=== PATIENT | male | born 1980 | race Caucasian/White ===

== ENCOUNTER 2020-08-16 14:19 | Outpatient (REF) | payer BC, MEDICAID, SELFPAY ==
[2020-08-16 14:33] LABS: COVID-19 Test Positive (Negative)
== END 2020-08-16 14:20 | disposition home or self-care (01) ==
LOC: HO.LAB 14:19
PROVIDERS: Visit Provider Internal Medicine
DX: Z20.822 Contact with and (suspected) exposure to COVID-19 (principal)
CPT/HCPCS: 36415; 87635; C9803

== ENCOUNTER 2020-10-28 09:30 | Outpatient (REF) | payer BC, MEDICAID, SELFPAY ==
[2020-10-28 11:27] LABS: MANUAL DIFF FLAG NO
[2020-10-28 11:43] LABS: Basophils Absolute Auto 0.1 X10*3/uL (0.0-0.2); Basophils Percent Auto 0.6 % (0-2); Eosinophils Absolute Auto 0.2 X10*3/uL (0.0-0.4); Eosinophils Percent Auto 2.1 % (0-4); Hematocrit 43.6 % (42-52); Hemoglobin 14.8 g/dl (14.0-18.0); Imm Gran Abs Auto 0.07 X10*3/uL (0.00-0.03); Imm Gran Pct Auto 0.7 % (0.0-0.4); Lymphocytes Absolute Auto 2.4 X10*3/uL (1.2-4.9); Lymphocytes Percent Auto 23.3 % (20-40); Mean Corpuscular HGB Conc 33.9 g/dl (31.0-36.0); Mean Corpuscular Hemoglobin 29.1 pg (27.0-33.0); Mean Corpuscular Volume 85.7 fL (80-98); Mean Platelet Volume 12.2 fL (9.4-12.4); Monocytes Absolute Auto 0.7 X10*3/uL (0.1-1.2); Monocytes Percent Auto 6.8 % (2-11); Neutrophils Absolute Auto 6.8 X10*3/uL (2.0-8.3); Neutrophils Percent Auto 66.5 % (45-73); Platelet Count 178 X10*3/uL (160-400); Red Blood Count 5.09 X10*6/uL (4.60-5.80); Red Cell Distribution Width 13.1 % (11.0-16.0); White Blood Count 10.2 X10*3/uL (4.8-10.8)
[2020-10-28 11:48] LABS: Estimated Average Glucose 260 mg/dL; Hemoglobin A1c % 10.7 %
[2020-10-28 12:02] LABS: Creatinine Urine 114.35 mg/dL; Microalbum/Creatinine Ratio Ur 15.7 ug/mg cr
[2020-10-28 12:15] LABS: Alanine Aminotransferase 32 U/L (0-40); Alkaline Phosphatase 70 U/L (39-117); Anion Gap 14 (12-20); Aspartate Amino Transferase 19 U/L (5-37); Bilirubin Total 0.4 mg/dL (0.0-1.0); Blood Urea Nitrogen 13 mg/dL (9-16); Calcium 9.2 mg/dL (8.4-10.2); Carbon Dioxide 26 mmol/L (22-29); Chloride 100 mmol/L (96-108); Cholesterol 152 mg/dL; Estimated Glomerular Filt Rate > 60; Glucose Fasting 242 mg/dL (60-99); HDL Cholesterol 28 mg/dL; LDL Cholesterol Calculated 93 mg/dl; Potassium 4.4 mmol/L (3.3-5.1); Sodium 136 mmol/L (135-145); Total Protein 6.6 g/dL (6.5-8.0); Triglycerides 159 mg/dL
[2020-10-28 12:18] LABS: Thyroid Stimulating Hormone 0.59 uIU/mL (0.32-4.0)
== END 2020-10-28 09:31 | disposition home or self-care (01) ==
LOC: HO.HMGCLDS 09:30
PROVIDERS: PCP Internal Medicine; Visit Provider Internal Medicine
DX: Z00.00 Encounter for general adult medical examination without abnormal findings (principal); E03.9 Hypothyroidism, unspecified; E11.9 Type 2 diabetes mellitus without complications
CPT/HCPCS: 36415; 80053; 80061; 82043; 83036; 84443; 85025

== ENCOUNTER 2021-01-25 07:51 | Emergency (ER) | payer BC, MEDICAID, SELFPAY ==
--- NOTE | ~2021-01-25 | CT_ITS ---
EXAMINATION: CT ABDOMEN AND PELVIS WITH CONTRAST CLINICAL INFORMATION: Lower abdominal pain. Large nonreducible tender hernia. COMPARISON: None TECHNIQUE: Multidetector volumetric images were obtained from the superior aspect of the liver through the pubic symphysis following administration 100 mL of Omnipaque 350 intravenous contrast. Sagittal and coronal reformatted images were obtained on the technologist's workstation. This CT examination was performed using dose optimization techniques as appropriate, variously including the following: *Automated exposure control *Adjustment of mA and/or kV according to patient size (this includes techniques or standardized protocols for targeted exams where dose is matched to indication/reason for exam; i.e. extremities or head) *Use of iterative reconstruction technique DLP: 1952 mGy-cm FINDINGS: Visualized lung bases are well aerated. The liver is mildly enlarged and demonstrates diffusely decreased attenuation. The gallbladder is normal in appearance. Mild fatty atrophy of the pancreas. The spleen is mildly enlarged measuring 15 cm in maximum dimension. The adrenal glands are unremarkable. Symmetrically enhancing kidneys. No hydronephrosis bilaterally. The stomach is decompressed. Normal caliber loops of small and large bowel. Normal appendix. Large ventral abdominal hernia containing several loops of nonobstructed small bowel. Fascial defect measures approximately 8 x 7 cm in transverse by craniocaudal dimension. A small amount of fluid is also noted dependently within the hernia sac. Normal caliber abdominal aorta. The bladder is normal in appearance. The prostate gland is not enlarged. No inguinal lymphadenopathy. No gross free pelvic fluid. Mild diffuse degenerative changes of the spine. CT/CT abdomen pelvis w con IMPRESSION: 1. Large ventral hernia containing several loops of nonobstructed small bowel. 2. Mild hepatosplenomegaly with diffusely decreased liver attenuation suggesting hepatic steatosis.
[2021-01-25 07:59] VITALS: BP 150/82; PULSE 80; RESP 18; TEMP 36.7; O2SAT 97; BMI 58.3
--- NOTE | 2021-01-25 08:33 | ED.ABDPAIN ---
HPI - Abdominal Pain General Chief Complaint: Abdominal Pain Stated Complaint: abd pain Time Seen by Provider: 01/25/21 08:21 Source: patient Mode of arrival: ambulatory Limitations: no limitations History of Present Illness HPI narrative: 40 y/o male with history of DM2, morbid obesity, HTN, ventral hernia who presents to the ER with 1 day of lower abdominal pain. Patient reports after taking metformin on empty stomach yesterday he started having lower abdominal pain & nausea. He reports the pain is in his lower abdomen and around his hernia and radiates upward. He has not vomited but tried to self induce vomiting yesterday without effect. He has had no fever or chills. He has had normal bowel movements last was right before arrival. He did not take his metformin last night or this morning. He does not have a glucometer and does not know what his sugars have been reading. He has seen a surgeon in the past for his hernia and has been non-reducible for several years. His surgeon initially stated it would be operated on once it was on able to be reduced but since he has not had pain with it decision was made to hold off on surgery. MD elicited complaint: abdominal pain Pertinent past history: other (Abdominal wall hernia) Onset (ago): day(s) (1) Pain Consistency: constant Location: RLQ and LLQ Severity: moderate Pain scale (0-10): 6 Quality: aching Radiation: epigastric Migration to: no migration Exacerbating factors: movement and other (Palpation) Relieving factors: rest Associated symptoms: nausea Related Data Previous Rx's Medication Instructions Recorded enalapril maleate 20 mg tablet 20 mg PO BID #180 tab 03/11/20 metformin 500 mg tablet 1,000 mg PO BID 30 Days #120 tab 11/08/20 clotrimazole-betamethasone 1 1 appl TOPICAL BID 14 Days #45 g 11/18/20 %-0.05 % topical cream fluconazole 100 mg tablet 100 mg PO DAILY #3 tab 11/18/20 (Diflucan) polyethylene glycol 3350 17 17 g PO DAILY #238 g 01/25/21 gram/dose oral powder (Miralax) Allergies Allergy/AdvReac Type Severity Reaction Status Date / Time hepatitis B virus vaccine Allergy Severe RASH Verified 08/16/20 13:56 [Hepatitis B Virus Vaccine] Review of Systems Review of Systems Constitutional: No Fever, No Chills ENT/Mouth: No sore throat, No Rhinorrhea, No Swallowing Difficulty Cardiovascular: No Chest Pain, No SOB, No Orthopnea, No Edema Respiratory: No Cough, No Sputum, No Wheezing, No dyspnea Gastrointestinal: + Nausea, No Vomiting, No Diarrhea, + abdominal Pain, No Hematochezia, No Melena Genitourinary: No Dysuria, No Urinary Frequency, No Hematuria Musculoskeletal: No joint pain, No Myalgias Skin: No Skin Lesions, No rash Neuro: No Weakness, No Numbness, No Dizziness, No Headache, + Fatigue Psych: + Anxiety/Panic, + Depression Heme/Lymph: No Bruising, No Lymphadenopathy Endocrine: No Polyuria, No Polydipsia Physical Exam Vital Signs: Vital Signs: Last Vital Signs Temp 98.1 F 01/25/21 07:59 Pulse 80 01/25/21 07:59 Resp 18 01/25/21 07:59 BP 150/82 H 01/25/21 07:59 Pulse Ox 97 01/25/21 07:59 Body Mass Index 58.3 Appearance: Alert. Oriented X3. No acute distress. Eyes: Pupils equal, round and reactive to light. ENT: Pharynx normal. Neck: Normal inspection. Neck supple. CVS: Normal heart rate and rhythm. Pulses normal. Respiratory: No respiratory distress. Breath sounds normal. Abdomen: Morbidly obese, Soft with large rounded nonreducible hernia, tender with mild erythema on the skin surface. +BS x4 Skin: Skin warm and dry. Normal skin color. Normal skin turgor. No rashes. Extremities: No lower extremity edema. Neuro: Oriented X 3. No motor deficit. No sensory deficit. Course Course Course Narrative: 40 y/o male with history of morbid obesity and longstanding large ventral hernia who presents with lower abdominal pain radiating into his upper abdomen since yesterday. No pain at rest, pain with palpation of the hernia and with movement. Will get basic lab workup and CT scan for further evaluation. It does not appear to an acute surgical issue given its chronicity and lack of pain at rest. Reevaluation(s) Reevaluation #1: Labs are unremarkable. CT scan is showing a large ventral hernia with an 8 cm defect, several loops of non-obstructed bowel within the hernia. Hernia is able to be partially reduced without exquisite pain. He tolerated it well. No signs of strangulation or incarceration. At this time there is no need for acute surgical intervention. Will refer to Bariatric surgery for further evaluation and initiate a bowel regimen. Tylenol and motrin recommended for pain and patient is stable for discharge home with outpatient follow up. MDM - Abdominal Pain Lab Data Result diagrams: 01/25/21 09:27 01/25/21 09:27 Labs: Lab Results 01/25/21 01/25/21 01/25/21 Range/Units 09: 09: 09:27 WBC 11.6 H (4.8-10.8) X10*3/uL RBC 4.84 (4.60-5.80) X10*6/uL Hgb 14.3 (14.0-18.0) g/dl Hct 41.0 L (42-52) % MCV 84.7 (80-98) fL MCH 29.5 (27.0-33.0) pg MCHC 34.9 (31.0-36.0) g/dl RDW 13.2 (11.0-16.0) % Plt Count 158 L (160-400) X10*3/uL MPV 11.4 (9.4-12.4) fL Immature Gran % (Auto) 0.5 H (0.0-0.4) % Neut % (Auto) 67.9 (45-73) % Lymph % (Auto) 21.9 (20-40) % [place] % (Auto) 7.2 (2-11) % Eos % (Auto) 2.2 (0-4) % Baso % (Auto) 0.3 (0-2) % Lymph # (Auto) 2.6 (1.2-4.9) X10*3/uL [place] # (Auto) 0.8 (0.1-1.2) X10*3/uL Eos # (Auto) 0.3 (0.0-0.4) X10*3/uL Baso # (Auto) 0.0 (0.0-0.2) X10*3/uL Abs Immat Gran (auto) 0.06 H (0.00-0.03) X10*3/uL Absolute Neuts (auto) 7.9 (2.0-8.3) X10*3/uL Absolute Nucleated RBC 0.000 (0.0-0.012) X10*3/uL Nucleated RBC % (auto) 0.0 (0.0-0.2) /100WBC Sodium 135 (135-145) mmol/L Potassium 4.4 (3.3-5.1) mmol/L Chloride 99 (96-108) mmol/L Carbon Dioxide 28 (22-29) mmol/L Anion Gap 12 (12-20) BUN 11 (9-16) mg/dL Creatinine 0.75 (0.5-1.4) mg/dL Estim Creat Clear Calc 228.3 Estimated GFR > 60 POC Glucose (60-115) mg/dL Random Glucose 260 H (60-115) mg/dL Estimat Average Glucose 249 mg/dL Hemoglobin A1c % 10.3 % Calcium 8.7 (8.4-10.2) mg/dL Total Bilirubin 0.5 (0.0-1.0) mg/dL AST 14 (5-37) U/L ALT 24 (0-40) U/L Alkaline Phosphatase 59 (39-117) U/L Total Protein 6.3 L (6.5-8.0) g/dL Albumin 3.7 (3.5-5.0) g/dL Lipase 34 (8-78) U/L Urine Color Urine Appearance Urine pH (5.0-8.0) Ur Specific [place] (1.005-1.025) Urine Protein (NEG-TRACE) MG/DL Urine Glucose (UA) (NEG) MG/DL Urine Ketones (NEG) MG/DL Urine Blood (NEG) Urine Nitrite (NEG) Ur Leukocyte Esterase (NEG) 01/25/21 01/25/21 Range/Units 09:33 10:27 WBC (4.8-10.8) X10*3/uL RBC (4.60-5.80) X10*6/uL Hgb (14.0-18.0) g/dl Hct (42-52) % MCV (80-98) fL MCH (27.0-33.0) pg MCHC (31.0-36.0) g/dl RDW (11.0-16.0) % Plt Count (160-400) X10*3/uL MPV (9.4-12.4) fL Immature Gran % (Auto) (0.0-0.4) % Neut % (Auto) (45-73) % Lymph % (Auto) (20-40) % [place] % (Auto) (2-11) % Eos % (Auto) (0-4) % Baso % (Auto) (0-2) % Lymph # (Auto) (1.2-4.9) X10*3/uL [place] # (Auto) (0.1-1.2) X10*3/uL Eos # (Auto) (0.0-0.4) X10*3/uL Baso # (Auto) (0.0-0.2) X10*3/uL Abs Immat Gran (auto) (0.00-0.03) X10*3/uL Absolute Neuts (auto) (2.0-8.3) X10*3/uL Absolute Nucleated RBC (0.0-0.012) X10*3/uL Nucleated RBC % (auto) (0.0-0.2) /100WBC Sodium (135-145) mmol/L Potassium (3.3-5.1) mmol/L Chloride (96-108) mmol/L Carbon Dioxide (22-29) mmol/L Anion Gap (12-20) BUN (9-16) mg/dL Creatinine (0.5-1.4) mg/dL Estim Creat Clear Calc Estimated GFR POC Glucose 228 H (60-115) mg/dL Random Glucose (60-115) mg/dL Estimat Average Glucose mg/dL Hemoglobin A1c % % Calcium (8.4-10.2) mg/dL Total Bilirubin (0.0-1.0) mg/dL AST (5-37) U/L ALT (0-40) U/L Alkaline Phosphatase (39-117) U/L Total Protein (6.5-8.0) g/dL Albumin (3.5-5.0) g/dL Lipase (8-78) U/L Urine Color YELLOW Urine Appearance CLEAR Urine pH 7.5 (5.0-8.0) Ur Specific [place] 1.015 (1.005-1.025) Urine Protein NEG (NEG-TRACE) MG/DL Urine Glucose (UA) 250 H (NEG) MG/DL Urine Ketones NEG (NEG) MG/DL Urine Blood NEG (NEG) Urine Nitrite NEG (NEG) Ur Leukocyte Esterase NEG (NEG) Discharge Plan Discharge Clinical Impression: Ventral hernia Qualifiers: Obstruction and gangrene presence: without obstruction or gangrene Qualified Code(s): K43.9 - Ventral hernia without obstruction or gangrene Patient Disposition: Home, Self-Care Instructions: Ventral Hernia (ED), Ventral Hernia Repair (DC) Additional Instructions: Your CT scan today showed the large hernia in your abdomen with stool within it. No obstruction. Recommend starting the prescribed laxative to help clear out your bowels You can also add over the counter colace and senna Recommend following up with the Bariatric surgeron for further evaluation If you develop worsening pain or vomiting, come back to the ER for further evaluation. Prescriptions: New polyethylene glycol 3350 [Miralax] 17 gram/dose powder 17 g PO DAILY Qty: 238 RF: 0 No Action enalapril maleate 20 mg tablet 20 mg PO BID Qty: 180 RF: 8 metformin 500 mg tablet 1,000 mg PO BID 30 Days Qty: 120 RF: 5 clotrimazole-betamethasone 1-0.05 % cream 1 appl topical BID 14 Days Qty: 45 RF: 0 fluconazole [Diflucan] 100 mg tablet 100 mg PO DAILY Qty: 3 RF: 0 Referrals: Nik Altamirano MD [Physician] - 1 week (large ventral hernia, painful. BMI 58) Stand Alone Forms: Work/School Release [facility] Past Medical History Medical History (Updated 01/25/21 @ 12:03 by NILSON Gallegos) Diabetes mellitus Surgical History History of surgery on arm Family History Family History Father Hypertension Mother Hypertension Maternal Grandmother CAD (coronary artery disease) Maternal Grandfather Lung cancer Smoker Social History Social History (Updated 08/16/20 @ 13:57 by MARICRUZ Bill) Alcohol intake: never Patient Tobacco Use Status: Current everyday Tobacco user Cigarettes Per Day: 10 Use of substances other than those prescribed or required for medical reasons: Yes Substance Use Type: Marijuana Advance Directives: No Advance Directives Information Provided: No
--- NOTE | 2021-01-25 09:28 | PC.NURSE ---
pt's weight is 195.4kg (bed weight)
[2021-01-25 09:33] LABS: MANUAL DIFF FLAG NO
[2021-01-25 09:35] LABS: Basophils Percent Auto 0.3 % (0-2); Eosinophils Absolute Auto 0.3 X10*3/uL (0.0-0.4); Eosinophils Percent Auto 2.2 % (0-4); Hemoglobin 14.3 g/dl (14.0-18.0); Imm Gran Abs Auto 0.06 X10*3/uL (0.00-0.03); Imm Gran Pct Auto 0.5 % (0.0-0.4); Lymphocytes Absolute Auto 2.6 X10*3/uL (1.2-4.9); Lymphocytes Percent Auto 21.9 % (20-40); Mean Corpuscular HGB Conc 34.9 g/dl (31.0-36.0); Mean Corpuscular Hemoglobin 29.5 pg (27.0-33.0); Mean Corpuscular Volume 84.7 fL (80-98); Mean Platelet Volume 11.4 fL (9.4-12.4); Monocytes Absolute Auto 0.8 X10*3/uL (0.1-1.2); Monocytes Percent Auto 7.2 % (2-11); Neutrophils Absolute Auto 7.9 X10*3/uL (2.0-8.3); Neutrophils Percent Auto 67.9 % (45-73); Platelet Count 158 X10*3/uL (160-400); Red Blood Count 4.84 X10*6/uL (4.60-5.80); Red Cell Distribution Width 13.2 % (11.0-16.0); White Blood Count 11.6 X10*3/uL (4.8-10.8)
[2021-01-25 09:38] LABS: Glucose, Whole Blood 228 mg/dL (60-115)
[2021-01-25] MEDS: 0.9 % Sodium Chloride 1,000 ML 999 ML IV (09:40)
[2021-01-25 09:42] LABS: Estimated Average Glucose 249 mg/dL; Hemoglobin A1c % 10.3 %
[2021-01-25 09:50] LABS: Alanine Aminotransferase 24 U/L (0-40); Albumin Level 3.7 g/dL (3.5-5.0); Alkaline Phosphatase 59 U/L (39-117); Anion Gap 12 (12-20); Aspartate Amino Transferase 14 U/L (5-37); Bilirubin Total 0.5 mg/dL (0.0-1.0); Blood Urea Nitrogen 11 mg/dL (9-16); Calcium 8.7 mg/dL (8.4-10.2); Carbon Dioxide 28 mmol/L (22-29); Chloride 99 mmol/L (96-108); Creatinine Clr Calc Pharmacy 228.3; Estimated Glomerular Filt Rate > 60; Glucose Random 260 mg/dL (60-115); Lipase 34 U/L (8-78); Potassium 4.4 mmol/L (3.3-5.1); Sodium 135 mmol/L (135-145); Total Protein 6.3 g/dL (6.5-8.0)
[2021-01-25 10:33] LABS: Appearance Urine CLEAR; Color Urine YELLOW; Glucose Urine UA 250 MG/DL (NEG); Leukocyte Esterase Urine NEG (NEG); Nitrite Urine NEG (NEG); PH 7.5 (5.0-8.0); Specific Gravity - Urine 1.015 (1.005-1.025); Urine Blood NEG (NEG); Urine Ketones NEG (NEG); Urine Protein NEG (NEG-TRACE)
[2021-01-25] MEDS: iohexoL 350 MG/ML 100 ML INFUS..BTL IV (11:00)
[2021-01-25] MEDS: polyethylene glycoL 3350 17 GM POWD.PACK PO (12:26)
== END 2021-01-25 12:42 | disposition home or self-care (01) ==
PROVIDERS: Physician Assistant; Emergency Provider Emergency Medicine; PCP Internal Medicine
DX: K43.9 Ventral hernia without obstruction or gangrene (principal); I10 Essential (primary) hypertension; E11.9 Type 2 diabetes mellitus without complications; E66.01 Morbid (severe) obesity due to excess calories; Z68.43 Body mass index [BMI] 50.0-59.9, adult; Z79.84 Long term (current) use of oral hypoglycemic drugs
CPT/HCPCS: 36415; 74177; 80053; 81003; 82947; 83036; 83690; 85025; 96360; 99284; Q9967

== ENCOUNTER 2021-04-16 10:05 | Emergency (ER) | payer BC, MEDICAID, SELFPAY ==
--- NOTE | ~2021-04-16 | XR_ITS ---
EXAMINATION: XR LUMBOSACRAL SPINE CLINICAL INFORMATION: Low back pain. COMPARISON: None TECHNIQUE: Three views of the lumbosacral spine. Penetration is suboptimal. FINDINGS: There is normal lumbar lordosis and spinal alignment. Mild lumbar levoscoliosis is seen with apex at L3. Mild degenerative disc disease is seen from T12-L1 to L3-L4 with disc space narrowing and marginal osteophyte formation. The vertebral bodies are intact. There is no acute fracture. The facet joints are unremarkable. The soft tissues are unremarkable. XR/XR lumbar spine 2-3V IMPRESSION: Mild lumbar levoscoliosis and mild superior degenerative changes without acute abnormality.
[2021-04-16 11:36] VITALS: BP 180/80; PULSE 81; RESP 18; TEMP 36.6; O2SAT 96; BMI 58.3
--- NOTE | 2021-04-16 14:15 | ED.FALL ---
HPI - Fall General Chief Complaint: Fall Stated Complaint: fell down stairs/ back pain Time Seen by Provider: 04/16/21 14:05 Source: patient Mode of arrival: ambulatory Limitations: no limitations History of Present Illness HPI Narrative: 40-year-old male presenting to the ED after he had a mechanical fall where he fell down approximately 3 steps ride so arrival due to black ice. He denies head injury or loss of consciousness. He denies any other injuries complaints or concerns at this time. He denies any paresthesias, bowel or bladder incontinence or retention. He denies being on any blood thinners. 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) Fall from: down stairs (#) (Approximately 3 steps) Fall witnessed: no Place fall occurred: street (Outside of his house) Loss of consciousness: none Prolonged down time: no Symptoms prior to fall: none Context: tripped/slipped Location of injury: back Severity: severe Severity scale (1-10): >10 Quality: aching and throbbing Associated symptoms (after fall): denies Related Data Previous Rx's Medication Instructions Recorded enalapril maleate 20 mg tablet 20 mg PO BID #180 tab 03/11/20 metformin 500 mg tablet 1,000 mg PO BID 30 Days #120 tab 11/08/20 clotrimazole-betamethasone 1 1 appl TOPICAL BID 14 Days #45 g 11/18/20 %-0.05 % topical cream fluconazole 100 mg tablet 100 mg PO DAILY #3 tab 11/18/20 (Diflucan) polyethylene glycol 3350 17 17 g PO DAILY #238 g 01/25/21 gram/dose oral powder (Miralax) diazepam 10 mg tablet (Valium) 10 mg PO Q8H PRN #14 tab 04/16/21 docusate sodium 100 mg capsule 100 mg PO BID PRN #14 cap 04/16/21 (Colace) ibuprofen 800 mg tablet 800 mg PO Q8H PRN #14 tab 04/16/21 oxycodone 5 mg tablet 5 mg PO Q6H PRN #14 tab 04/16/21 Allergies Allergy/AdvReac Type Severity Reaction Status Date / Time hepatitis B virus vaccine Allergy Severe RASH Verified 08/16/20 13:56 [Hepatitis B Virus Vaccine] Review of Systems Review of Systems: Constitutional : No trauma, No Weight loss, No Fever, No Chills, ENT/Mouth : No Hearing loss, No Ear Pain, No Nasal Congestion, No Sinus Pain, No Hoarseness, No sore throat, No Rhinorrhea, No Swallowing Difficulty Cardiovascular : No Chest Pain, No SOB Respiratory : No Cough, No Dyspnea Gastrointestinal : No Nausea, No Vomiting, No Diarrhea, No abdominal Pain, No Hematochezia, No Melena Genitourinary : No Dysuria, No Urinary Frequency, No Hematuria, No Urinary or Bowel Incontinence/retention Musculoskeletal : + Back pain due to fall, No neck pain, No joint stiffness, No joint swelling Skin : No Skin Lesions, No rash or signs of infection Neuro : No Weakness, No radiation, No Numbness, No Paresthesias, No headache, no loss of bowel or bladder incontinence, no saddle anesthesia, Focal weakness, No radiation Denies history of IV drug usage. Yes all other systems are reviewed and are negative [facility] Past Medical History Attestation statement: The following information was validated with the patient. Medical History Diabetes mellitus Surgical History History of surgery on arm Family History Family History Father Hypertension Mother Hypertension Maternal Grandmother CAD (coronary artery disease) Maternal Grandfather Lung cancer Smoker Social History Social History Alcohol intake: never Patient Tobacco Use Status: Current everyday Tobacco user Cigarettes Per Day: 10 Substance Use Type: Marijuana Advance Directives: No Advance Directives Information Provided: No Physical Exam Vital Signs: Vital Signs: Last Vital Signs Temp 97.9 F 04/16/21 11:36 Pulse 81 04/16/21 11:36 Resp 18 04/16/21 11:36 BP 180/80 H 04/16/21 11:36 Pulse Ox 96 04/16/21 11:36 BMI result Body Mass Index 58.3 vital signs have been reviewed as normal and appeared to be correct. Blood pressure normal. Heart rate normal. Respiration rate normal. Temperature normal. Oxygen saturation normal. Appearance: Alert. Oriented X3. No acute distress. Head: Normal external exam. Normocephalic. Atraumatic. No Suazo signs noted. No raccoon eyes noted Eyes: PERRLA. EOMI. Conjunctiva and sclera normal. Eyelids normal. ENT: EAC normal. TM's Normal. No septal hematoma noted. No hemotympanum noted. Pharynx normal. Uvula midline. Moist mucous membranes. No trismus noted. No drooling noted. No muffled voice noted. Neck: Normal inspection. Neck supple. FROM. No adenopathy. Thyroid Normal. No meningeal signs. No neck mass noted. CVS: Normal heart rate and rhythm. Heart sound normal. No murmurs noted. Pulses normal throughout. Respiratory: No respiratory distress. Painless inspiration. Breath sounds normal. No wheezes/rales/rhonchi noted. Chest nontender. No accessory muscle usage noted or decreased air movement noted. Abdomen: Soft and nontender. Bowel sounds normal in all 4 quadrants. No distention noted. No organomegaly noted. No visible injury noted. Back: No CVA tenderness. Full range of motion noted. No obvious deformities, or edema. Mild para-spinal muscular tenderness from lumbar region to coccyx. Full ROM in back and lower extremities. 5/5 strength hip extension/flexion, abduction, adduction. Mild Lumbar pain with hip flexion against resistance. Straight leg raise test negative on right; Straight leg raise test negative on left; Reflexes normal ankle and knee bilaterally; EHL motor strength normal bilaterally. No rashes/lesion/induration/fluctuance or signs infection noted. No abrasion/laceration/ecchymosis or obvious signs of trauma. Skin: Skin warm and dry. Normal skin color. Normal skin turgor. No rashes/lesions/lacerations noted. Extremities: Extremities exhibit normal range of motion. Extremities nontender. Neuro: Oriented X 3. No motor deficit. No sensory deficit. Reflexes normal. Patient has a normal steady gait. Course Course Course Narrative: Pt c likely muscular pain, but could be herniated disc. Neuro exam shows no deficits. Not c/w AAA/epidural abscess/dissection.No high risk Hx (Incont, fever, immunosupp, recent surgery/LP, coag, signif trauma, wt loss, puls mass, hx/o Ca, TB, or IVDU) to warrant MRI/CT today. Not c/w Pyelo/UTI/kidney stone/spinal fx. Not cauda equina syndrome. X-ray imaging of lumbar spine obtained and negative for any acute process only revealed chronic changes. Therefore at this time will DC home with symptomatic treatment instructions return if any new or worsening symptoms to follow up with primary care provider. Patient understands agrees with this plan. MDM - Fall Medical Records Attestation: I reviewed the patient's medical records. Imaging Data Lumbar spine x-ray: Attestation: I personally reviewed and interpreted this imaging study as follows: Radiologist's impression: FINDINGS: There is normal lumbar lordosis and spinal alignment. Mild lumbar levoscoliosis is seen with apex at L3. Mild degenerative disc disease is seen from T12-L1 to L3-L4 with disc space narrowing and marginal osteophyte formation. The vertebral bodies are intact. There is no acute fracture. The facet joints are unremarkable. The soft tissues are unremarkable. XR/XR lumbar spine 2-3V IMPRESSION: Mild lumbar levoscoliosis and mild superior degenerative changes without acute abnormality. Discharge Plan Discharge Clinical Impression: Lumbar strain, Fall Patient Disposition: Home, Self-Care Instructions: Low Back Strain (ED), Lower Back Exercises (ED) Prescriptions: New oxycodone 5 mg tablet 5 mg PO Q6H PRN (Reason: pain) Qty: 14 RF: 0 docusate sodium [Colace] 100 mg capsule 100 mg PO BID PRN (Reason: Constipation) Qty: 14 RF: 0 diazepam [Valium] 10 mg tablet 10 mg PO Q8H PRN (Reason: muscle spasm) Qty: 14 RF: 0 ibuprofen 800 mg tablet 800 mg PO Q8H PRN (Reason: pain) Qty: 14 RF: 0 No Action enalapril maleate 20 mg tablet 20 mg PO BID Qty: 180 RF: 8 metformin 500 mg tablet 1,000 mg PO BID 30 Days Qty: 120 RF: 5 clotrimazole-betamethasone 1-0.05 % cream 1 appl topical BID 14 Days Qty: 45 RF: 0 fluconazole [Diflucan] 100 mg tablet 100 mg PO DAILY Qty: 3 RF: 0 polyethylene glycol 3350 [Miralax] 17 gram/dose powder 17 g PO DAILY Qty: 238 RF: 0 Referrals: Vic Garcia MD [Primary Care Provider] - 2 days Stand Alone Forms: Work/School Release Print Language: Swedish
[2021-04-16] MEDS: Ibuprofen 800 MG TABLET PO (14:34)
== END 2021-04-16 14:37 | disposition home or self-care (01) ==
PROVIDERS: Emergency Provider Emergency Medicine; PCP Internal Medicine
DX: S39.012A Strain of muscle, fascia and tendon of lower back, initial encounter (principal); E11.9 Type 2 diabetes mellitus without complications; W00.0XXA Fall on same level due to ice and snow, initial encounter; Y93.9 Activity, unspecified; Y92.410 Unspecified street and highway as the place of occurrence of the external cause; Y99.9 Unspecified external cause status
CPT/HCPCS: 72100; 99283

== ENCOUNTER 2021-07-07 12:26 | Outpatient (REF) | payer BC, MEDICAID, SELFPAY ==
--- NOTE | ~2021-07-07 | XR_ITS ---
EXAMINATION: XR KNEE, RIGHT CLINICAL INFORMATION: Right knee pain. COMPARISON: None TECHNIQUE: AP and lateral views of the right knee. FINDINGS: Tiny lateral and patellofemoral compartment marginal osteophytes. No osseous erosion. No fracture or dislocation. Trace joint effusion. Superior patellar enthesophytes. XR/XR knee RT 2V IMPRESSION: Minimal patellofemoral and lateral compartment osteoarthritis. Trace joint effusion.
== END 2021-07-07 12:27 | disposition home or self-care (01) ==
LOC: HO.XRAY 12:26
PROVIDERS: PCP Internal Medicine; Visit Provider Internal Medicine
DX: M25.561 Pain in right knee (principal)
CPT/HCPCS: 73560

== ENCOUNTER 2021-08-19 11:00 | Outpatient (RCR) | payer BC, MEDICAID, SELFPAY ==
--- NOTE | 2021-05-19 13:11 | MHC.PT.EP ---
[facility] [place] Office [place] Office [place] Office [address] [phone] F: [phone] F: [phone] F: [phone] F: [phone] Physical Therapy Plan of Care Date of Evaluation: Date of Surgery: Diagnosis: lumbago with L sided sciatica Assessment: Patient is a 41 year old R handed male who presents with s/s consistent with spondylosis of lumbosacral region. He works with daily job demands including standing, lifting at [employer]. Patient past medical history is DM and obesity. Current impairments include pain, posture, ROM, strength, activity tolerance and functional mobility. Functional limitations include decreased ability to sleep, lift, bend, carry, sit for longer periods, and transfer. Patient is motivated with good rehab potential. Skilled PT will address impairments and functional limitations in order to achieve goals. 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 Manual therapy to restore motion and function. Therapeutic exercise to improve strength and flexibility. Neuromuscular re-education for posture and balance. Therapeutic activities to return to functional activities of daily living. Electronically signed by: Jordin Norman, PT Please sign and return to therapist. Thank you for your referral.
--- NOTE | 2022-01-01 08:40 | MHC.PT.DC ---
[facility] [place] Office [place] [facility] [place] [facility] [address] Dang Naidu [address] [phone] F: [phone] F: [phone] F: [phone] F: [phone] Physical Therapy Discharge Report Diagnosis: lumbago with L sided sciatica Date of Surgery: Date of Evaluation: 05/19/21 Date of Discharge: 09/13/21 Treatments to Date: 8 Cancellations to Date: No Shows to Date: Discharge Status: Improved Function Independent with HEP Discharge Summary: We discussed plan at length today and decided to hold on continuing therapy. Pt has HEP and ability to continue on his own. I also encouraged him to follow up with [facility] as indicated by his referring MD. He will call back after he does this. Electronically signed by: Jordin Norman PT Please sign and return to therapist. Thank you for your referral.
== END 2022-01-01 08:40 | disposition home or self-care (01) ==
LOC: HO.PTCHIC 11:00
PROVIDERS: Visit Provider Nurse Practitioner Acute Care
DX: M47.817 Spondylosis without myelopathy or radiculopathy, lumbosacral region (principal)
CPT/HCPCS: 97014; 97110; 97161

== ENCOUNTER 2021-11-25 10:27 | Inpatient (IN) | payer BC, MEDICAID, SELFPAY ==
[2021-11-25] VITALS (14 sets, daily range): BP systolic 140–194; BP diastolic 68–129; PULSE 65–88; RESP 15–24; TEMP 35.7–37; O2SAT 93–100; BMI 58.3
--- NOTE | ~2021-11-25 | CT_ITS ---
EXAMINATION: CT ABDOMEN AND PELVIS WITH CONTRAST CLINICAL INFORMATION: Umbilical hernia and pain. COMPARISON: CT of the abdomen and pelvis done on 01/25/2021. TECHNIQUE: Multidetector volumetric images were obtained from the superior aspect of the liver through the pubic symphysis following administration 100 mL of Omnipaque 350 intravenous contrast. Sagittal and coronal reformatted images were obtained on the technologist's workstation. Oral contrast: No This CT examination was performed using dose optimization techniques as appropriate, variously including the following: *Automated exposure control *Adjustment of mA and/or kV according to patient size (this includes techniques or standardized protocols for targeted exams where dose is matched to indication/reason for exam; i.e. extremities or head) *Use of iterative reconstruction technique DLP: 2108 mGy-cm FINDINGS: LUNG BASES: The visualized lung bases are unremarkable. LIVER, GALLBLADDER, AND BILIARY TREE: Diffuse hepatic hypodensity consistent with hepatic steatosis is present. The gallbladder is unremarkable with no evidence of radiopaque gallstones, gallbladder wall thickening, or obvious pericholecystic inflammatory changes. PANCREAS: Unremarkable. SPLEEN: Unremarkable. ADRENAL GLANDS: Unremarkable. KIDNEYS AND URETERS: The kidneys are normal in size, shape, and attenuation. No hydronephrosis, hydroureter, or calculi seen. No perinephric stranding. BLADDER: Unremarkable. GASTROINTESTINAL TRACT: Multiple dilated small bowel loops with air-fluid level are noted within the proximal and mid to lower abdomen. Specific note is made of small bowel and adjacent mesentery containing large umbilical hernia. The maximum transverse width of the fascial defect measures 10.7 cm (614:4). Multiple dilated bowel loops are noted within the herniated sac associated with small amount of fluid and significant fat stranding. The distal exiting small bowel loop appear collapsed. The findings are consistent with small bowel obstruction secondary to umbilical hernia, possibly incarcerated. Clinical correlation is recommended. No evidence of any pneumatosis or free intraperitoneal air. No evidence of any portal mesenteric venous gas. ABDOMINAL WALL: Large [place] umbilical hernia containing obstructing small bowel loops are noted as described above. LYMPH NODES: Normal. VASCULAR: Unremarkable. PELVIC VISCERA: There is no pelvic mass present. No evidence of any free fluid and/or free air present. OSSEOUS STRUCTURES: Severe diffuse osteopenia and moderate multilevel degenerative spondylosis and ankylosis of lower thoracic spine the form of fusion of interspinous as well as the anterior and posterior intervertebral longitudinal ligaments. CT/CT abdomen pelvis w con IMPRESSION: 1. Abnormal study showing evidence of large umbilical hernia containing small bowel loops and mesentery, complicated by superimposed obstruction. The findings are suspicious for possible incarceration. Clinical correlation is recommended. No evidence of any pneumatosis or free intraperitoneal air or evidence of portal mesenteric venous gas. 2. Diffuse hepatic steatosis. Fleischner guidelines were followed.
--- NOTE | 2021-11-25 11:17 | ECG_ITS ---
Test Reason : abd Blood Pressure : / mmHG Vent. Rate : 069 BPM Atrial Rate : 069 BPM P-R Int : 182 ms QRS Dur : 084 ms QT Int : 394 ms P-R-T Axes : 047 037 029 degrees QTc Int : 422 ms Normal sinus rhythm Normal ECG When compared with ECG of 25-APR-2019 13:14, No significant change was found Referred By: Robert Goncalves Electronically Signed By:MORRIS LACY
[2021-11-25 11:49] LABS: MANUAL DIFF FLAG NO
[2021-11-25] MEDS: Ketorolac Tromethamine 15 MG/ML VIAL IVPUSH (11:52)
[2021-11-25] MEDS: HYDROmorphone HCl 1 MG/ML SYRINGE IVPUSH ×3 (11:52→16:49)
[2021-11-25] MEDS: ondansetron HCL 4 MG/2 ML VIAL IVPUSH ×2 (11:52→20:58)
[2021-11-25] MEDS: 0.9 % Sodium Chloride 1,000 ML 999 ML IV (11:53)
[2021-11-25 11:57] LABS: Basophils Absolute Auto 0.1 X10*3/uL (0.0-0.2); Basophils Percent Auto 0.5 % (0-2); Eosinophils Absolute Auto 0.1 X10*3/uL (0.0-0.4); Eosinophils Percent Auto 0.9 % (0-4); Hematocrit 47.6 % (42.0-52.0); Hemoglobin 16.2 g/dl (14.0-18.0); Imm Gran Abs Auto 0.07 X10*3/uL (0.00-0.03); Imm Gran Pct Auto 0.5 % (0.0-0.4); Lymphocytes Absolute Auto 1.7 X10*3/uL (1.2-4.9); Lymphocytes Percent Auto 10.9 % (20-40); Mean Corpuscular Hemoglobin 29.1 pg (27.0-33.0); Mean Corpuscular Volume 85.6 fL (80.0-98.0); Mean Platelet Volume 11.5 fL (9.4-12.4); Monocytes Absolute Auto 0.9 X10*3/uL (0.1-1.2); Neutrophils Absolute Auto 12.5 x10*3/uL (2.0-8.3); Neutrophils Percent Auto 81.2 % (45-73); Platelet Count 184 X10*3/uL (160-400); Red Blood Count 5.56 X10*6/uL (4.60-5.80); Red Cell Distribution Width 13.2 % (11.0-16.0); White Blood Count 15.4 X10*3/uL (4.8-10.8)
[2021-11-25 11:58] LABS: INTERNATIONAL NORM RATIO 0.9 (0.9-1.1); Prothrombin Time 10.8 SEC (10.0-13.1)
[2021-11-25 12:01] LABS: Partial Thromboplastin Time 31.9 SEC (26.0-36.4)
[2021-11-25 12:06] LABS: Lactic Acid 1.7 mmol/L (0.5-2.0)
[2021-11-25 12:14] LABS: Alanine Aminotransferase 23 U/L (0-40); Alkaline Phosphatase 61 U/L (39-117); Anion Gap 17 (12-20); Aspartate Amino Transferase 20 U/L (5-37); Bilirubin Total 0.5 mg/dL (0.0-1.0); Blood Urea Nitrogen 14 mg/dL (9-16); Calcium 8.6 mg/dL (8.4-10.2); Carbon Dioxide 22 mmol/L (22-29); Chloride 102 mmol/L (96-108); Creatinine Clr Calc Pharmacy 238.8; Estimated Glomerular Filt Rate > 60; Glucose Random 205 mg/dL (60-115); Lipase 35 U/L (8-78); Potassium 4.9 mmol/L (3.3-5.1); Sodium 136 mmol/L (135-145); Total Protein 6.6 g/dL (6.5-8.0)
--- NOTE | 2021-11-25 12:14 | ED_ITS ---
HPI - Abdominal Pain General Chief Complaint: Abdominal Pain Stated Complaint: hernia, not able to use bathroom Time Seen by Provider: 11/25/21 10:55 Source: patient Mode of arrival: ambulatory Limitations: no limitations History of Present Illness HPI narrative: 41-year-old male who presents emergency department for evaluation of nausea and abdominal pain which is diffuse and also located over his large, chronic umbilical hernia. Patient states that yesterday around 11:00 hours, he developed nausea which was unusual for him. At around 16:00 hours, he had a gradual onset of abdominal pain. States the pain was located diffusely throughout his abdomen but was more severe over his chronic, large umbilical h ernia. He states the pain was a constant, cramping sensation which had waves of intensity that were 9/10 at its worst. Currently states the pain is 9/10. Patient states that he had nausea but was unable to vomit. He states that he has had small bowel movements yesterday and today. He states that the pain does radiate to his chest and to his back. He denied fever but has had chills. He states he has had rhinorrhea for the past several days. He denied sore throat, cough, vomiting, diarrhea, black stools, bloody stools, frequency, urgency or dysuria. Patient states that he has been having problems with his lower back since June after he fell down some stairs. He is taking gabapentin for this pain. MD elicited complaint: abdominal pain Pertinent past history: other (Large, chronic, umbilical hernia) Onset (ago): day(s) (2) Pain Consistency: constant Location: diffuse and periumbilical Severity: severe Pain scale (0-10): 9 Quality: cramping Radiation: back and chest Migration to: no migration Exacerbating factors: nothing Associated symptoms: nausea and constipation (Small bowel movements x2 days) Related Data Home Medications Medication Instructions Recorded Confirmed gabapentin 300 mg capsule 600 mg PO TID 09/15/21 11/25/21 metformin 500 mg tablet 1,000 mg PO BIDWM 11/25/21 11/25/21 Previous Rx's Medication Instructions Recorded enalapril maleate 20 mg tablet 20 mg PO BID #180 tabs 04/28/21 ibuprofen 800 mg tablet 800 mg PO Q8H PRN pain #20 tabs 08/27/21 sildenafil 50 mg tablet (Viagra) 50 mg PO DAILY PRN sexual activity 10/20/21 #20 tabs Allergies Allergy/AdvReac Type Severity Reaction Status Date / Time hepatitis B virus vaccine Allergy Severe RASH Verified 10/20/21 10:11 [Hepatitis B Virus Vaccine] Review of Systems Review of Systems Yes all other systems are reviewed and are negative [facility] Past Medical History [facility] Narrative: Past medical history: Diabetes mellitus, hypertension, obesity, chronic umbilical hernia. Past surgical history: None. Social history: He smokes 1 pack of cigarettes per day times 20 years. He denies alcohol use. He smokes marijuana 2-3 times daily Medical History Diabetes mellitus Surgical History History of surgery on arm Family History Family History Father Hypertension Mother Hypertension Maternal Grandmother CAD (coronary artery disease) Maternal Grandfather Lung cancer Smoker Social History Social History Housing: Apartment Alcohol intake: never Patient Tobacco Use Status: Current everyday Tobacco user Tobacco use type: Cigarette Cigarettes Per Day: 10 e-Cigarette/Vaping Use: Never Used Second Hand Smoke Exposure: No Substance Use Type: Marijuana Advance Directives: No Advance Directives Information Provided: Yes service: No Current occupational status: employed Current occupational exposures/hazards: No Cognitive needs: No Hearing needs: No Vision needs: Yes Physical Exam ED Vital Signs: Vital Signs - 24 hr 11/25/21 10:47 11/25/21 10:58 11/25/21 15:03 Temperature 96.3 F L 98.6 F Pulse Rate 72 77 69 Respiratory Rate 16 24 H 16 Blood Pressure 174/129 H 194/112 H 153/88 H Pulse Oximetry 99 100 Oxygen Delivery Method Room Air Room Air Room Air BMI result Body Mass Index 58.3 Const Other: Awake, alert, male patient, pleasant, cooperative does appear to be in distress secondary to his abdominal pain, patient has an elevated BMI of 58.3 HENMT Other: Patient has rosacea of the face Head: Yes normal to inspection, Yes normocephalic and Yes atraumatic Ears: external ears normal General nose exam: Normal external nose present Face and sinus: Yes normal facial exam Mouth: Normal oral and palatal mucosa present Throat: Yes posterior oropharynx normal Eyes General: appearance normal, both eyes and all related structures Pupils: Equal, round and reactive pupils present Neck Neck: Yes normal visual inspection, Yes no lymphadenopathy, Yes trachea midline and Yes supple Chest Chest palpation & inspection: normal inspection of the chest and normal palpation of entire chest wall Resp Effort & Inspection: normal respiratory effort and able to speak in complete sentences Auscultation: clear to auscultation bilaterally Cardio Rate: regular rate Rhythm: regular rhythm Heart sounds: S1 normal heart sound present, S2 normal heart sound present and no murmurs GI Inspection: Yes Abdominal panniculus present, Yes obesity and Yes visible herniation (Large umbilical hernia, erythema over the hernia) Palpation (GI): Soft to palpation, Tenderness to palpation present (GI) (Mild diffuse tenderness) periumbilically (Moderate to severe tenderness over umbilical hernia) and no guarding Auscultation: Hyperactive bowel sounds present General: Yes no CVA tenderness Back/Spine/Pelvis Back: no CVA tenderness Skin General skin exam: no rashes or lesions noted Neuro Cranial nerves: Yes CN's II-XII intact bilaterally and Yes Equal, round and reactive pupils present Cognition (Neuro): normal cognition Motor exam (neuro): 5/5 motor strength present throughout Extrem General: Yes normal to inspection Psych Appearance: grossly normal Speech and movement: Normal speech and movement present Affect: normal affect Attitude: cooperative Thought process: Normal thought process present Thought content: Normal thought content present Course Course Course Narrative: 41-year-old male who presents emergency department for evaluation of nausea which began yesterday 11:00 hours and abdominal pain which began at 16:00 hours. The patient has a large, chronic umbilical hernia he states the pain is mainly located over the hernia. He has had no vomiting and only had 2 small bowel movements yesterday and today. Initial vital signs revealed an elevated blood pressure of 174/129 otherwise unremarkable. Patient does appear to be uncomfortable secondary to his pain. He has a large umbilical hernia which is it is very tender to minimal palpation, the hernia is firm, he has hyperactive bowel sounds. Differential includes was not limited to incarcerated hernia, ischemic bowel, constipation. I did order a CBC, CMP, lactic acid, lipase, PT/INR, PTT, COVID-19. CT scan of the abdomen pelvis with IV contrast will be obtained. Patient's nausea was treated with Zofran 4 mg IV. His pain was treated with Dilaudid 1 mg IV and Toradol 15 mg IV. 1225: Laboratory evaluation: WBC elevated 15,400, 81% neutrophils 10% lymphocytes. Glucose elevated 205. Lipase normal. Lactic acid normal 1.7. LFTs normal. 1526: Radiology evaluation: CT scan of the abdomen pelvis with IV contrast being as follows: IMPRESSION: 1. Abnormal study showing evidence of large umbilical hernia containing small bowel loops and mesentery, complicated by superimposed obstruction. The findings are suspicious for possible incarceration. Clinical correlation is recommended. No evidence of any pneumatosis or free intraperitoneal air or evidence of portal mesenteric venous gas. 2. Diffuse hepatic steatosis. Fleischner guidelines were followed. Dictated By:Savannah Thorpe MD The patient initially got relief with the above treatment however his pain is now returned. Patient was given Dilaudid 1 mg IV. I will discuss the CT scan findings and the patient's presentation with the covering surgeon, Dr. Dylan Graham. 1625: The patient was seen by Dr. Graham and he will admit the patient to his service . MDM - Abdominal Pain Lab Data Result diagrams: 11/25/21 11:44 11/25/21 11:44 Labs: Lab Results 11/25/21 11/25/21 11/25/21 Range/Units 11:44 11:44 11:44 WBC 15.4 H (4.8-10.8) X10*3/uL RBC 5.56 (4.60-5.80) X10*6/uL Hgb 16.2 (14.0-18.0) g/dl Hct 47.6 (42.0-52.0) % MCV 85.6 (80.0-98.0) fL MCH 29.1 (27.0-33.0) pg MCHC 34.0 (31.0-36.0) g/dl RDW 13.2 (11.0-16.0) % Plt Count 184 (160-400) X10*3/uL MPV 11.5 (9.4-12.4) fL Immature Gran % (Auto) 0.5 H (0.0-0.4) % Neut % (Auto) 81.2 H (45-73) % Lymph % (Auto) 10.9 L (20-40) % [place] % (Auto) 6.0 (2-11) % Eos % (Auto) 0.9 (0-4) % Baso % (Auto) 0.5 (0-2) % Lymph # (Auto) 1.7 (1.2-4.9) X10*3/uL [place] # (Auto) 0.9 (0.1-1.2) X10*3/uL Eos # (Auto) 0.1 (0.0-0.4) X10*3/uL Baso # (Auto) 0.1 (0.0-0.2) X10*3/uL Abs Immat Gran (auto) 0.07 H (0.00-0.03) X10*3/uL Absolute Neuts (auto) 12.5 H (2.0-8.3) x10*3/uL Absolute Nucleated RBC 0.000 (0.0-0.012) X10*3/uL Nucleated RBC % (auto) 0.0 (0.0-0.2) /100WBC PT 10.8 (10.0-13.1) SEC INR 0.9 (0.9-1.1) APTT 31.9 (26.0-36.4) SEC Sodium 136 (135-145) mmol/L Potassium 4.9 (3.3-5.1) mmol/L Chloride 102 (96-108) mmol/L Carbon Dioxide 22 (22-29) mmol/L Anion Gap 17 (12-20) BUN 14 (9-16) mg/dL Creatinine 0.71 (0.5-1.4) mg/dL Estim Creat Clear Calc 238.8 Estimated GFR > 60 Random Glucose 205 H (60-115) mg/dL Lactic Acid (0.5-2.0) mmol/L Calcium 8.6 (8.4-10.2) mg/dL Total Bilirubin 0.5 (0.0-1.0) mg/dL AST 20 D (5-37) U/L ALT 23 (0-40) U/L Alkaline Phosphatase 61 (39-117) U/L Total Protein 6.6 (6.5-8.0) g/dL Albumin 4.0 (3.5-5.0) g/dL Lipase 35 (8-78) U/L Urine Color Urine Appearance Urine pH (5.0-8.0) Ur Specific [place] (1.005-1.025) Urine Protein (Neg-Trace) mg/dL Urine Glucose (UA) (Negative) mg/dL Urine Ketones (Negative) mg/dL Urine Blood (Negative) Urine Nitrite (Negative) Ur Leukocyte Esterase (Negative) Urine RBC (0-2) /HPF Urine WBC (0-5) /HPF Ur Squamous Epith Cells (0-2) /HPF Urine Bacteria (None Seen) Hyaline Casts (0-2) /LPF COVID-19 (RAMESH) (Negative) COVID-19 Clin Com 11/25/21 11/25/21 11/25/21 Range/Units 11:44 11:44 16:05 WBC (4.8-10.8) X10*3/uL RBC (4.60-5.80) X10*6/uL Hgb (14.0-18.0) g/dl Hct (42.0-52.0) % MCV (80.0-98.0) fL MCH (27.0-33.0) pg MCHC (31.0-36.0) g/dl RDW (11.0-16.0) % Plt Count (160-400) X10*3/uL MPV (9.4-12.4) fL Immature Gran % (Auto) (0.0-0.4) % Neut % (Auto) (45-73) % Lymph % (Auto) (20-40) % [place] % (Auto) (2-11) % Eos % (Auto) (0-4) % Baso % (Auto) (0-2) % Lymph # (Auto) (1.2-4.9) X10*3/uL [place] # (Auto) (0.1-1.2) X10*3/uL Eos # (Auto) (0.0-0.4) X10*3/uL Baso # (Auto) (0.0-0.2) X10*3/uL Abs Immat Gran (auto) (0.00-0.03) X10*3/uL Absolute Neuts (auto) (2.0-8.3) x10*3/uL Absolute Nucleated RBC (0.0-0.012) X10*3/uL Nucleated RBC % (auto) (0.0-0.2) /100WBC PT (10.0-13.1) SEC INR (0.9-1.1) APTT (26.0-36.4) SEC Sodium (135-145) mmol/L Potassium (3.3-5.1) mmol/L Chloride (96-108) mmol/L Carbon Dioxide (22-29) mmol/L Anion Gap (12-20) BUN (9-16) mg/dL Creatinine (0.5-1.4) mg/dL Estim Creat Clear Calc Estimated GFR Random Glucose (60-115) mg/dL Lactic Acid 1.7 (0.5-2.0) mmol/L Calcium (8.4-10.2) mg/dL Total Bilirubin (0.0-1.0) mg/dL AST (5-37) U/L ALT (0-40) U/L Alkaline Phosphatase (39-117) U/L Total Protein (6.5-8.0) g/dL Albumin (3.5-5.0) g/dL Lipase (8-78) U/L Urine Color Yellow Urine Appearance Clear Urine pH 5.5 (5.0-8.0) Ur Specific [place] >= 1.030 H (1.005-1.025) Urine Protein 30 (1+) H (Neg-Trace) mg/dL Urine Glucose (UA) Negative (Negative) mg/dL Urine Ketones Trace (Negative) mg/dL Urine Blood Negative (Negative) Urine Nitrite Negative (Negative) Ur Leukocyte Esterase Negative (Negative) Urine RBC >20 H (0-2) /HPF Urine WBC 0-5 (0-5) /HPF Ur Squamous Epith Cells 3-5 (0-2) /HPF Urine Bacteria None Seen (None Seen) Hyaline Casts 0-2 (0-2) /LPF COVID-19 (RAMESH) Negative (Negative) COVID-19 Clin Com See Note Discharge Plan Discharge Clinical Impression: Incarcerated umbilical hernia, Bowel obstruction Patient Disposition: Admitted As Inpatient Interventions: Admission Worksheet (ED) Last Done: 11/25/21 17:15
[2021-11-25 13:28] LABS: COVID-19 Test Negative (Negative); IDNOW Serial# 16C4AD1C
[2021-11-25] MEDS: iohexoL 350 MG/ML 100 ML INFUS..BTL IV (13:44)
--- NOTE | 2021-11-25 15:43 | PHA.MEDREC ---
Pharmacy Consult ? Medication Reconciliation Pharmacy has completed the medication reconciliation.
[2021-11-25 16:15] LABS: Appearance Urine Clear; Color Urine Yellow; Glucose Urine UA Negative (Negative); Leukocyte Esterase Urine Negative (Negative); Nitrite Urine Negative (Negative); PH 5.5 (5.0-8.0); Specific Gravity - Urine >= 1.030 (1.005-1.025); Urine Blood Negative (Negative); Urine Ketones Trace mg/dL (Negative); Urine Protein 30 (1+) mg/dL (Neg-Trace)
[2021-11-25 16:29] LABS: Bacteria Urine None Seen (None Seen); Hyaline Casts Urine 0-2 /LPF (0-2); RBC Urine >20 /HPF (0-2); WBC Urine 0-5 /HPF (0-5)
--- NOTE | 2021-11-25 16:43 | P.HPGS_ITS ---
History of Present Illness History of Present Illness Date of Service: 11/25/21 Chief complaint: hernia, not able to use bathroom Narrative: Kishore Esposito is a 41 year old male with poorly controlled type 2 diabetes, morbid obesity with a BMI of 58.3/weight of 430 lb, hypertension, possible sleep apnea who recently fell down icy steps earlier this year and has chronic pain related to it. The patient has had an umbilical hernia present for an unclear number of years that is exquisitely painful, incarcerated and causing severe pain and nausea. He has been unable to move his bowels and he presented to the emergency department where I was asked to evaluate him. There has been no prior repair attempts. The patient denies prior abdominal operations. 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 [employer] Review of Systems Review of Systems: Yes all other systems are reviewed and are negative Constitutional: Constitutional: Reports as per [facility] Past Medical History Medical History Diabetes mellitus Family History Family History Father Hypertension Mother Hypertension Maternal Grandmother CAD (coronary artery disease) Maternal Grandfather Lung cancer Smoker Surgical History Surgical History History of surgery on arm Social History Social History Housing: Apartment Alcohol intake: never Patient Tobacco Use Status: Current everyday Tobacco user Tobacco use type: Cigarette Cigarettes Per Day: 10 e-Cigarette/Vaping Use: Never Used Second Hand Smoke Exposure: No Substance Use Type: Marijuana Advance Directives: No Advance Directives Information Provided: Yes service: No Current occupational status: employed Current occupational exposures/hazards: No Cognitive needs: No Hearing needs: No Vision needs: Yes Meds Allergies Allergy/AdvReac Type Severity Reaction Status Date / Time hepatitis B virus vaccine Allergy Severe RASH Verified 10/20/21 10:11 [Hepatitis B Virus Vaccine] Active Medications: Current Medications Pharmacy Consult (Consult Rx Perform Med Rec) 1 each MISCELLANE ONCE PRN PRN Reason: Consult order Home Medications Medication Instructions Recorded Confirmed Last Taken Type gabapentin 300 mg capsule 600 mg PO TID 09/15/21 11/25/21 11/24/21 History metformin 500 mg tablet 1,000 mg PO BIDWM 11/25/21 11/25/21 11/24/21 History Physical Exam Vital Signs: Vital Signs: Last Vital Signs Temp 98.6 F 11/25/21 10:58 Pulse 69 11/25/21 15:03 Resp 16 11/25/21 15:03 BP 153/88 H 11/25/21 15:03 Pulse Ox 100 11/25/21 10:58 O2 Del Method 11/25/21 15:03 BMI result Body Mass Index 58.3 The patient is non-toxic, but anxious and tearful NC/AT, PERRLA, EOMI Mood, affect & judgment all appear appropriate Sclera anicteric conjunctiva pink and moist Oropharynx is clear with no aphthous ulcers, Mallampati class 4, mucous membranes moist Heart is regular, normal S1-S2 no rubs or murmurs Lungs are clear and equal anteriorly with no audible wheezing, rubs or dullness to percussion No CVA tenderness present Abdomen is obese with A TENDER INCARCERATED UMBILICAL HERNIA WITH TROPHIC SKIN CHANGES. No HSM, rebound, rigidity, guarding, masses or bruits are present. Rectal exam is deferred Skin has good turgor and is free of rashes Extremities free of cyanosis clubbing edema Results Results Labs: Short CBC 11/25/21 Range/Units 11:44 WBC 15.4 H (4.8-10.8) X10*3/uL Hgb 16.2 (14.0-18.0) g/dl Hct 47.6 (42.0-52.0) % Plt Count 184 (160-400) X10*3/uL BMP 11/25/21 11:44 Sodium 136 Potassium 4.9 Chloride 102 Carbon Dioxide 22 BUN 14 Creatinine 0.71 Calcium 8.6 Liver Function 11/25/21 Range/Units 11:44 Total Bilirubin 0.5 (0.0-1.0) mg/dL AST 20 D (5-37) U/L ALT 23 (0-40) U/L Alkaline Phosphatase 61 (39-117) U/L Albumin 4.0 (3.5-5.0) g/dL Urine 11/25/21 Range/Units 16:05 Urine Color Yellow Urine Appearance Clear Urine pH 5.5 (5.0-8.0) Ur Specific [place] >= 1.030 H (1.005-1.025) Urine Protein 30 (1+) H (Neg-Trace) mg/dL Urine Glucose (UA) Negative (Negative) mg/dL Abdomen CT scan report/results: report reviewed and image reviewed CT scan - pelvis: report reviewed and image reviewed Assessment and Plan (1) Incarcerated umbilical hernia: Status: Acute (2) Bowel obstruction: Status: Acute (3) Type 2 diabetes mellitus with morbid obesity: Status: Acute (4) Poorly controlled type 2 diabetes mellitus: Status: Acute (5) Hypertension: Status: Acute (6) Morbid obesity: Status: Acute Plan I have explained to the patient the risk of bowel ischemia if the hernia is not repaired emergent lay and explained the risks of surgery which include, but are not limited to bleeding, infection, hernia recurrence, the possible need for a small bowel resection and the possible need to remove his umbilicus if the skin is so thin and/attenuated that it is nonviable. I also explained additional risks from his poorly controlled diabetes and obesity which include, but are not limited to infection, DVT and other complications that could require additional procedures. The patient seemed understand and gave informed consent to proceed. Case was reviewed with Anesthesia. Patient should void his bladder questioned documents examiner, subcu heparin is ordered, SCDs are needed. The patient will need Ancef, 3 g IV and we will proceed as soon as the OR team is assembled. Quality Stroke Does the patient have a stroke diagnosis?: No VTE Prior VTE?: No VTE Risk Level:: Surgical - moderate VTE Device Contraindication: N/A - Device Ordered VTE Drug Contraindication: N/A - Med Ordered Procedures Date of Service Date of Service: 11/25/21
[2021-11-25] MEDS: Heparin Sodium,Porcine 5,000 UNIT/ML VIAL 5000 UNIT SUBCUT (17:11)
--- NOTE | 2021-11-25 17:37 | HO.ANESPROP2 ---
HPI - Anesthesia Eval Consult details Narrative: Incarcerated umbilical hernia PMFSH Active Problems Active Problems: All Active Problems (Updated 11/25/21 @ 16:47 by Dylan Graham MD) Poorly controlled type 2 diabetes mellitus (Acute) Incarcerated umbilical hernia (Acute) Bowel obstruction (Acute) Type 2 diabetes mellitus with morbid obesity (Acute) Physical exam (Acute) Right knee pain (Acute) Hypertension (Acute) Morbid obesity (Acute) Lumbosacral pain (Acute) Fall (on) (from) other stairs and steps, subsequent encounter (Acute) Lumbar and sacral spondylarthritis (Acute) Diabetes mellitus (Acute) Past Medical History Medical History Diabetes mellitus Family History Family History Father Hypertension Mother Hypertension Maternal Grandmother CAD (coronary artery disease) Maternal Grandfather Lung cancer Smoker Family history of problems with anesthesia: No Surgical History Surgical History History of surgery on arm History of Problems with Anesthesia: No Social History Social History Housing: Apartment Alcohol intake: never Patient Tobacco Use Status: Current everyday Tobacco user Tobacco use type: Cigarette Cigarettes Per Day: 10 e-Cigarette/Vaping Use: Never Used Second Hand Smoke Exposure: No Use of substances other than those prescribed or required for medical reasons: Yes Substance Use Type: Marijuana Substance Use Frequency: Daily Are you DNR?: No Advance Directives: No Advance Directives Information Provided: Yes service: No Current occupational status: employed Current occupational exposures/hazards: No Cognitive needs: No Hearing needs: No Vision needs: Yes Meds Allergies Allergy/AdvReac Type Severity Reaction Status Date / Time hepatitis B virus vaccine Allergy Severe RASH Verified 10/20/21 10:11 [Hepatitis B Virus Vaccine] Active Medications: Current Medications Heparin Sodium (Porcine) (Heparin Sodium,Porcine 5,000 Unit/Ml Vial) 5,000 unit SUBCUT Q12H LEVI Last Admin: 11/25/21 17:11 Dose: 5,000 unit Pharmacy Consult (Consult Rx Perform Med Rec) 1 each MISCELLANE ONCE PRN PRN Reason: Consult order Home Medications Medication Instructions Recorded Confirmed Last Taken Type gabapentin 300 mg capsule 600 mg PO TID 09/15/21 11/25/21 11/24/21 History metformin 500 mg tablet 1,000 mg PO BIDWM 11/25/21 11/25/21 11/24/21 History Exam Exam Date and Time: November 25, [id number] Height,Weight and Vital Signs: Height 6 ft Weight 195.045 kg Last Vital Signs Temp 98.5 F 11/25/21 17:30 Pulse 67 11/25/21 17:30 Resp 18 11/25/21 17:30 BP 140/90 H 11/25/21 17:30 Pulse Ox 96 11/25/21 17:30 O2 Del Method 11/25/21 17:30 Pertinent Lab Results Pertinent Lab Results: Laboratory Tests 11/25/21 11/25/21 11/25/21 11:44 11:44 11:44 WBC 15.4 H RBC 5.56 Hgb 16.2 Hct 47.6 MCV 85.6 MCH 29.1 MCHC 34.0 RDW 13.2 Plt Count 184 MPV 11.5 Immature Gran % (Auto) 0.5 H Neut % (Auto) 81.2 H Lymph % (Auto) 10.9 L [place] % (Auto) 6.0 Eos % (Auto) 0.9 Baso % (Auto) 0.5 Lymph # (Auto) 1.7 [place] # (Auto) 0.9 Eos # (Auto) 0.1 Baso # (Auto) 0.1 Abs Immat Gran (auto) 0.07 H Absolute Neuts (auto) 12.5 H Absolute Nucleated RBC 0.000 Nucleated RBC % (auto) 0.0 PT 10.8 INR 0.9 APTT 31.9 Sodium 136 Potassium 4.9 Chloride 102 Carbon Dioxide 22 Anion Gap 17 BUN 14 Creatinine 0.71 Estim Creat Clear Calc 238.8 Estimated GFR > 60 Random Glucose 205 H Lactic Acid Calcium 8.6 Total Bilirubin 0.5 AST 20 D ALT 23 Alkaline Phosphatase 61 Total Protein 6.6 Albumin 4.0 Lipase 35 Urine Color Urine Appearance Urine pH Ur Specific [place] Urine Protein Urine Glucose (UA) Urine Ketones Urine Blood Urine Nitrite Ur Leukocyte Esterase Urine RBC Urine WBC Ur Squamous Epith Cells Urine Bacteria Hyaline Casts COVID-19 (RAMESH) COVID-19 Clin Com 11/25/21 11/25/21 11/25/21 11:44 11:44 16:05 WBC RBC Hgb Hct MCV MCH MCHC RDW Plt Count MPV Immature Gran % (Auto) Neut % (Auto) Lymph % (Auto) [place] % (Auto) Eos % (Auto) Baso % (Auto) Lymph # (Auto) [place] # (Auto) Eos # (Auto) Baso # (Auto) Abs Immat Gran (auto) Absolute Neuts (auto) Absolute Nucleated RBC Nucleated RBC % (auto) PT INR APTT Sodium Potassium Chloride Carbon Dioxide Anion Gap BUN Creatinine Estim Creat Clear Calc Estimated GFR Random Glucose Lactic Acid 1.7 Calcium Total Bilirubin AST ALT Alkaline Phosphatase Total Protein Albumin Lipase Urine Color Yellow Urine Appearance Clear Urine pH 5.5 Ur Specific [place] >= 1.030 H Urine Protein 30 (1+) H Urine Glucose (UA) Negative Urine Ketones Trace Urine Blood Negative Urine Nitrite Negative Ur Leukocyte Esterase Negative Urine RBC >20 H Urine WBC 0-5 Ur Squamous Epith Cells 3-5 Urine Bacteria None Seen Hyaline Casts 0-2 COVID-19 (RAMESH) Negative COVID-19 Clin Com See Note Airway Mallampati Class: II TM Dist: >3cm Neck ROM: Full Heart: RRR Lungs: CTA Assessment and Plan Assessment Anesthesia Assessment: Anesthesia Plan Discussed, Smoking Cess. Discussed and Chart Reviewed Final Anesthetic Review Family History of Problems with Anesthesia: No History of Problems with Anesthesia: No NPO: Yes ASA Class: III and Emergency Final Preanesthetic Review: No Changes in Pt Med Stat, Meds/Allgs Chart Reviewed, Consent Obtained/Reviewed and Anes Risks/Benef Reviewed Patient Risk: High Procedure Risk: Intermediate Anesthetic Plan Anesthetic Plan: GA Disposition: Standard PACU
--- NOTE | 2021-11-25 20:59 | P.OP_ITS ---
Operative Note Operative Note Date of Service: 11/25/21 Narrative: Preop diagnosis: [Incarcerated, obstructing umbilical hernia containing small bowel] Postop diagnosis: [Same] Procedure: [Open umbilical hernia repair and partial omentectomy] Surgeon: Dylan Graham MD Assist: [None] Anesthesia: [General endotracheal; ropivacaine 0.5% as local] Estimated blood loss: [100cc] Specimen: [1. Hernia sac; 2. Portion of omentum] Intraoperative findings: [Viable small bowel that was edematous was found in the incarcerated hernia. 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 Today, it became exquisitely painful and was associated with severe nausea so he presented to the emergency room where he was noted to have a very tender hernia with trophic skin changes to the abdomen, severe pain, a leukocytosis to [address] demonstrating edematous bowel. While the patient was high risk, I recommended proceeding with hernia repair, possible small-bowel resection, possible umbilectomy and possible mesh repair. We discussed the options of laparoscopic and open ventral/umbilical hernia repair versus the option of continued observation or 2nd opinion. The patient's questions seemed to be satisfactorily answered. Activity restrictions, specifically the patient cannot lift more than 20 lb for the next 4 weeks, the need for light duty, the fact that the patient is not disabled and can perform light duty was all discussed and apparently understood. The inherent risks to hernia repair including bleeding, infection, bowel injury, risk of general anesthesia, seroma, and her marianne recurrence, especially in the setting of increasing weight gain/obesity were all discussed at length in the patient's questions seemed to be answered. The possible need for seroma drainage or reoperation in the event of a complication such as mesh infection, bleeding/hematoma or symptomatic/infected seroma were also reviewed. Given the patient's risk factors of morbid obesity with active weight gain, nicotine use and poorly controlled type 2 diabetes I explained to him that I would perform the least risky operation and he would have an increased risk of hernia recurrence which would be best addressed with better control of his diabetes, nicotine cessation and weight reduction. The patient seemed understand his options, declined a 2nd opinion or transfer and wished to proceed] Procedure: [The patient was identified in the preoperative holding area and PACU in again in the operating room. He voided his bladder rn concurrent review, sequential compression stockings were in place, he received heparin, 5000 units subcu and Ancef, 3 g. He was placed supine on the table with bony prominences padded, induced in general endotracheal anesthesia administered with excellent effect. Abdominal hair was clipped. An appropriate time-out was performed and his abdomen widely prepped and draped in the usual manner for surgery using chlorhexidine. A curvilinear infraumbilical incision was made and carried through to the subcutaneous tissues using electrocautery for hemostasis. The hernia was readily apparent and circumferentially dissected which was difficult due to multiple smaller hernia pocket off shoots off of the main hernia defect through the umbilical ring. An adhesive band across the center of the umbilicus the superior aspect which contained viable omentum that was inc arcerated into many small hernias that were off of the main defect. In the inferior aspect of the hernia, approximately 24-26 cm of viable but edematous small bowel was present and carefully dissected and reduced. Next, the hernia sac was circumferentially excised and sent for permanent section. Dissection of the omentum was slowly is noted given the multiple, 8 or more smaller pockets on the lateral aspect of the hernia sac. When I examined the omentum, it had a month eaten in appearance with numerous holes that were impossible to repair primarily, so an omentectomy was performed using the LigaSure. After ensuring good hemostasis, the hernia contents were completely reduced and a transverse primary closure using interrupted 1 polypropylene suture was performed. Given the patient's poorly controlled diabetes and cigarette smoking which could cause mesh complications, I elected on primary repair with a plan to address a laparoscopic repair with mesh after the patient addresses comorbidities that can be better optimized. The area was infiltrated with local that inspected for hemostasis again. The dermis of the umbilicus was tacked down to the repair, skin approximated with 3-0 Polysorb sutures and the skin closed with liliya. The abdomen was then washed and dried and dressed with 4x4s and an ABD followed by Medipore tape.] The patient tolerated the procedure well and was sent extubated the recovery in stable condition, all sponge instrument counts were correct x2
[2021-11-25 21:31] LABS: Glucose, Whole Blood 147 mg/dL (60-115)
[2021-11-25] MEDS: Enalapril Maleate 10 MG TABLET 20 MG PO (22:24)
[2021-11-25] MEDS: Gabapentin 300 MG CAPSULE 600 MG PO (22:24)
[2021-11-25] MEDS: Lactated Ringers 1,000 ML 125 ML IVCONT (22:26)
[2021-11-25] MEDS: diphenhydrAMINE HCL 50 MG/ML VIAL 25 MG IVPUSH (23:11)
[2021-11-25] MEDS: 0.9 % Sodium Chloride Flush 3 ML SYRINGE IVFLUSH (23:20)
[2021-11-26 04:00] VITALS: BP 129/55; PULSE 78; RESP 18; TEMP 36.3; O2SAT 96
[2021-11-26] MEDS: Ibuprofen 800 MG TABLET PO (05:29)
[2021-11-26] MEDS: Lactated Ringers 1,000 ML 125 ML IVCONT ×2 (05:29→08:03)
[2021-11-26] MEDS: Heparin Sodium,Porcine 5,000 UNIT/ML VIAL 5000 UNIT SUBCUT (05:29)
[2021-11-26 06:10] VITALS: BMI 182.4
[2021-11-26 07:33] VITALS: BP 136/75; PULSE 73; RESP 17; TEMP 36.2; O2SAT 96
[2021-11-26 07:36] LABS: Glucose, Whole Blood 135 mg/dL (60-115)
[2021-11-26 07:44] LABS: Glucose, Whole Blood 154 mg/dL (60-115)
[2021-11-26] MEDS: Enalapril Maleate 10 MG TABLET 20 MG PO (08:04)
[2021-11-26] MEDS: Gabapentin 300 MG CAPSULE 600 MG PO ×2 (08:04→15:18)
--- NOTE | 2021-11-26 08:15 | PM.PNGS ---
Subjective Subjective Date of Service: 11/26/21 Patient reports: feels better Interval history: The patient reports incisional pain and denies any flatus. He otherwise denies any chest pain, difficulty breathing or shortness of breath. He reports adequate pain control at this time. Physical Exam Vital Signs: Vital Signs: Last Vital Signs Temp 97.1 F 11/26/21 07:33 Pulse 73 11/26/21 07:33 Resp 17 11/26/21 07:33 BP 136/75 11/26/21 07:33 Pulse Ox 96 11/26/21 07:33 O2 Del Method 11/26/21 07:33 O2 Flow Rate 2.0 11/25/21 22:19 BMI result Body Mass Index 182.4 Dressing is clean, dry and intact Appropriate incisional tenderness is present Objective Data Active Medications Albuterol Sulfate (Albuterol Sulfate (0.083%) 2.5 Mg/3 Ml Vial.Neb) 2.5 mg INHALE ONCE PRN PRN Reason: Wheezing Enalapril Maleate (Enalapril Maleate 10 Mg Tablet) 20 mg PO BID [facility]; Protocol Last Admin: 11/26/21 08:04 Dose: 20 mg Documented By: ROD Fentanyl (Fentanyl Citrate/Pf 100 Mcg/2 Ml Vial) 50 mcg IVPUSH Q5M PRN; Protocol PRN Reason: Pain, Severe (Pain Scale 7-10) Gabapentin (Gabapentin 300 Mg Capsule) 600 mg PO TID [facility] Last Admin: 11/26/21 08:04 Dose: 600 mg Documented By: ROD Heparin Sodium (Porcine) (Heparin Sodium,Porcine 5,000 Unit/Ml Vial) 5,000 unit SUBCUT Q12H [facility] Last Admin: 11/26/21 05:29 Dose: 5,000 unit Documented By: KELLEY Hydromorphone HCl (Hydromorphone Hcl 0.5 Mg/0.5 Ml Syringe) 0.5 mg IVPUSH Q5M PRN; Protocol PRN Reason: Pain, Severe (Pain Scale 7-10) Hydromorphone HCl (Hydromorphone Hcl 0.5 Mg/0.5 Ml Syringe) 0.5 mg IVPUSH Q2H PRN; Protocol PRN Reason: Pain, Moderate (Pain Scale 4-6 Lactated Ringer's (Lr) 1,000 mls @ 125 mls/hr IVCONT .Q8H [facility] Last Admin: 11/26/21 08:03 Dose: 125 mls/hr Documented By: ROD [facility] 1,000 mg in 100 mls @ 400 mls/hr IV Q6H [facility] Stop: 11/26/21 20:14 Last Admin: 11/26/21 08:03 Dose: 400 mls/hr Documented By: ROD Ibuprofen (Ibuprofen 800 Mg Tablet) 800 mg PO Q8H PRN PRN Reason: Pain, Mild (Pain Scale 1-3) Last Admin: 11/26/21 05:29 Dose: 800 mg Documented By: KELLEY Ondansetron HCl (Ondansetron Hcl 4 Mg/2 Ml Vial) 4 mg IVPUSH Q6H PRN PRN Reason: Nausea and Vomiting Last Admin: 11/25/21 20:58 Dose: 4 mg Documented By: LENI Pharmacy Consult (Consult Rx Perform Med Rec) 1 each MISCELLANE ONCE PRN PRN Reason: Consult order Sodium Chloride (0.9 % Sodium Chloride Flush 3 Ml Syringe) 3 ml IVFLUSH QSHIFT [facility] Last Admin: 11/26/21 08:04 Dose: Not Given Documented By: ROD Non-Admin Reason: IV Running Labs CBC & Chem 7: 11/25/21 11:44 11/25/21 11:44 Labs: Laboratory Results - last 24 hr 11/25/21 11/25/21 11/25/21 11:44 11:44 11:44 MCV 85.6 MCH 29.1 MCHC 34.0 RDW 13.2 Plt Count 184 MPV 11.5 Immature Gran % (Auto) 0.5 H Neut % (Auto) 81.2 H Lymph % (Auto) 10.9 L [place] % (Auto) 6.0 Eos % (Auto) 0.9 Baso % (Auto) 0.5 Lymph # (Auto) 1.7 [place] # (Auto) 0.9 Eos # (Auto) 0.1 Baso # (Auto) 0.1 Abs Immat Gran (auto) 0.07 H Absolute Neuts (auto) 12.5 H Absolute Nucleated RBC 0.000 Nucleated RBC % (auto) 0.0 PT 10.8 INR 0.9 APTT 31.9 Anion Gap 17 Estim Creat Clear Calc 238.8 Estimated GFR > 60 POC Glucose Random Glucose 205 H Lactic Acid Calcium 8.6 Total Bilirubin 0.5 AST 20 D ALT 23 Alkaline Phosphatase 61 Total Protein 6.6 Albumin 4.0 Lipase 35 Urine Color Urine Appearance Urine pH Ur Specific [place] Urine Protein Urine Glucose (UA) Urine Ketones Urine Blood Urine Nitrite Ur Leukocyte Esterase Urine RBC Urine WBC Ur Squamous Epith Cells Urine Bacteria Hyaline Casts COVID-19 (RAMESH) COVID-19 Clin Com 11/25/21 11/25/21 11/25/21 11:44 11:44 16:05 MCV MCH MCHC RDW Plt Count MPV Immature Gran % (Auto) Neut % (Auto) Lymph % (Auto) [place] % (Auto) Eos % (Auto) Baso % (Auto) Lymph # (Auto) [place] # (Auto) Eos # (Auto) Baso # (Auto) Abs Immat Gran (auto) Absolute Neuts (auto) Absolute Nucleated RBC Nucleated RBC % (auto) PT INR APTT Anion Gap Estim Creat Clear Calc Estimated GFR POC Glucose Random Glucose Lactic Acid 1.7 Calcium Total Bilirubin AST ALT Alkaline Phosphatase Total Protein Albumin Lipase Urine Color Yellow Urine Appearance Clear Urine pH 5.5 Ur Specific [place] >= 1.030 H Urine Protein 30 (1+) H Urine Glucose (UA) Negative Urine Ketones Trace Urine Blood Negative Urine Nitrite Negative Ur Leukocyte Esterase Negative Urine RBC >20 H Urine WBC 0-5 Ur Squamous Epith Cells 3-5 Urine Bacteria None Seen Hyaline Casts 0-2 COVID-19 (RAMESH) Negative COVID-19 Clin Com See Note 11/25/21 11/25/21 11/26/21 17:31 20:40 07:36 MCV MCH MCHC RDW Plt Count MPV Immature Gran % (Auto) Neut % (Auto) Lymph % (Auto) [place] % (Auto) Eos % (Auto) Baso % (Auto) Lymph # (Auto) [place] # (Auto) Eos # (Auto) Baso # (Auto) Abs Immat Gran (auto) Absolute Neuts (auto) Absolute Nucleated RBC Nucleated RBC % (auto) PT INR APTT Anion Gap Estim Creat Clear Calc Estimated GFR POC Glucose 135 H 147 H 154 H Random Glucose Lactic Acid Calcium Total Bilirubin AST ALT Alkaline Phosphatase Total Protein Albumin Lipase Urine Color Urine Appearance Urine pH Ur Specific [place] Urine Protein Urine Glucose (UA) Urine Ketones Urine Blood Urine Nitrite Ur Leukocyte Esterase Urine RBC Urine WBC Ur Squamous Epith Cells Urine Bacteria Hyaline Casts COVID-19 (RAMESH) COVID-19 Clin Com Procedures Date of Service Date of Service: 11/26/21 Progress Note: A&P Assessment and plan (1) Incarcerated umbilical hernia: Status: Acute (2) History of repair of hiatal hernia: Status: Acute (3) Morbid obesity: Status: Acute (4) Hypertension: Status: Acute (5) Type 2 diabetes mellitus with morbid obesity: Status: Acute (6) Bowel obstruction: Status: Acute (7) Poorly controlled type 2 diabetes mellitus: Status: Acute Plan Start clear liquids Will reassess later today for possible discharge if tolerating liquids and having flatus. The patient's small bowel was rather edematous and if there isn't signs of flatus/bowel activity, may need to keep him overnight. Time Spent With Patient Time: Total time spent is greater than 50% in coordination of care (as documented) at patient's floor/unit and/or counseling patient: Quality Stroke Does the patient have a stroke diagnosis?: No VTE Prior VTE?: No VTE Risk Level:: Surgical - moderate VTE Device Contraindication: N/A - Device Ordered VTE Drug Contraindication: N/A - Med Ordered
[2021-11-26 09:11] VITALS: BMI 58.3
--- NOTE | 2021-11-26 10:17 | MHC.CM.PN ---
PATIENT LIVES WITH SIGNIFICANT OTHER. HE HAS NO DME OR VNA SERVICES IN THE HOME HE HAS HAD COVID-19 X 2 AND VAX X 2 . IMPORTANCE OF HCP DOCUMENTATION DISCUSSED AND PATIENT DECLINES ASSIGNING ANY PERSON AT THIS TIME. HE DOES HAVE TRANSPORT HOME [place], WHICH HE HOPES IS SOON. CASE MANAGEMENT FOLLOWING FOR ANY DC NEEDS.
[2021-11-26 11:13] VITALS: BP 129/79; PULSE 78; RESP 18; TEMP 36; O2SAT 98
[2021-11-26 11:49] LABS: Glucose, Whole Blood 182 mg/dL (60-115)
--- NOTE | 2021-11-26 12:08 | P.CONHOSP_ITS ---
History of Present Illness Data of Consult Service Date: 11/26/21 Primary Care Provider: Vic Garcia MD HPI 41 year old male with DM on metformin, HTN controlled on vasotec, morbid obesity admitted throught ED on 11/25 with adominal pain and underwent emergent open umbilical hernia repair. Patient is been seen Post op for medical management. He has no acute medical issues at the present time. Has little soreness in abdomen. Tolerating liquid diet Review of Systems Review of Systems: Gen: no fever Resp: no sob, no cough CV: no chest, no ROMERO, no leg edema GI: No n/v, no abd pain Neuro: No confusion Yes all other systems are reviewed and are negative [facility] Medical History Diabetes mellitus Sleep apnea Family History Father Hypertension Mother Hypertension Maternal Grandmother CAD (coronary artery disease) Maternal Grandfather Lung cancer Smoker Surgical History History of surgery on arm Social History Household Members: Spouse Housing: Apartment Alcohol intake: never Patient Tobacco Use Status: Current everyday Tobacco user Tobacco use type: Cigarette Cigarette Packs Per Day: 1 Cigarettes Per Day: 20.0 Smoked in Last 30 Days: No e-Cigarette/Vaping Use: Never Used Patient Interested in Nicotine Replacement: No Patient Given Instructions on How to Stop Smoking: No Second Hand Smoke Exposure: No Use of substances other than those prescribed or required for medical reasons: Yes Substance Use Type: Marijuana Substance Use Frequency: Daily Last Used Substance: Just Prior to Admission Currently Displaying Signs/Symptoms of Drug Intoxication Withdrawal: No Any prior treatment program specific to substance use: No Have you been hit, kicked, punched, or otherwise hurt by someone within the past year? If so, by whom?: No Do you feel safe in your current relationship?: No Is there a partner from a previous relationship who is making you feel unsafe now?: No Are you made to feel afraid or neglected: No Are you DNR?: No Advance Directives: No Advance Directives Information Provided: Yes Do you have thoughts of harming others: None Do you have a plan to hurt others: No Plan Recently lost weight without trying: No How much weight loss: Not applicable Eating poorly because of decreased appetite: No Nutrition screen score: 0 Nutrition Risks: No Nutritional Risk and Dental problems Poor oral hygiene: No service: No Current occupational status: employed Current occupational exposures/hazards: No Cognitive needs: No Hearing needs: No Vision needs: Yes Meds Allergies Allergy/AdvReac Type Severity Reaction Status Date / Time hepatitis B virus vaccine Allergy Severe RASH Verified 10/20/21 10:11 [Hepatitis B Virus Vaccine] Active Medications: Current Medications Albuterol Sulfate (Albuterol Sulfate (0.083%) 2.5 Mg/3 Ml Vial.Neb) 2.5 mg INHALE ONCE PRN PRN Reason: Wheezing Enalapril Maleate (Enalapril Maleate 10 Mg Tablet) 20 mg PO BID [facility]; Protocol Last Admin: 11/26/21 08:04 Dose: 20 mg Fentanyl (Fentanyl Citrate/Pf 100 Mcg/2 Ml Vial) 50 mcg IVPUSH Q5M PRN; Protocol PRN Reason: Pain, Severe (Pain Scale 7-10) Gabapentin (Gabapentin 300 Mg Capsule) 600 mg PO TID [facility] Last Admin: 11/26/21 08:04 Dose: 600 mg Heparin Sodium (Porcine) (Heparin Sodium,Porcine 5,000 Unit/Ml Vial) 5,000 unit SUBCUT Q12H [facility] Last Admin: 11/26/21 05:29 Dose: 5,000 unit Hydromorphone HCl (Hydromorphone Hcl 0.5 Mg/0.5 Ml Syringe) 0.5 mg IVPUSH Q5M PRN; Protocol PRN Reason: Pain, Severe (Pain Scale 7-10) Hydromorphone HCl (Hydromorphone Hcl 0.5 Mg/0.5 Ml Syringe) 0.5 mg IVPUSH Q2H PRN; Protocol PRN Reason: Pain, Moderate (Pain Scale 4-6 Lactated Ringer's (Lr) 1,000 mls @ 125 mls/hr IVCONT .Q8H [facility] Last Admin: 11/26/21 08:03 Dose: 125 mls/hr Acetaminophen (Ofirmev) 1,000 mg in 100 mls @ 400 mls/hr IV Q6H [facility] Stop: 11/26/21 20:14 Last Infusion: 11/26/21 08:53 Dose: Infused Ibuprofen (Ibuprofen 800 Mg Tablet) 800 mg PO Q8H PRN PRN Reason: Pain, Mild (Pain Scale 1-3) Last Admin: 11/26/21 05:29 Dose: 800 mg Ondansetron HCl (Ondansetron Hcl 4 Mg/2 Ml Vial) 4 mg IVPUSH Q6H PRN PRN Reason: Nausea and Vomiting Last Admin: 11/25/21 20:58 Dose: 4 mg Pharmacy Consult (Consult Rx Perform Med Rec) 1 each MISCELLANE ONCE PRN PRN Reason: Consult order Sodium Chloride (0.9 % Sodium Chloride Flush 3 Ml Syringe) 3 ml IVFLUSH QSHIFT [facility] Last Admin: 11/26/21 08:04 Dose: Not Given Home Medications Medication Instructions Recorded Confirmed Last Taken Type gabapentin 300 mg capsule 600 mg PO TID 09/15/21 11/25/21 11/24/21 History metformin 500 mg tablet 1,000 mg PO BIDWM 11/25/21 11/25/21 11/24/21 History Physical Exam Vital Signs and Narrative: Vital Signs: Last Vital Signs Temp 96.8 F 11/26/21 11:13 Pulse 78 11/26/21 11:13 Resp 18 11/26/21 11:13 BP 129/79 11/26/21 11:13 Pulse Ox 98 11/26/21 11:13 O2 Del Method 11/26/21 11:13 O2 Flow Rate 2.0 11/25/21 22:19 BMI result Body Mass Index 58.3 Const: Other: General: AO X 3, no acute distress Resp: CTA bilateral CVS: S1,S2,RRR GI: +BS, NT, no distention Skin: No rash Neuro: motor grossly intact Psych: appropriate affect Results Labs CBC and Chem 7: 11/25/21 11:44 11/25/21 11:44 Labs: Laboratory Results - last 24 hr 11/25/21 11/25/21 11/25/21 11:44 11:44 16:05 Anion Gap 17 Estim Creat Clear Calc 238.8 Estimated GFR > 60 POC Glucose Random Glucose 205 H Calcium 8.6 Total Bilirubin 0.5 AST 20 D ALT 23 Alkaline Phosphatase 61 Total Protein 6.6 Albumin 4.0 Lipase 35 Urine Color Yellow Urine Appearance Clear Urine pH 5.5 Ur Specific [place] >= 1.030 H Urine Protein 30 (1+) H Urine Glucose (UA) Negative Urine Ketones Trace Urine Blood Negative Urine Nitrite Negative Ur Leukocyte Esterase Negative Urine RBC >20 H Urine WBC 0-5 Ur Squamous Epith Cells 3-5 Urine Bacteria None Seen Hyaline Casts 0-2 COVID-19 (RAMESH) Negative COVID-19 Clin Com See Note 11/25/21 11/25/21 11/26/21 17:31 20:40 07:36 Anion Gap Estim Creat Clear Calc Estimated GFR POC Glucose 135 H 147 H 154 H Random Glucose Calcium Total Bilirubin AST ALT Alkaline Phosphatase Total Protein Albumin Lipase Urine Color Urine Appearance Urine pH Ur Specific [place] Urine Protein Urine Glucose (UA) Urine Ketones Urine Blood Urine Nitrite Ur Leukocyte Esterase Urine RBC Urine WBC Ur Squamous Epith Cells Urine Bacteria Hyaline Casts COVID-19 (RAMESH) COVID-19 Clin Com 11/26/21 11:43 Anion Gap Estim Creat Clear Calc Estimated GFR POC Glucose 182 H Random Glucose Calcium Total Bilirubin AST ALT Alkaline Phosphatase Total Protein Albumin Lipase Urine Color Urine Appearance Urine pH Ur Specific [place] Urine Protein Urine Glucose (UA) Urine Ketones Urine Blood Urine Nitrite Ur Leukocyte Esterase Urine RBC Urine WBC Ur Squamous Epith Cells Urine Bacteria Hyaline Casts COVID-19 (RAMESH) COVID-19 Clin Com Imaging Radiologist's Impressions: Impressions Abdomen/Pelvis CT 11/25/21 13:44 IMPRESSION: 1. Abnormal study showing evidence of large umbilical hernia containing small bowel loops and mesentery, complicated by superimposed obstruction. The findings are suspicious for possible incarceration. Clinical correlation is recommended. No evidence of any pneumatosis or free intraperitoneal air or evidence of portal mesenteric venous gas. 2. Diffuse hepatic steatosis. Fleischner guidelines were followed. Assessment and Plan (1) Hypertension: Status: Acute (2) Morbid obesity: Status: Acute Plan 41/ m with DM , hTN, morbid obesity s/p emergent open repair of umbilical inca rcerated hernia.. 1/ HTN--continue Vasotec 20 bid 2/ Diabetes--on metformin at home, hold until eating regular diet. For now SSI 3/ Morbid obesity affect overall health... Weight loss advised 4/ chronic back pain,.. Neurontin Need for inpatient: Defer to Surgery
--- NOTE | 2021-11-26 15:00 | PM.DS ---
DS: Providers Provider Date of Service: 11/26/21 Date of admission: 11/25/21 17:35 Primary care physician: Vic Garcia MD Consults: 11/25/21 16:32 Consult to General Surgery Stat Consulting Provider: Dylan Graham Reason for consultation: Incarcerated hernia 11/25/21 16:33 Consult to Hospitalist Stat Consulting Provider: Hospitalist Reason For Exam: medical madagement, diabetes, HTN DS: Diagnosis Discharge Diagnosis (1) Hypertension: Status: Acute (2) Morbid obesity: Status: Acute DS: Summary Hospital Course Hospital Course: The patient is a 41-year-old gentleman with morbid obesity presenting with a BMI of 58.3, weight of 430 lb, poorly controlled type 2 diabetes with a hemoglobin A1c of 9.0, nicotine use admitting to a pack-a-day smoking, back injury and chronic pain, who had a chronically incarcerated umbilical hernia the worsened and presented to the emergency department on 11/25/2021. CT demonstrated edematous bowel and omentum. Following volume resuscitation, urgent surgery was recommended. The inherent risks and the patient's increased risks because of his comorbidities were discussed with the patient. The possible need for a 2nd operation if his hernia recurs was also discussed. He underwent a primary fascial closure with reduction of a edematous but viable small bowel and partial omentectomy. In the PACU, the patient had some depressed O2 sats requiring oxygen which is suggestive of obstructive sleep apnea. Recommendation to follow-up with his PCP regarding his diabetes, nicotine cessation and a sleep study were made. Postoperatively, the patient was admitted for bowel rest and IV hydration. By postop day 1, he was tolerating clear liquids and had a bowel movement. His pain was controlled enough for him to be discharged. Overall condition at time discharge is improved. Time Spent with Patient Time attestation: Total time spent providing and/or coordinating discharge services: Discharge coordination time: Less than 30 minutes Quality: Safe Use of Opioids Does Pt have an Active Cancer Diagnosis on the Problem List?: No Quality: Stroke Does the patient have a stroke diagnosis?: No Physical Exam Vital Signs: Vital Signs: Last Vital Signs Temp 96.8 F 11/26/21 11:13 Pulse 78 11/26/21 11:13 Resp 18 11/26/21 11:13 BP 129/79 11/26/21 11:13 Pulse Ox 98 11/26/21 11:13 O2 Del Method 11/26/21 11:13 O2 Flow Rate 2.0 11/25/21 22:19 BMI result Body Mass Index 58.3 DS: Data Data Completed and Pending Pending studies at discharge: Pending at discharge 11/25/21 20:03 Surgical [PTH] Routine Labs on day of discharge: Laboratory Results - last 24 hr 11/25/21 11/25/21 11/25/21 16:05 17:31 20:40 POC Glucose 135 H 147 H Urine Color Yellow Urine Appearance Clear Urine pH 5.5 Ur Specific [place] >= 1.030 H Urine Protein 30 (1+) H Urine Glucose (UA) Negative Urine Ketones Trace Urine Blood Negative Urine Nitrite Negative Ur Leukocyte Esterase Negative Urine RBC >20 H Urine WBC 0-5 Ur Squamous Epith Cells 3-5 Urine Bacteria None Seen Hyaline Casts 0-2 11/26/21 11/26/21 07:36 11:43 POC Glucose 154 H 182 H Urine Color Urine Appearance Urine pH Ur Specific [place] Urine Protein Urine Glucose (UA) Urine Ketones Urine Blood Urine Nitrite Ur Leukocyte Esterase Urine RBC Urine WBC Ur Squamous Epith Cells Urine Bacteria Hyaline Casts Discharge Plan Discharge Patient Disposition: Home, Self-Care Discharge Diagnosis: Incarcerated umbilical hernia, s/p repair 11/25/21 Referrals: Vic Garcia MD [Primary Care Provider] - 1 Week Dylan Graham MD [Physician] - 1 Week Discharge Medications: Continued enalapril maleate 20 mg tablet 20 mg PO BID Qty: 180 8RF metformin 500 mg tablet 1,000 mg PO BIDWM sildenafil [Viagra] 50 mg tablet 50 mg PO DAILY PRN (Reason: sexual activity) Qty: 20 4RF Rx Instructions: administer 30 minutes to 4 hours before activity gabapentin 300 mg capsule 600 mg PO TID ibuprofen 800 mg tablet 800 mg PO Q8H PRN (Reason: pain) Qty: 20 0RF Diet: Regular diet Activity on Discharge: No heavy lifting Stand Alone Forms: Patient Portal Discharge page Activity Restrictions/Additional Instructions: You had a hernia repair by Dr. Graham. To allow adequate healing, you must not lift more than 20 lb for the next 4 weeks. Strenuous activities such as hiking uphill, digging/gardening, swimming, yoga, weightlifting, lifting heavy bags, martial arts, yoga, sports like soccer, golf or baseball or other physical activities must be avoided to prevent healing problems and hernia recurrence. If you have questions regarding a specific activity, please ask Dr. Graham. Your dressings should be kept dry until they are removed in 48 hours after surgery. You can sponge bath until you remove the dressings to shower. You can shower on 11/28/21. Use an antibacterial soap like Dial, [place], Lever 2000 & be sure to thoroughly rinse the soap off to avoid a rash. Remove the dressing & allow soap & water to run over your incision, then pat dry with a towel. Apply dry sterile gauze if your clothing rubs/irritates your incision, and change daily, but you do not need a dressing. After 48 hours when you have removed the dressings, it is OK to shower. Do not soak in a tub or pool until your incisions are completely healed, which usually takes at least 2 to 3 weeks. You do not need to place a new bandage on your incision unless your clothing rubs on the incision and causes irritation. Call Dr. Graham's office for a f/u appointment in 10-14 days for staple removal [phone]. A high protein, high fiber low carbohydrate diet is recommended to help healing. Contact your PCP to schedule an appointment regardin) Diabetes: you hemoglobin A1c is elevated at 9.8 which puts you at risk for many infections, nerve damage & other complications regarding healing, heart and other health issues; 2) Smoking cessation: nicotine in any form (smoking, vaping, gum, or patches) constricts/tightens blood vessels causing healing problems; 3) You should have a sleep study, since you may have obstructive sleep apnea. You should resume your regular medications & can take Tylenol & ibuprofen for pain if needed. Apply an ice pack for 30-60 minutes as much as tolerated for the next week to help with pain & swelling. Expect bruising & firmness, but if your incision becomes red, swollen or drains pus, contact Dr. Graham. Care Plan Goals: Healthy diet, nicotine cessation, diabetes management Health Concerns: poorly controlled diabetes, obesity, possible sleep apnea, nicotine use Plan of Treatment: healthy diet, nicotine cessation, f/u with PCP re: diabetes, smoking, medical weight loss Assessment: s/p open umbilical hernia repair 11/25/21 poorly controlled type 2 DM likely JAYLAN morbid obesity
[2021-11-26] MEDS: Magnesium Hydrox/Alum Hydrox 30 ML ORAL.SUSP PO (15:17)
[2021-11-26] MEDS: Docusate Sodium 100 MG CAPSULE 200 MG PO (15:18)
[2021-11-26 15:46] LABS: Glucose, Whole Blood 177 mg/dL (60-115)
[2021-11-26 15:51] VITALS: BP 144/71; PULSE 78; RESP 18; TEMP 36.5; O2SAT 97
--- NOTE | 2021-11-26 16:07 | HO.POSTANES ---
Post Anesthesia Evaluation Post Anesthesia Evaluation Vital Signs: Vital Signs Temp Pulse Resp BP Pulse Ox O2 Del Method O2 Flow Rate 11/26/21 15:51 97.7 F 78 18 144/71 H 97 Nasal Cannula 2.0 11/26/21 11:13 96.8 F 78 18 129/79 98 Room Air 11/26/21 07:33 97.1 F 73 17 136/75 96 Room Air Anesthesia: General Endotracheal-GETA Mental Status: Awake Pain Control: Satisfactory Nausea/Vomiting: None Hydration: Adequate Anesthesia-Related Issues: No Anes. Related Issues
== END 2021-11-26 18:49 | disposition home or self-care (01) | DRG 227 ==
LOC: HO.ED 17:14 → HO.SSS 17:55 → HO.SSSA 18:11 → HO.S3 18:12
PROVIDERS: Admitting Provider Surgery; Emergency Provider Emergency Medicine Emergency Medical Services; PCP Internal Medicine; Visit Provider Surgery
DX: K42.0 Umbilical hernia with obstruction, without gangrene (principal); E11.65 Type 2 diabetes mellitus with hyperglycemia; I10 Essential (primary) hypertension; E66.01 Morbid (severe) obesity due to excess calories; G47.30 Sleep apnea, unspecified; Z68.43 Body mass index [BMI] 50.0-59.9, adult; G89.29 Other chronic pain; M54.9 Dorsalgia, unspecified; F17.210 Nicotine dependence, cigarettes, uncomplicated; Z20.822 Contact with and (suspected) exposure to COVID-19; Z71.6 Tobacco abuse counseling; Z79.84 Long term (current) use of oral hypoglycemic drugs; Z79.899 Other long term (current) drug therapy
CPT/HCPCS: 74177; 80053; 81001; 82947; 83605; 83690; 85025; 85610; 85730; 87635; 88302; 88304; 93005; 99285; J0131; J0330; J0690; J1170; J1200; J1790; J1885; J2250; J2405; J2550; J2795; J3010; Q9967

== ENCOUNTER 2021-12-22 09:07 | Emergency (ER) | payer BC, MEDICAID, SELFPAY ==
--- NOTE | ~2021-12-22 | CT_ITS ---
EXAMINATION: CT ABDOMEN AND PELVIS WITHOUT CONTRAST CLINICAL INFORMATION: Abdominal pain. Rule out bowel obstruction/incarcerated hernia. COMPARISON: 11/25/2021 TECHNIQUE: Multidetector volumetric imaging was performed from the superior aspect of the liver through the pubic symphysis. Sagittal and coronal reformatted images were obtained on the technologist's workstation. This CT examination was performed using dose optimization techniques as appropriate, variously including the following: *Automated exposure control *Adjustment of mA and/or kV according to patient size (this includes techniques or standardized protocols for targeted exams where dose is matched to indication/reason for exam; i.e. extremities or head) *Use of iterative reconstruction technique DLP: 1706 mGy-cm FINDINGS: The lack of intravenous contrast limits evaluation of the solid visceral organs including the liver, spleen, pancreas, and kidneys. LUNG BASES: The visualized lung bases are unremarkable. LIVER, GALLBLADDER, AND BILIARY TREE: Limited non-contrast evaluation is normal. No gross focal hepatic lesion. Normal liver size and contour. No gross biliary ductal dilation. The gallbladder is unremarkable with no evidence of radiopaque gallstones, gallbladder wall thickening, or obvious pericholecystic inflammatory changes. PANCREAS: Limited non-contrast evaluation is normal. No leodan-pancreatic fluid. SPLEEN: Limited non-contrast evaluation is normal. ADRENAL GLANDS: Normal; no adrenal mass. KIDNEYS AND URETERS: Limited non-contrast evaluation is normal. No hydronephrosis, hydroureter, or calculi seen. No perinephric stranding. GASTROINTESTINAL TRACT: Stomach and small bowel are nondilated. Normal appendix. Scattered colonic diverticulosis. No evidence of colitis or diverticulitis. ABDOMINAL WALL: Again seen is marked diastases of the rectus abdominis. Previously there was a complex multicompartment ventral hernia with evidence of obstruction. Now seen is a 16 x 12 cm transaxial by 14 cm craniocaudal fluid collection at the site of the prior hernia. Best appreciated on sagittal images, this appears to be separate from adjacent bowel loops suggesting interval hernia repair. There is overlying skin thickening and surrounding fluid and edema consistent with soft tissue infection. LYMPH NODES: No pathologically enlarged lymph nodes in the abdomen or pelvis. VASCULAR: Normal caliber abdominal aorta. BLADDER: Unremarkable. PELVIC VISCERA: Unremarkable. OSSEOUS STRUCTURES: No acute or suspicious osseous abnormalities. CT/CT abdomen pelvis wo IV con IMPRESSION: 16 x 12 x 14 cm fluid collection within the subcutaneous soft tissues at the level of the umbilicus consistent with a postoperative seroma. This could be sterile or infected (abscess). Regardless, there is overlying skin thickening with surrounding fat stranding consistent with superimposed cellulitis. Although there is persistent diastases of the rectus abdominis, the previously seen herniated small bowel is now seen within the abdomen without evidence of dilation, consistent with interval repair. The findings and recommendations were discussed with Samuel De La Torre MD by telephone at 12/22/2021 12:21 PM and it was ascertained that the content and urgency of the report was understood at the time of direct communication.
--- NOTE | ~2021-12-22 | US_ITS ---
EXAMINATION: ULTRASOUND-GUIDED DRAINAGE CLINICAL INFORMATION: Postoperative fluid collection following hernia repair COMPARISON: Previous CT of the abdomen and pelvis 12/22/2021 TECHNIQUE: Procedure and risks and benefits including bleeding and infection were discussed with the patient and informed consent was obtained. The right abdominal wall was prepped and draped in the usual sterile fashion. The skin and soft tissues were anesthetized with 1% lidocaine plain. Using ultrasound guidance, an 8.5 [place] drain was positioned in the abdominal wall fluid collection. 1.4 L of dark brown fluid was removed. Specimen was sent for Gram stain and culture. FINDINGS: There is a large complex fluid collection just deep to the skin measuring approximately 15 cm in diameter in the periumbilical region. This has some thickened septations. Dark brown fluid was aspirated suggestive of old liquefying hematoma. US/US drain soft tissue w imaging IMPRESSION: Ultrasound-guided abdominal wall drainage.
[2021-12-22 09:13] VITALS: BP 139/89; PULSE 87; RESP 26; TEMP 36.4; O2SAT 95; BMI 53.1
--- NOTE | 2021-12-22 09:49 | ED.ABDPAIN ---
HPI - Abdominal Pain General Chief Complaint: Abdominal Pain Stated Complaint: abd pain hernia surgery 3wks ago Time Seen by Provider: 12/22/21 09:34 Source: patient and EMS Mode of arrival: EMS Limitations: no limitations History of Present Illness HPI narrative: 41-year-old male came in by ambulance for evaluation of abdominal pain and recurrence of umbilical hernia. Patient had emergent surgery for incarcerated umbilical hernia by Dr. Graham 3 and half weeks ago, patient candidly has not been following activity restrictions as recommended by the surgeon because his girlfriend had an ankle fracture and he needed to help her, patient been living with lower abdominal pain taking Tylenol at home, patient with nausea but no vomiting, been having small bowel movements patient declined passing flatus, been getting hot and cold chills. Patient reportedly decreased p.o. intake because decreased appetite. Related Data Home Medications Medication Instructions Recorded Confirmed gabapentin 300 mg capsule 600 mg PO TID 09/15/21 12/18/21 metformin 500 mg tablet 1,000 mg PO BIDWM 11/25/21 12/18/21 Previous Rx's Medication Instructions Recorded enalapril maleate 20 mg tablet 20 mg PO BID #180 tabs 04/28/21 ibuprofen 800 mg tablet 800 mg PO Q8H PRN pain #20 tabs 08/27/21 sildenafil 50 mg tablet (Viagra) 50 mg PO DAILY PRN sexual activity 10/20/21 #20 tabs amoxicillin 875 mg-potassium 1 tab PO BID #20 tabs 12/22/21 clavulanate 125 mg tablet amoxicillin 875 mg-potassium 1 tab PO Q12H #14 tabs 12/22/21 clavulanate 125 mg tablet Allergies Allergy/AdvReac Type Severity Reaction Status Date / Time hepatitis B virus vaccine Allergy Severe RASH Verified 12/18/21 14:02 [Hepatitis B Virus Vaccine] Review of Systems Review of Systems All other systems are reviewed and are negative Constitutional: Reports as per HPI and Reports no additional constitutional complaints Eyes: Reports as per HPI and Reports no additional eye complaints Reports system reviewed and no additional complaints, except as documented Cardiovascular: Reports as per HPI and Reports no additional cardiovascular complaints Respiratory: Reports as per HPI and Reports no additional respiratory complaints Gastrointestinal: Reports as per HPI and Reports no additional gastrointestinal complaints Genitourinary: Reports no additional female genitourinary complaints Musculoskeletal: Reports no additional musculoskeletal complaints Skin/Breast: Reports system reviewed and no additional complaints, except as docu Psychiatric: Reports no additional psychiatric complaints Endocrine: Reports no additional endocrine complaints Hematologic/Lymphatic: Reports no additional hematologic/lymphatic complaints Allergic/Immunologic: Reports no additional allergic/immunologic complaints Reports system reviewed and no additional complaints, except as documented and Reports Abnormal speech present [facility] Past Medical History Medical History Diabetes mellitus Sleep apnea Surgical History History of surgery on arm Family History Family History Father Hypertension Mother Hypertension Maternal Grandmother CAD (coronary artery disease) Maternal Grandfather Lung cancer Smoker Social History Social History Household Members: Spouse Housing: Apartment Alcohol intake: never Patient Tobacco Use Status: Former Tobacco user Tobacco use type: Cigarette Cigarette Packs Per Day: 1 Cigarettes Per Day: 20.0 e-Cigarette/Vaping Use: Never Used Second Hand Smoke Exposure: No Use of substances other than those prescribed or required for medical reasons: No Substance Use Type: Marijuana Advance Directives: No Advance Directives Information Provided: Yes service: No Current occupational status: employed Current occupational exposures/hazards: No Cognitive needs: No Hearing needs: No Vision needs: Yes Physical Exam ED Vital Signs: Vital Signs - 24 hr 12/22/21 09:13 12/22/21 09:53 12/22/21 12:55 Temperature 97.5 F 99.1 F 99.3 F Pulse Rate 87 80 80 Respiratory Rate 26 H 26 H 22 H Blood Pressure 139/89 141/89 H 140/71 H Pulse Oximetry 95 97 100 Oxygen Delivery Method Room Air Room Air Room Air 12/22/21 13:45 12/22/21 16:00 Temperature 101.6 F H 100.5 F H Pulse Rate 74 Respiratory Rate 16 Blood Pressure 122/62 Pulse Oximetry 98 Oxygen Delivery Method Room Air BMI result Body Mass Index 53.1 Vital signs have been reviewed as appeared to be correct. Blood pressure normal. Heart rate normal. Respiration rate normal. Temperature normal. Oxygen saturation normal. Appearance: Alert. Oriented X3. No acute distress. Head: Normal external exam. Normocephalic. Atraumatic. No Suazo signs noted. No raccoon eyes noted Eyes: PERRLA. EOMI. Conjunctiva and sclera normal. Eyelids normal. ENT: TM's Normal. Pharynx normal. Uvula midline. Moist mucous membranes. No trismus noted. No drooling noted. No muffled voice noted. Neck: Normal inspection. Neck supple. FROM. No adenopathy. Thyroid Normal. No meningeal signs. No neck mass noted. CVS: Normal heart rate and rhythm. Heart sound normal. No murmurs noted. Pulses normal throughout. Respiratory: No respiratory distress. Painless inspiration. Breath sounds normal. No wheezes/rales/rhonchi noted. Chest nontender. No accessory muscle usage noted or decreased air movement noted. Abdomen: Obese, Soft, bulging midline umbilical hernia, mild tenderness but no rebound or guarding, mild redness of the skin above it, no drainage from the surgical wound.. Bowel sounds normal in all 4 quadrants. No distention noted. No organomegaly noted. No visible injury noted. Back: No CVA tenderness. Full range of motion noted. Skin: Skin warm and dry. Normal skin color. Normal skin turgor. No rashes/lesions/lacerations noted. Extremities: No lower extremity edema. Extremities exhibit normal range of motion. Extremities nontender. Neuro: Oriented X 3. Cranial nerve exam: II-XII are grossly intact No motor deficit. No sensory deficit. Reflexes normal. Course Course Course Narrative: 41-year-old male status post umbilical hernia repair with complication of wound seroma, the case was discussed with Dr. Graham, arranging for IR for drainage and patient will be discharged on Augmentin, patient do not meet criteria for sepsis or septic shock. MDM - Abdominal Pain Lab Data Attestation: I reviewed the patient's lab results. Result diagrams: 12/22/21 10:43 12/22/21 10:43 Labs: Lab Results 12/22/21 12/22/21 12/22/21 Range/Units 10:43 10:43 13:35 WBC 16.8 H (4.8-10.8) X10*3/uL RBC 4.95 (4.60-5.80) X10*6/uL Hgb 14.2 (14.0-18.0) g/dl Hct 41.7 L (42.0-52.0) % MCV 84.2 (80.0-98.0) fL MCH 28.7 (27.0-33.0) pg MCHC 34.1 (31.0-36.0) g/dl RDW 13.2 (11.0-16.0) % Plt Count 181 (160-400) X10*3/uL MPV 10.5 (9.4-12.4) fL Immature Gran % (Auto) 0.4 (0.0-0.4) % Neut % (Auto) 80.4 H (45-73) % Lymph % (Auto) 9.4 L (20-40) % [place] % (Auto) 9.5 (2-11) % Eos % (Auto) 0.1 (0-4) % Baso % (Auto) 0.2 (0-2) % Lymph # (Auto) 1.6 (1.2-4.9) X10*3/uL [place] # (Auto) 1.6 H (0.1-1.2) X10*3/uL Eos # (Auto) 0.0 (0.0-0.4) X10*3/uL Baso # (Auto) 0.0 (0.0-0.2) X10*3/uL Abs Immat Gran (auto) 0.06 H (0.00-0.03) X10*3/uL Absolute Neuts (auto) 13.5 H (2.0-8.3) x10*3/uL Absolute Nucleated RBC 0.000 (0.0-0.012) X10*3/uL Nucleated RBC % (auto) 0.0 (0.0-0.2) /100WBC Smear Tech's Comments VERIFIED PT (10.0-13.1) SEC INR (0.9-1.1) APTT (26.0-36.4) SEC Sodium 136 (135-145) mmol/L Potassium 4.0 (3.3-5.1) mmol/L Chloride 99 (96-108) mmol/L Carbon Dioxide 26 (22-29) mmol/L Anion Gap 15 (12-20) BUN 9 (9-16) mg/dL Creatinine 0.70 (0.5-1.4) mg/dL Estim Creat Clear Calc 228.8 Estimated GFR > 60 Random Glucose 178 H (60-115) mg/dL Lactic Acid 1.3 (0.5-2.0) mmol/L Calcium 8.9 (8.4-10.2) mg/dL Total Bilirubin 0.9 (0.0-1.0) mg/dL Direct Bilirubin 0.4 (0.0-0.5) mg/dL AST 11 D (5-37) U/L ALT 18 (0-40) U/L Alkaline Phosphatase 66 (39-117) U/L Total Protein 6.5 (6.5-8.0) g/dL Albumin 3.8 (3.5-5.0) g/dL Lipase 17 (8-78) U/L Urine Color Urine Appearance Urine pH (5.0-9.0) Ur Specific [place] (1.005-1.025) Urine Protein (Neg-Trace) mg/dL Urine Glucose (UA) (Negative) mg/dL Urine Ketones (Negative) mg/dL Urine Blood (Negative) Urine Nitrite (Negative) Ur Leukocyte Esterase (Negative) Urine RBC (0-2) /HPF Urine WBC (0-5) /HPF Ur Squamous Epith Cells (0-2) /HPF Urine Bacteria (None Seen) Hyaline Casts (0-2) /LPF 12/22/21 12/22/21 12/22/21 Range/Units 13:35 14:07 14:24 WBC (4.8-10.8) X10*3/uL RBC (4.60-5.80) X10*6/uL Hgb (14.0-18.0) g/dl Hct (42.0-52.0) % MCV (80.0-98.0) fL MCH (27.0-33.0) pg MCHC (31.0-36.0) g/dl RDW (11.0-16.0) % Plt Count (160-400) X10*3/uL MPV (9.4-12.4) fL Immature Gran % (Auto) (0.0-0.4) % Neut % (Auto) (45-73) % Lymph % (Auto) (20-40) % [place] % (Auto) (2-11) % Eos % (Auto) (0-4) % Baso % (Auto) (0-2) % Lymph # (Auto) (1.2-4.9) X10*3/uL [place] # (Auto) (0.1-1.2) X10*3/uL Eos # (Auto) (0.0-0.4) X10*3/uL Baso # (Auto) (0.0-0.2) X10*3/uL Abs Immat Gran (auto) (0.00-0.03) X10*3/uL Absolute Neuts (auto) (2.0-8.3) x10*3/uL Absolute Nucleated RBC (0.0-0.012) X10*3/uL Nucleated RBC % (auto) (0.0-0.2) /100WBC Smear Tech's Comments PT 14.9 H (10.0-13.1) SEC INR 1.3 H (0.9-1.1) APTT 29.5 (26.0-36.4) SEC Sodium (135-145) mmol/L Potassium (3.3-5.1) mmol/L Chloride (96-108) mmol/L Carbon Dioxide (22-29) mmol/L Anion Gap (12-20) BUN (9-16) mg/dL Creatinine (0.5-1.4) mg/dL Estim Creat Clear Calc Estimated GFR Random Glucose (60-115) mg/dL Lactic Acid 1.1 (0.5-2.0) mmol/L Calcium (8.4-10.2) mg/dL Total Bilirubin (0.0-1.0) mg/dL Direct Bilirubin (0.0-0.5) mg/dL AST (5-37) U/L ALT (0-40) U/L Alkaline Phosphatase (39-117) U/L Total Protein (6.5-8.0) g/dL Albumin (3.5-5.0) g/dL Lipase (8-78) U/L Urine Color Dark Yellow Urine Appearance Clear Urine pH 6.0 (5.0-9.0) Ur Specific [place] 1.025 (1.005-1.025) Urine Protein 30 (1+) H (Neg-Trace) mg/dL Urine Glucose (UA) Negative (Negative) mg/dL Urine Ketones 80 (Negative) mg/dL Urine Blood Negative (Negative) Urine Nitrite Negative (Negative) Ur Leukocyte Esterase Trace H (Negative) Urine RBC 0-2 (0-2) /HPF Urine WBC 0-5 (0-5) /HPF Ur Squamous Epith Cells 6-10 (0-2) /HPF Urine Bacteria Trace (None Seen) Hyaline Casts 0-2 (0-2) /LPF Imaging Data Abdomen pelvis CT: Attestation: I personally reviewed and interpreted this imaging study as follows: Radiologist's impression: 16 x 12 x 14 cm fluid collection within the subcutaneous soft tissues at the level of the umbilicus consistent with a postoperative seroma. This could be sterile or infected (abscess). Regardless, there is overlying skin thickening with surrounding fat stranding consistent with superimposed cellulitis.? ? Although there is persistent diastases of the rectus abdominis, the previously seen herniated small bowel is now seen within the abdomen without evidence of dilation, consistent with interval repair. ? The findings and recommendations were discussed with Samuel De La Torre MD by telephone at 12/22/2021 12:21 PM and it was ascertained that the content and urgency of the report was understood at the time of direct communication. Discharge Plan Discharge Clinical Impression: Post surgical complication, Postoperative seroma of skin after non-dermatologic procedure Patient Disposition: Still a Patient Instructions: Surgical Site Infections (ED) Additional Instructions: Do not shower or get the drain wet. Call Dr. Graham's office at [phone] for an appointment later this week. Prescriptions: New amoxicillin-pot clavulanate 875-125 mg tablet 1 tab PO Q12H Qty: 14 0RF amoxicillin-pot clavulanate 875-125 mg tablet 1 tab PO BID Qty: 20 0RF No Action enalapril maleate 20 mg tablet 20 mg PO BID Qty: 180 8RF metformin 500 mg tablet 1,000 mg PO BIDWM sildenafil [Viagra] 50 mg tablet 50 mg PO DAILY PRN (Reason: sexual activity) Qty: 20 4RF Rx Instructions: administer 30 minutes to 4 hours before activity gabapentin 300 mg capsule 600 mg PO TID ibuprofen 800 mg tablet 800 mg PO Q8H PRN (Reason: pain) Qty: 20 0RF Referrals: Vic Garcia MD [Primary Care Provider] - Dylan Graham MD [Physician] -
[2021-12-22 09:53] VITALS: BP 141/89; PULSE 80; RESP 26; TEMP 37.3; O2SAT 97
[2021-12-22 10:49] LABS: Basophils Percent Auto 0.2 % (0-2); Eosinophils Percent Auto 0.1 % (0-4); Hematocrit 41.7 % (42.0-52.0); Hemoglobin 14.2 g/dl (14.0-18.0); Imm Gran Abs Auto 0.06 X10*3/uL (0.00-0.03); Imm Gran Pct Auto 0.4 % (0.0-0.4); Lymphocytes Absolute Auto 1.6 X10*3/uL (1.2-4.9); Lymphocytes Percent Auto 9.4 % (20-40); MANUAL DIFF FLAG SCAN; Mean Corpuscular HGB Conc 34.1 g/dl (31.0-36.0); Mean Corpuscular Hemoglobin 28.7 pg (27.0-33.0); Mean Platelet Volume 10.5 fL (9.4-12.4); Monocytes Absolute Auto 1.6 X10*3/uL (0.1-1.2); Monocytes Percent Auto 9.5 % (2-11); Neutrophils Absolute Auto 13.5 x10*3/uL (2.0-8.3); Neutrophils Percent Auto 80.4 % (45-73); Platelet Count 181 X10*3/uL (160-400); Red Blood Count 4.95 X10*6/uL (4.60-5.80); Red Cell Distribution Width 13.2 % (11.0-16.0); SCAN SMEAR FLAG 1; White Blood Count 16.8 X10*3/uL (4.8-10.8)
[2021-12-22 10:54] LABS: Mean Corpuscular Volume 84.2 fL (80.0-98.0)
[2021-12-22 11:06] LABS: Alanine Aminotransferase 18 U/L (0-40); Albumin Level 3.8 g/dL (3.5-5.0); Alkaline Phosphatase 66 U/L (39-117); Anion Gap 15 (12-20); Aspartate Amino Transferase 11 U/L (5-37); Bilirubin Direct 0.4 mg/dL (0.0-0.5); Bilirubin Total 0.9 mg/dL (0.0-1.0); Blood Urea Nitrogen 9 mg/dL (9-16); Calcium 8.9 mg/dL (8.4-10.2); Carbon Dioxide 26 mmol/L (22-29); Chloride 99 mmol/L (96-108); Creatinine Clr Calc Pharmacy 228.8; Estimated Glomerular Filt Rate > 60; Glucose Random 178 mg/dL (60-115); Lipase 17 U/L (8-78); Sodium 136 mmol/L (135-145); Total Protein 6.5 g/dL (6.5-8.0)
[2021-12-22] MEDS: 0.9 % Sodium Chloride 1,000 ML 999 ML IV ×2 (11:16→14:29)
[2021-12-22] MEDS: Morphine Sulfate 2 MG/ML CARTRIDGE IVPUSH (11:16)
[2021-12-22] MEDS: ondansetron HCL 4 MG/2 ML VIAL IVPUSH ×2 (11:16→14:29)
[2021-12-22 11:21] LABS: SLIDE REVIEW VERIFIED
--- NOTE | 2021-12-22 11:22 | PC.NURSE ---
pt is a/o x 4 no sob/stephen noted skin pink warm abd hernia noted. lungs - cta, heart sounds - regular. abd obese, soft, n/t, bx + x 4 quads.
--- NOTE | 2021-12-22 11:25 | PC.NURSE ---
pt appears flushed (face) and sun-burn to chest area. no drainage noted from umbilical hernia.
[2021-12-22 12:55] VITALS: BP 140/71; PULSE 80; RESP 22; TEMP 37.4; O2SAT 100
[2021-12-22] MEDS: Acetaminophen 325 MG TABLET 650 MG PO (13:44)
[2021-12-22 13:45] VITALS: TEMP 38.7
--- NOTE | 2021-12-22 13:46 | PC.NURSE ---
patient a/o x4 . pearrla . lungs clear . heart rate regular at 79 . face flush , chest flush . obtained rectal temp 101.6 . obtained ordered for PRN tylenol [address] Eladia Mcfadden for fever . patient morbidly obese . abdomen severely distended in area where hernia had been repaired , mid abdomen . plan for patient to go to IR and have ultrasound guided decompression of fluid that is in abscess . patient aware of plan of care . patient is NPO and aware .
[2021-12-22 13:50] LABS: INTERNATIONAL NORM RATIO 1.3 (0.9-1.1); Prothrombin Time 14.9 SEC (10.0-13.1)
[2021-12-22 13:52] LABS: Partial Thromboplastin Time 29.5 SEC (26.0-36.4)
[2021-12-22 13:53] LABS: Lactic Acid 1.3 mmol/L (0.5-2.0)
[2021-12-22 14:14] LABS: Appearance Urine Clear; Color Urine Dark Yellow; Glucose Urine UA Negative (Negative); Leukocyte Esterase Urine Trace (Negative); Nitrite Urine Negative (Negative); Specific Gravity - Urine 1.025 (1.005-1.025); Urine Blood Negative (Negative); Urine Ketones 80 mg/dL (Negative); Urine Protein 30 (1+) mg/dL (Neg-Trace)
[2021-12-22 14:17] LABS: Bacteria Urine Trace (None Seen); Hyaline Casts Urine 0-2 /LPF (0-2); RBC Urine 0-2 /HPF (0-2); WBC Urine 0-5 /HPF (0-5)
--- NOTE | 2021-12-22 14:29 | PC.NURSE ---
rn to rn report given to erin. pt states that he had a cup and a half of water prior to arrival to er and a handful of cereal yesterday. pt aware of plan of care for hernia abscess drainage today in [facility].
[2021-12-22 14:43] LABS: Lactic Acid 1.1 mmol/L (0.5-2.0)
[2021-12-22] MEDS: Piperacillin Sodium/Tazobactam 3.375 GM in 0.9 % Sodium Chloride 50 ML IV (15:53)
[2021-12-22 16:00] VITALS: BP 122/62; PULSE 74; RESP 16; TEMP 38.1; O2SAT 98
--- NOTE | 2021-12-22 16:06 | P.PNGS_ITS ---
Subjective Subjective Date of Service: 12/22/21 Interval history: The patient noted continued worsening protrusion of his umbilicus post hernia repair and also experienced fevers and chills. In the emergency department, he is noted to have a leukocytosis and a significant seroma. Plan for drain placement with Dr. Teague was made. I have explained to the patient and to the rest of the team that he does not have a mesh given his comorbidities and that complete drainage is in order. I will manage the drain on an outpatient basis. Physical Exam Vital Signs: Vital Signs: Last Vital Signs Temp 101.6 F H 12/22/21 13:45 Pulse 80 12/22/21 12:55 Resp 22 H 12/22/21 12:55 BP 140/71 H 12/22/21 12:55 Pulse Ox 100 12/22/21 12:55 O2 Del Method 12/22/21 12:55 BMI result Body Mass Index 53.1 The patient's umbilicus is protruding with mild tenderness. There is dependence/inferior umbilical cellulitic change but no crepitance. A black eschar in the umbilicus that is dry and not draining is noted. Objective Data Labs CBC & Chem 7: 12/22/21 10:43 12/22/21 10:43 Labs: Laboratory Results - last 24 hr 12/22/21 12/22/21 12/22/21 10:43 10:43 13:35 MCV 84.2 MCH 28.7 MCHC 34.1 RDW 13.2 Plt Count 181 MPV 10.5 Immature Gran % (Auto) 0.4 Neut % (Auto) 80.4 H Lymph % (Auto) 9.4 L [place] % (Auto) 9.5 Eos % (Auto) 0.1 Baso % (Auto) 0.2 Lymph # (Auto) 1.6 [place] # (Auto) 1.6 H Eos # (Auto) 0.0 Baso # (Auto) 0.0 Abs Immat Gran (auto) 0.06 H Absolute Neuts (auto) 13.5 H Absolute Nucleated RBC 0.000 Nucleated RBC % (auto) 0.0 Smear Tech's Comments VERIFIED PT INR APTT Anion Gap 15 Estim Creat Clear Calc 228.8 Estimated GFR > 60 Random Glucose 178 H Lactic Acid 1.3 Calcium 8.9 Total Bilirubin 0.9 Direct Bilirubin 0.4 AST 11 D ALT 18 Alkaline Phosphatase 66 Total Protein 6.5 Albumin 3.8 Lipase 17 Urine Color Urine Appearance Urine pH Ur Specific [place] Urine Protein Urine Glucose (UA) Urine Ketones Urine Blood Urine Nitrite Ur Leukocyte Esterase Urine RBC Urine WBC Ur Squamous Epith Cells Urine Bacteria Hyaline Casts 12/22/21 12/22/21 12/22/21 13:35 14:07 14:24 MCV MCH MCHC RDW Plt Count MPV Immature Gran % (Auto) Neut % (Auto) Lymph % (Auto) [place] % (Auto) Eos % (Auto) Baso % (Auto) Lymph # (Auto) [place] # (Auto) Eos # (Auto) Baso # (Auto) Abs Immat Gran (auto) Absolute Neuts (auto) Absolute Nucleated RBC Nucleated RBC % (auto) Smear Tech's Comments PT 14.9 H INR 1.3 H APTT 29.5 Anion Gap Estim Creat Clear Calc Estimated GFR Random Glucose Lactic Acid 1.1 Calcium Total Bilirubin Direct Bilirubin AST ALT Alkaline Phosphatase Total Protein Albumin Lipase Urine Color Dark Yellow Urine Appearance Clear Urine pH 6.0 Ur Specific [place] 1.025 Urine Protein 30 (1+) H Urine Glucose (UA) Negative Urine Ketones 80 Urine Blood Negative Urine Nitrite Negative Ur Leukocyte Esterase Trace H Urine RBC 0-2 Urine WBC 0-5 Ur Squamous Epith Cells 6-10 Urine Bacteria Trace Hyaline Casts 0-[address] scan - pelvis: Radiologist's impression: Impressions Abdomen/Pelvis CT 12/22/21 11:00 IMPRESSION: 16 x 12 x 14 cm fluid collection within the subcutaneous soft tissues at the level of the umbilicus consistent with a postoperative seroma. This could be sterile or infected (abscess). Regardless, there is overlying skin thickening with surrounding fat stranding consistent with superimposed cellulitis. Although there is persistent diastases of the rectus abdominis, the previously seen herniated small bowel is now seen within the abdomen without evidence of dilation, consistent with interval repair. The findings and recommendations were discussed with Samuel De La Torre MD by telephone at 12/22/2021 12:21 PM and it was ascertained that the content and urgency of the report was understood at the time of direct communication. Based on volume calculations, approximately 2700 cc of serous fluid is present. Communicated with the Interventional Radiology team and request cultures be sent. I have placed orders. Microbiology Microbiology Results: Microbiology 12/22/21 13:53 Blood Culture - Final Blood - Venous 12/22/21 13:53 Blood Culture - Final Blood - Venous Procedures Date of Service Date of Service: 12/22/21 Progress Note: A&P Assessment and plan (1) Post surgical complication: Status: Acute (2) Postoperative seroma of skin after non-dermatologic procedure: Status: Acute (3) Nicotine use: Status: Acute Plan I communicated the plan with the patient and explained that Augmentin, 875 mg, 1 tablet every 12 hours for 1 week was provided and sent to his pharmacy. Following drainage, his diet can be and he can be discharged home. He has been provided the office number to make an appointment later this week and I will manage his drain on a the patient basis. If he clinically worsens, and returns to the emergency department, please contact me so that I can admit him. Time Spent With Patient Time: Total time spent is greater than 50% in coordination of care (as documented) at patient's floor/unit and/or counseling patient: Quality Stroke Does the patient have a stroke diagnosis?: No VTE Prior VTE?: No VTE Risk Level:: Medical - moderate - high VTE Device Contraindication: N/A - Device Ordered VTE Drug Contraindication: N/A - Med Ordered
--- NOTE | 2021-12-22 16:31 | PC.NURSE ---
pt brougt to sss by ottoniel ivy via stretcher. pt aware of plan of care for abscess drainage by dr. regalado and to return to er.
--- NOTE | 2021-12-22 17:37 | HO.RADPN ---
RADIOLOGY Narrative Narrative: Using US guidance, 8.5 fr pigtail drain placed. Approx 1 L brown fluid removed. Specimen sent for gram stain and cuture.
[2021-12-22] MEDS: Amoxicillin/Potassium Clav 875 MG TABLET PO (17:57)
[2021-12-22 17:58] VITALS: BP 142/81; PULSE 75; RESP 18; TEMP 37; O2SAT 98
--- NOTE | 2021-12-22 18:06 | PC.NURSE ---
patient a/ox4. vitals stable . went over discharge instructions as ordered by provider . follow up with information given . signs and symptoms of infection and malfunction of drain given to patient . patient to return to ED if symptoms worsen . patient able to teach back discharge instructions . no questions at this time .
[2021-12-22] MEDS: Lidocaine HCl 1 % MPF 5 ML VIAL 4 ML SUBCUT (18:16)
== END 2021-12-22 18:48 | disposition home or self-care (01) ==
PROVIDERS: Radiology Diagnostic Radiology; Emergency Provider Emergency Medicine; PCP Internal Medicine
DX: L76.34 Postprocedural seroma of skin and subcutaneous tissue following other procedure (principal); Y83.8 Other surgical procedures as the cause of abnormal reaction of the patient, or of later complication, without mention of misadventure at the time of the procedure; G89.18 Other acute postprocedural pain; K42.9 Umbilical hernia without obstruction or gangrene; E66.9 Obesity, unspecified; Z68.43 Body mass index [BMI] 50.0-59.9, adult; Z87.891 Personal history of nicotine dependence
CPT/HCPCS: 10030; 36415; 74176; 80048; 80076; 81001; 83605; 83690; 85025; 85610; 85730; 87040; 87071; 87073; 87077; 87186; 87205; 96361; 96365; 96375; 96376; 99285; C1729; J2270; J2405; J2543

== ENCOUNTER 2021-12-23 10:37 | Emergency (ER) | payer BC, MEDICAID, SELFPAY ==
[2021-12-23 10:49] VITALS: BP 144/81; PULSE 78; RESP 18; TEMP 36.8; O2SAT 97; BMI 53.1
--- NOTE | 2021-12-23 11:23 | PC.NURSE ---
ROXANNA OF DR CULLEN OFFICE MADE AWARE OF THIS PT IN THE ER @ THIS TIME
[2021-12-23 11:46] LABS: MANUAL DIFF FLAG NO
[2021-12-23 11:57] LABS: Basophils Percent Auto 0.3 % (0-2); Eosinophils Absolute Auto 0.1 X10*3/uL (0.0-0.4); Eosinophils Percent Auto 0.7 % (0-4); Hematocrit 38.5 % (42.0-52.0); Hemoglobin 13.2 g/dl (14.0-18.0); Imm Gran Abs Auto 0.06 X10*3/uL (0.00-0.03); Imm Gran Pct Auto 0.5 % (0.0-0.4); Lymphocytes Absolute Auto 2.1 X10*3/uL (1.2-4.9); Lymphocytes Percent Auto 16.2 % (20-40); Mean Corpuscular HGB Conc 34.3 g/dl (31.0-36.0); Mean Corpuscular Hemoglobin 28.8 pg (27.0-33.0); Mean Corpuscular Volume 84.1 fL (80.0-98.0); Mean Platelet Volume 10.9 fL (9.4-12.4); Monocytes Absolute Auto 1.3 X10*3/uL (0.1-1.2); Monocytes Percent Auto 9.8 % (2-11); Neutrophils Absolute Auto 9.3 x10*3/uL (2.0-8.3); Neutrophils Percent Auto 72.5 % (45-73); Platelet Count 192 X10*3/uL (160-400); Red Blood Count 4.58 X10*6/uL (4.60-5.80); Red Cell Distribution Width 13.4 % (11.0-16.0); White Blood Count 12.8 X10*3/uL (4.8-10.8)
[2021-12-23 12:03] LABS: Anion Gap 14 (12-20); Blood Urea Nitrogen 11 mg/dL (9-16); Calcium 8.9 mg/dL (8.4-10.2); Carbon Dioxide 25 mmol/L (22-29); Chloride 102 mmol/L (96-108); Creatinine Clr Calc Pharmacy 250.2; Estimated Glomerular Filt Rate > 60; Glucose Random 157 mg/dL (60-115); Potassium 3.7 mmol/L (3.3-5.1); Sodium 137 mmol/L (135-145)
--- NOTE | 2021-12-23 12:17 | ED_ITS ---
HPI - General Adult General Chief complaint: General Medical Stated complaint: bleeding after surgery T-1 Time Seen by Provider: 12/23/21 12:17 History of Present Illness HPI narrative: Patient complains of drainage after surgical hernia repair, he was here yesterday and a drain was placed but now there is slightly more swelling and a new opening and more watery yellow drainage He denies any fever and only has mild discomfort, no significant pain Related Data Home Medications Medication Instructions Recorded Confirmed gabapentin 300 mg capsule 600 mg PO TID 09/15/21 12/18/21 metformin 500 mg tablet 1,000 mg PO BIDWM 11/25/21 12/18/21 Previous Rx's Medication Instructions Recorded enalapril maleate 20 mg tablet 20 mg PO BID #180 tabs 04/28/21 ibuprofen 800 mg tablet 800 mg PO Q8H PRN pain #20 tabs 08/27/21 sildenafil 50 mg tablet (Viagra) 50 mg PO DAILY PRN sexual activity 10/20/21 #20 tabs amoxicillin 875 mg-potassium 1 tab PO BID #20 tabs 12/22/21 clavulanate 125 mg tablet Allergies Allergy/AdvReac Type Severity Reaction Status Date / Time hepatitis B virus vaccine Allergy Severe RASH Verified 12/18/21 14:02 [Hepatitis B Virus Vaccine] Review of Systems Review of Systems: No fever no chills no dizziness weakness no headache no neck pain no chest pain no nausea vomiting or diarrhea no dysuria Yes all other systems are reviewed and are negative [facility] Past Medical History Source: nursing notes reviewed Medical History Diabetes mellitus Sleep apnea Surgical History History of surgery on arm Family History Family History Father Hypertension Mother Hypertension Maternal Grandmother CAD (coronary artery disease) Maternal Grandfather Lung cancer Smoker Social History Social History Household Members: Spouse Housing: Apartment Alcohol intake: never Patient Tobacco Use Status: Former Tobacco user Tobacco use type: Cigarette Cigarette Packs Per Day: 1 Cigarettes Per Day: 20.0 e-Cigarette/Vaping Use: Never Used Second Hand Smoke Exposure: No Substance Use Type: Marijuana service: No Current occupational status: employed Current occupational exposures/hazards: No Cognitive needs: No Hearing needs: No Vision needs: Yes Physical Exam ED Vital Signs: Vital Signs - 24 hr 12/23/21 10:49 Temperature 98.2 F Pulse Rate 78 Respiratory Rate 18 Blood Pressure 144/81 H Pulse Oximetry 97 Oxygen Delivery Method Room Air BMI result Body Mass Index 53.1 [place] appearance no acute distress Head is normocephalic atraumatic Eyes anicteric no pallor Neck is supple Pharynx mucous membranes are moist Respiratory no distress The abdomen had a drain in place, there is another opening draining some watery yellow fluid, there is some erythema surrounding the area in the periumbilical area Extremities full range of motion x4 Course Course Course Narrative: Dr. Robertson came to ER to evaluate and examine his patient, he did express copious watery serosanguineous fluid from the seroma from the opening in the umbilical area, he advised that good wound care is all that is needed at this moment in time he does not need any other surgical procedure and patient will follow in the office, and he did feel improved after the fluid was expressed from the seroma Patient was discharged home and will follow with surgeon next week Medical Decision Making Lab Data Result diagrams: 12/23/21 11:04 12/23/21 11:22 Labs: Lab Results 12/23/21 12/23/21 Range/Units 11:04 11:22 WBC 12.8 H (4.8-10.8) X10*3/uL RBC 4.58 L (4.60-5.80) X10*6/uL Hgb 13.2 L (14.0-18.0) g/dl Hct 38.5 L (42.0-52.0) % MCV 84.1 (80.0-98.0) fL MCH 28.8 (27.0-33.0) pg MCHC 34.3 (31.0-36.0) g/dl RDW 13.4 (11.0-16.0) % Plt Count 192 (160-400) X10*3/uL MPV 10.9 (9.4-12.4) fL Immature Gran % (Auto) 0.5 H (0.0-0.4) % Neut % (Auto) 72.5 (45-73) % Lymph % (Auto) 16.2 L (20-40) % [place] % (Auto) 9.8 (2-11) % Eos % (Auto) 0.7 (0-4) % Baso % (Auto) 0.3 (0-2) % Lymph # (Auto) 2.1 (1.2-4.9) X10*3/uL [place] # (Auto) 1.3 H (0.1-1.2) X10*3/uL Eos # (Auto) 0.1 (0.0-0.4) X10*3/uL Baso # (Auto) 0.0 (0.0-0.2) X10*3/uL Abs Immat Gran (auto) 0.06 H (0.00-0.03) X10*3/uL Absolute Neuts (auto) 9.3 H (2.0-8.3) x10*3/uL Absolute Nucleated RBC 0.000 (0.0-0.012) X10*3/uL Nucleated RBC % (auto) 0.0 (0.0-0.2) /100WBC Sodium 137 (135-145) mmol/L Potassium 3.7 (3.3-5.1) mmol/L Chloride 102 (96-108) mmol/L Carbon Dioxide 25 (22-29) mmol/L Anion Gap 14 (12-20) BUN 11 (9-16) mg/dL Creatinine 0.64 (0.5-1.4) mg/dL Estim Creat Clear Calc 250.2 Estimated GFR > 60 Random Glucose 157 H (60-115) mg/dL Calcium 8.9 (8.4-10.2) mg/dL Discharge Plan Discharge Clinical Impression: Post-operative complication Patient Disposition: Home, Self-Care Additional Instructions: You have a common postsurgical complication of a seroma The surgeon saw you and expressed a lot of fluid from it and recommended frequent dressing changes so it can drain on its own and follow in the office Return to the ER any time for fever vomiting increased pain, any change or worse condition any concerns Continue the Augmentin antibiotic prescribed by your surgeon Prescriptions: No Action enalapril maleate 20 mg tablet 20 mg PO BID Qty: 180 8RF metformin 500 mg tablet 1,000 mg PO BIDWM amoxicillin-pot clavulanate 875-125 mg tablet 1 tab PO BID Qty: 20 0RF sildenafil [Viagra] 50 mg tablet 50 mg PO DAILY PRN (Reason: sexual activity) Qty: 20 4RF Rx Instructions: administer 30 minutes to 4 hours before activity gabapentin 300 mg capsule 600 mg PO TID ibuprofen 800 mg tablet 800 mg PO Q8H PRN (Reason: pain) Qty: 20 0RF Referrals: Vic Garcia MD [Primary Care Provider] - Dylan Graham MD [Physician] - Interventions: ED Discharge Assessment Last Done: 12/23/21 12:55 Discharge Date/Time: 12/23/21 12:56
--- NOTE | 2021-12-23 12:39 | PM.CNGS ---
History of Present Illness Consult details Consult date: 12/23/21 Narrative: The patient underwent uneventful percutaneous drainage of a seroma containing Gram-negative organisms yesterday. He contacted the office noting that he was having drainage he was concerned about possible bleeding. We tried to direct him to the office, however he had already gone to the emergency department where I was contacted by the ER team. Patient otherwise denies interval change in reports he is tolerating the Augmentin as prescribed. He otherwise denies fevers, chest pain, difficulty breathing or shortness of breath. Review of Systems Review of Systems: Yes all other systems are reviewed and are negative Constitutional: Constitutional: Reports as per [facility] Past Medical History Medical History Diabetes mellitus Sleep apnea Family History Family History Father Hypertension Mother Hypertension Maternal Grandmother CAD (coronary artery disease) Maternal Grandfather Lung cancer Smoker Surgical History Surgical History History of surgery on arm Social History Social History Household Members: Spouse Housing: Apartment Alcohol intake: never Patient Tobacco Use Status: Former Tobacco user Tobacco use type: Cigarette Cigarette Packs Per Day: 1 Cigarettes Per Day: 20.0 e-Cigarette/Vaping Use: Never Used Second Hand Smoke Exposure: No Substance Use Type: Marijuana Advance Directives: No Advance Directives Information Provided: No service: No Current occupational status: employed Current occupational exposures/hazards: No Cognitive needs: No Hearing needs: No Vision needs: Yes Meds Allergies Allergy/AdvReac Type Severity Reaction Status Date / Time hepatitis B virus vaccine Allergy Severe RASH Verified 12/18/21 14:02 [Hepatitis B Virus Vaccine] Home Medications Medication Instructions Recorded Confirmed Last Taken Type gabapentin 300 mg capsule 600 mg PO TID 09/15/21 12/18/21 11/24/21 History metformin 500 mg tablet 1,000 mg PO BIDWM 11/25/21 12/18/21 11/24/21 History Physical Exam Vital Signs: Vital Signs: Last Vital Signs Temp 98.2 F 12/23/21 10:49 Pulse 78 09/13/22 10:49 Resp 18 12/23/21 10:49 BP 144/81 H 12/23/21 10:49 Pulse Ox 97 12/23/21 10:49 O2 Del Method 12/23/21 10:49 BMI result Body Mass Index 53.1 On exam, the patient is nontoxic Left of midline, the eschar that was present has sloughed and began to drain seroma fluid. The seroma was drained at the bedside Results Labs Result diagrams: 12/23/21 11:04 12/23/21 11:22 Labs: Abnormal lab results 12/23/21 12/23/21 Range/Units 11:04 11:22 WBC 12.8 H (4.8-10.8) X10*3/uL RBC 4.58 L (4.60-5.80) X10*6/uL Hgb 13.2 L (14.0-18.0) g/dl Hct 38.5 L (42.0-52.0) % Immature Gran % (Auto) 0.5 H (0.0-0.4) % Lymph % (Auto) 16.2 L (20-40) % [place] # (Auto) 1.3 H (0.1-1.2) X10*3/uL Abs Immat Gran (auto) 0.06 H (0.00-0.03) X10*3/uL Absolute Neuts (auto) 9.3 H (2.0-8.3) x10*3/uL Random Glucose 157 H (60-115) mg/dL Short CBC 12/23/21 Range/Units 11:04 WBC 12.8 H (4.8-10.8) X10*3/uL Hgb 13.2 L (14.0-18.0) g/dl Hct 38.5 L (42.0-52.0) % Plt Count 192 (160-400) X10*3/uL BMP 12/23/21 11:22 Sodium 137 Potassium 3.7 Chloride 102 Carbon Dioxide 25 BUN 11 Creatinine 0.64 Calcium 8.9 All other labs normal. Imaging Additional studies: Gram-negative richelle noted in the Gram stain and culture from yesterday's drainage by IR Assessment and Plan (1) Seroma of circulatory system after non-circulatory system procedure: Status: Acute (2) Morbid obesity: Status: Acute (3) Hypertension: Status: Acute (4) Poorly controlled type 2 diabetes mellitus: Status: Acute Plan Instructions regarding wound care and drainage were reviewed and apparently understood. The patient will continue his Augmentin as prescribed and follow up with me this . It is recommended he purchase some maxi pads since sterile dressings are not require and that he continue to change dressings as needed. White blood cell count is improved since yesterday. The patient is clinically improved but was startled by the sudden drainage. His electrolytes and renal function are stable. Will assess for possible referral to [facility] on . The patient can be discharged home. Procedures Date of Service Date of Service: 12/23/21
== END 2021-12-23 12:56 | disposition home or self-care (01) ==
PROVIDERS: Emergency Provider Emergency Medicine; PCP Internal Medicine
DX: L76.34 Postprocedural seroma of skin and subcutaneous tissue following other procedure (principal); Y83.8 Other surgical procedures as the cause of abnormal reaction of the patient, or of later complication, without mention of misadventure at the time of the procedure; E11.9 Type 2 diabetes mellitus without complications; I10 Essential (primary) hypertension; F12.90 Cannabis use, unspecified, uncomplicated; Z87.891 Personal history of nicotine dependence; Z79.84 Long term (current) use of oral hypoglycemic drugs
CPT/HCPCS: 36415; 80048; 85025; 99282; 99283

== ENCOUNTER → 2021-12-30 14:37 | Outpatient (BNVA) | payer BC, MEDICAID, SELFPAY | PROVIDERS: PCP Internal Medicine; Visit Provider Internal Medicine Endocrinology, Diabetes & Metabolism | DX: E11.69 Type 2 diabetes mellitus with other specified complication (principal); E66.01 Morbid (severe) obesity due to excess calories | CPT/HCPCS: 82947; 83036 ==

== ENCOUNTER 2022-01-27 | Outpatient (RCR) | payer BC, MEDICAID, SELFPAY | END 2022-07-02 16:00 | disposition home or self-care (01) | LOC: HO.WCC | PROVIDERS: PCP Internal Medicine; Visit Provider Physician Assistant | DX: K91.872 Postprocedural seroma of a digestive system organ or structure following a digestive system procedure (principal); E11.42 Type 2 diabetes mellitus with diabetic polyneuropathy; I10 Essential (primary) hypertension; E66.01 Morbid (severe) obesity due to excess calories; F12.90 Cannabis use, unspecified, uncomplicated; Z87.891 Personal history of nicotine dependence | CPT/HCPCS: 10140; 11042; 87070; 87205; 97597; 97602; 99212; 99213 ==

== ENCOUNTER 2022-01-29 09:30 | Outpatient (REF) | payer BC, MEDICAID, SELFPAY ==
[2022-01-29 11:37] LABS: Anion Gap 16 (12-20); Blood Urea Nitrogen 16 mg/dL (9-16); Calcium 9.4 mg/dL (8.4-10.2); Carbon Dioxide 29 mmol/L (22-29); Chloride 102 mmol/L (96-108); Cholesterol 140 mg/dL; Estimated Glomerular Filt Rate > 60; Glucose Random 144 mg/dL (60-115); HDL Cholesterol 32 mg/dL; LDL Cholesterol Calculated 85 mg/dl; Potassium 4.5 mmol/L (3.3-5.1); Sodium 142 mmol/L (135-145); Triglycerides 115 mg/dL
[2022-01-29 11:41] LABS: Free T4 (Free Thyroxine) 1.01 ng/dL (0.71-1.85); Thyroid Stimulating Hormone 1.74 uIU/mL (0.32-4.0)
[2022-01-29 11:42] LABS: Creatinine Urine 126.81 mg/dL; Microalbum/Creatinine Ratio Ur 6.3 ug/mg cr
== END 2022-01-29 09:31 | disposition home or self-care (01) ==
LOC: HO.LAB 09:30
PROVIDERS: Absent Provider Internal Medicine Endocrinology, Diabetes & Metabolism; PCP Internal Medicine; Visit Provider Internal Medicine
DX: E11.65 Type 2 diabetes mellitus with hyperglycemia (principal)
CPT/HCPCS: 36415; 80048; 80061; 82043; 84439; 84443

== ENCOUNTER → 2022-07-21 09:24 | Outpatient (BNVA) | payer BC, MEDICAID, SELFPAY | PROVIDERS: PCP Internal Medicine; Visit Provider Internal Medicine Endocrinology, Diabetes & Metabolism | DX: E11.65 Type 2 diabetes mellitus with hyperglycemia (principal) | CPT/HCPCS: 82947; 83036 ==

== ENCOUNTER 2023-04-19 13:52 | Outpatient (AMB) | payer BC, MEDICAID, SELFPAY ==
[2023-04-19 13:54] VITALS: BP 142/90; PULSE 87; O2SAT 97; BMI 48.7
--- NOTE | 2023-04-19 13:54 | MHC.PC.OV ---
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 Checks bolld sugars 4 X/day enalapril maleate 20 mg PO BID gabapentin 900 mg (3 x 300 mg) PO TID ibuprofen 800 mg PO Q8H PRN lancets (OneTouch UltraSoft Lancets) As directed lancets (OneTouch UltraSoft Lancets) tests blood sugars 4 X/day lancets (FreeStyle Lancets) Tests 4X/day metformin 1,000 mg (2 x 500 mg) PO BID sildenafil (Viagra) 50 mg PO DAILY PRN Tobacco use date assessed: 04/19/23 Dental Screening Dental Screen Date: 04/19/23 Did you have a dental visit in the last 12 months?: Yes Did you have a dental problem in the last 6 months where you did not have access to dental care?: No Was dental information given to patient?: Patient has dentist HPI ongoing back pain HPI Details has chronic back pain and needs rx refilled; delia sorto pt [facility] Medical History Umbilical hernia Sleep apnea Diabetes mellitus Surgical History History of surgery History of surgery on arm Family History Father Hypertension Mother Hypertension Maternal Grandmother CAD (coronary artery disease) Maternal Grandfather Lung cancer Smoker Social History Household Members: Spouse Housing: Apartment Alcohol intake: never Patient Tobacco Use Status: Current everyday Tobacco user Tobacco use type: Cigarette Cigarette Packs Per Day: 1 Cigarettes Per Day: 20.0 e-Cigarette/Vaping Use: Never Used Second Hand Smoke Exposure: No Substance Use Type: Marijuana service: No Current occupational status: employed Current occupational exposures/hazards: No Cognitive needs: No Hearing needs: No Vision needs: Yes Questionnaire PHQ-9 Over the last 2 weeks, how often have you been bothered by any of the following problems? 1. Little interest or pleasure in doing things: not at all 2. Feeling down, depressed, or hopeless: not at all 3. Trouble falling or staying asleep, or sleeping too much: not at all 4. Feeling tired or having little energy: not at all 5. Poor appetite or overeating: not at all 6. Feeling bad about yourself - or that you are a failure or have let yourself or your family down: not at all 7. Trouble concentrating on things, such as reading the newspaper or watching television: not at all 8. Moving or speaking so slowly that other people could have noticed. Or the opposite - being so fidgety or restless that you have been moving around a lot more than usual: not at all 9. Thoughts that you would be better off or of hurting yourself in some way: not at all Total score: 0 Depression Screening Interpretation: Negative Depression Screening Done: Yes Source: Developed by Drs. Leon Brandon, Andria Barrientos, Jourdan Huitron and colleagues, with an educational vahe from [employer]. Thrive Questionnaire Date Thrive assessed: 04/19/23 I am a: Patient What is your living situation today?: I have a steady place to live Within the past 12 months, did the food you bought not last and you didn't have the money to get more?: Never true Within the past 12 months, did you worry whether your food would run out before you got money to buy more?: Never true Do you have trouble paying for medicines?: No Do you have trouble getting transportation to medical appointments?: No Do you have trouble paying your heating and electricity bill?: No Do you have trouble taking care of your child, family member or friend?: No Do you have trouble with day-to-day activities such as bathing, preparing meals, shopping, managing finances, etc.?: No Are you currently unemployed and looking for a job?: No Are you interested in more education?: No Please select the resources that you would like help with: None AUDIT C Alcohol Use Questionnaire (AUDIT-C) 1. How often do you have a drink containing alcohol?: Never Total Score: 0 Score Reviewed/Action Taken: Yes LUIS-7 AMB Questionnaire LUIS-7 Date LUIS - 7 assessed: 04/19/23 Feeling nervous, anxious, or on edge: 3 = Nearly every day Not being able to stop or control worryin = Nearly every day Worrying too much about different things: 1 = Several days Trouble relaxin = Not at all Being so restless that it is hard to sit still: 0 = Not at all Becoming easily annoyed or irritable: 2 = More than half the days Feeling afraid as if something awful might happen: 2 = More than half the days Total LUIS-7 score (0-4 normal; 5-9 mild; 10-14 moderate; 15-21 severe): 11 Source: Developed by Drs. Leon Brandon, Andria Barrientos, Jourdan Huitron and colleagues, with an educational vahe from [employer]. Review of Systems Const Denies chills, Denies headache(s) and Denies weight loss ENT Denies headache(s) Card Denies chest pain, Denies syncope, Denies irregular heart rhythm and Denies dyspnea Resp Denies chest congestion, Denies cough and Denies dyspnea GI Denies abdominal pain, Denies change in stool character, Denies nausea and Denies vomiting Musc Denies deformity and Denies joint swelling Neuro Denies syncope and Denies headache(s) Physical exam (Primary Care) Vital Signs: Last Vital Signs Pulse 87 04/19/23 13:54 BP 142/90 H 04/19/23 13:54 Pulse Ox 97 04/19/23 13:54 Oxygen Delivery Method Room Air 04/19/23 13:54 BMI result Body Mass Index 48.7 Tobacco/Smoking Status: Tobacco use Status Tobacco use date assessed 04/19/23 04/19/23 13:56 Patient Tobacco Use Status Current everyday Tobacco 04/19/23 13:56 Tobacco use type Cigarette 04/19/23 13:56 e-Cigarette/Vaping Use Never Used 04/19/23 13:56 PHQ-9: PHQ-9 Score PHQ-9: Total score 0 04/19/23 14:07 Depression Screening Interpretation: Negative Thrive Assessment: Date of Thrive Assessment Date Thrive assessed 04/19/23 04/19/23 13:56 Const General: cooperative, comfortable, no acute distress and alert Neck Neck: Yes no lymphadenopathy Thyroid: Thyroid normal Resp Effort & Inspection: normal respiratory effort Auscultation: clear to auscultation bilaterally Percussion: percussion normal Cardio Jugular venous distension: no JVD Palpation: normal PMI Rate: regular rate Rhythm: regular rhythm Heart sounds: S1 normal heart sound present and S2 normal heart sound present GI Inspection: Yes normal to inspection Palpation (GI): No hepatosplenomegaly present Skin General skin exam: no rashes or lesions noted Extrem General: Yes no clubbing, cyanosis or edema Results AMB Hemoglobin A1c AMB Hemoglobin A1c 6.7 % Last Edit by MARICRUZ Henderson on 04/19/23 14:09 Results Reviewed Results Reviewed: Laboratory Last Values Hgb A1c (Clinic) 6.7 % (4.0-6.0) H 04/19/23 14:08 Assessment and Plan Assessment & Plan (1) Type 2 diabetes mellitus with morbid obesity: Code(s): E11.69 - Type 2 diabetes mellitus with other specified complication; E66.01 - Morbid (severe) obesity due to excess calories (2) Low back pain: Code(s): M54.50 - Low back pain, unspecified Plan: rx sent Orders: Orders AMB Hemoglobin A1c Today E11.69 - Type 2 diabetes mellitus with other specified complication, E66.01 - Morbid (severe) obesity due to excess calories Medications: New gabapentin 900 mg (3 x 300 mg) PO TID 270 caps 5RF Coding Level of Care Code Est Pt Level 3 (52760) Diagnoses Type 2 diabetes mellitus with morbid obesity E11.69; E66.01 Low back pain M54.50 Additional Codes PHQ-9 - 56414 - PHQ-9 Billing: ([id number])
== END 2023-04-19 14:14 | disposition home or self-care (01) ==
PROVIDERS: PCP Internal Medicine; Visit Provider Internal Medicine
DX: M54.50 Low back pain, unspecified (principal); E11.65 Type 2 diabetes mellitus with hyperglycemia; E66.01 Morbid (severe) obesity due to excess calories; Z68.42 Body mass index [BMI] 45.0-49.9, adult
CPT/HCPCS: 83036; 99213

== ENCOUNTER 2023-04-24 09:17 | Outpatient (AMB) | payer BC, MEDICAID, SELFPAY ==
--- NOTE | 2023-04-24 11:12 | AM.OFFWIN_ITS ---
Intake Vital Signs 04/24/23 11:14 Height 6 ft Weight 345 lb BMI 46.8 BP 120/84 Blood Pressure Location Rt brachial Position Sitting Pulse 72 Pulse Source Pulse Oximeter Temp 98.1 F Temp Source Oral Pulse Oximetry (%) 97 Oxygen Delivery Method Room Air Intake Visit Reasons: EP body aches fatigue (masked lobby) Intake Note: Patient here for cough, headaches,diarrhea, body aches and fever only when started on . Patient Tobacco Use Status: Current everyday Tobacco user Allergies hepatitis B virus vaccine [Hepatitis B Virus Vaccine] Allergy (Severe, Verified 04/24/23 11:17) RASH Do you need a note to return to daycare/school/sports/work: Yes HPI EP body aches fatigue (masked lobby) HPI Details Patient is a 42-year-old male who comes to the walk-in clinic complaining of fatigue, cough, headache, diarrhea, body aches and fever (for one at onset) going on 3 days. He states that his has similar symptoms. He tested negative for covid at home. He currently denies fever/chills, nausea or vomiting, weakness, chest discomfort or shortness of breath, sore throat, dizziness, or other significant associated symptoms. He is a diabetic but states that his sugars are stable. [facility] Medical History Umbilical hernia Sleep apnea Diabetes mellitus Surgical History History of surgery History of surgery on arm Family History Father Hypertension Mother Hypertension Maternal Grandmother CAD (coronary artery disease) Maternal Grandfather Lung cancer Smoker Social History Household Members: Spouse Housing: Apartment Alcohol intake: never Patient Tobacco Use Status: Current everyday Tobacco user Tobacco use type: Cigarette Cigarette Packs Per Day: 1 Cigarettes Per Day: 20.0 e-Cigarette/Vaping Use: Never Used Second Hand Smoke Exposure: No Substance Use Type: Marijuana service: No Current occupational status: employed Current occupational exposures/hazards: No Cognitive needs: No Hearing needs: No Vision needs: Yes Review of Systems Const All systems reviewed & are unremarkable except as noted in HPI and below Physical Exam Vital Signs: Last Vital Signs Temp 98.1 F 04/24/23 11:14 Pulse 72 04/24/23 11:14 BP 120/84 04/24/23 11:14 Pulse Ox 97 04/24/23 11:14 Oxygen Delivery Method Room Air 04/24/23 11:14 BMI result Body Mass Index 46.8 Const General: cooperative, no acute distress, alert, awake, Physically active, ill appearing and well groomed; No comfortable, anxious, diaphoretic, intoxicated appearing, poor hygiene or tired appearing Nutritional Appearance: obese Orientation/consciousness: oriented to person Limitations: no limitations HEENT Head: Yes normal to inspection, Yes normocephalic and Yes atraumatic Ears: hearing grossly normal bilaterally, external ears normal, EAC's normal and TM abnormal with fluid behind the TM General nose exam: Normal external nose present, Normal nares present, No nasal polyps present and Nasal discharge present Face and sinus: Yes sinuses nontender, Yes face symmetric and Yes other (flushed) Mouth: Normal oral and palatal mucosa present, lip normal and tongue normal Throat: Yes posterior oropharynx normal, Yes abnormal tonsil (mildly erythematous bilaterally), No peritonsillar mass, Yes postnasal drainage, No uvular edema and No cobblestoning Eyes General: appearance normal, both eyes and all related structures Neck Neck: Yes normal visual inspection, Yes full ROM, Yes no lymphadenopathy, Yes trachea midline, Yes supple and No anterior neck swelling Chest Chest palpation & inspection: normal palpation of entire chest wall Resp Effort & Inspection: normal respiratory effort, able to speak in complete sentences, no audible wheezes, no cough, no grunting, not labored, no nasal flaring, no retractions and symmetric chest movement Auscultation: clear to auscultation bilaterally, no crackles, no rales, no r honchi, no wheezes, lung sounds not diminished and No rub present Cardio Palpation: normal PMI Rate: regular rate Rhythm: regular rhythm Heart sounds: S1 normal heart sound present and S2 normal heart sound present Skin Other: Good color, warm and dry Neuro General: oriented to person Psych Appearance: grossly normal Mental Status: mental status grossly normal Speech and movement: Normal speech and movement present Affect: normal affect Attitude: cooperative Thought process: Normal thought process present Insight: Good insight present (Psych) Judgement: Good judgement present (Psych) Assessment & Plan Assessment & Plan (1) Viral syndrome: Code(s): B34.9 - Viral infection, unspecified Plan Patient is a 42-year-old male with diabetes and obesity, who comes to the walk- in clinic with apparent acute viral syndrome. Pending rapid COVID testing as well as respiratory panel to rule out flu COVID and RSV. We discussed supportive care with adequate fluid intake. I will write him for Zofran as needed for nausea, as well Tessalon Perles as needed for the cough, which is mild for him now. He knows to follow up if symptoms persist or worsen Orders: Orders BinaxNOW Covid-19 Ag 04/24/23 Z20.822 - Contact with and (suspected) exposure to COVID-19 SARS-CoV2/FLU/RSV 04/24/23 R09.89 - Other specified symptoms and signs involving the circulatory and respiratory systems Medications: New benzonatate 200 mg PO BID-TID PRN 20 caps 0RF cough ondansetron 4 mg PO TID 5 days PRN 10 tabs 0RF nausea and vomiting Coding Level of Care Code Est Pt Level 4 (22220) Diagnoses Viral syndrome B34.9
[2023-04-24 11:14] VITALS: BP 120/84; PULSE 72; TEMP 36.7; O2SAT 97; BMI 46.8
== END 2023-04-24 12:20 | disposition home or self-care (01) ==
PROVIDERS: PCP Internal Medicine; Visit Provider Physician Assistant Medical
DX: B34.9 Viral infection, unspecified (principal)
CPT/HCPCS: 99214

== ENCOUNTER 2023-04-24 11:38 | Outpatient (REF) | payer BC, MEDICAID, SELFPAY ==
[2023-04-24 12:11] LABS: Binax Internal Control QC Valid; Binax Now Covid-19 Ag Negative (Negative); Binax Performed by: HO.TORG
== END 2023-04-24 11:39 | disposition home or self-care (01) ==
LOC: HO.HMGCLDS 11:38
PROVIDERS: PCP Internal Medicine; Visit Provider Physician Assistant Medical
DX: Z11.52 Encounter for screening for COVID-19 (principal); Z20.822 Contact with and (suspected) exposure to COVID-19
CPT/HCPCS: 87811

== ENCOUNTER 2023-04-24 11:38 | Outpatient (REF) | payer BC, MEDICAID, SELFPAY ==
[2023-04-24 15:17] LABS: Influenza A PCR POSITIVE (Negative); Influenza B PCR NEGATIVE (Negative); Resp Syncy Virus RNA Qual PCR NEGATIVE (Negative); SARS COV2 PCR INHOUSE NEGATIVE (Negative)
== END 2023-04-24 11:39 | disposition home or self-care (01) ==
LOC: HO.LNP 11:38
PROVIDERS: Visit Provider Physician Assistant Medical
DX: Z11.52 Encounter for screening for COVID-19 (principal); Z20.822 Contact with and (suspected) exposure to COVID-19; R09.89 Other specified symptoms and signs involving the circulatory and respiratory systems
CPT/HCPCS: 0241U

== ENCOUNTER 2023-08-13 08:01 | Outpatient (AMB) | payer BC, MEDICAID, SELFPAY ==
[2023-08-13 08:05] VITALS: BP 130/88; PULSE 77; TEMP 36.5; O2SAT 98; BMI 47.6
--- NOTE | 2023-08-13 08:05 | AM.OFFWIN_ITS ---
Intake Vital Signs 08/13/23 08:05 Height 6 ft Weight 351 lb 6 oz BMI 47.6 BP 130/88 Blood Pressure Location Rt brachial Position Sitting Pulse 77 Pulse Source Pulse Oximeter Temp 97.7 F Temp Source Oral Pulse Oximetry (%) 98 Oxygen Delivery Method Room Air Intake Visit Reasons: EP Back pain Intake Note: Pt presents to the office today for c/o back pain that started about 3 days ago. He states he fell and landed on his laundry basket. But he also states he ate food that think made him sick and wasnt sure if he pulled a muscle while being sick. Patient Tobacco Use Status: Current everyday Tobacco user Allergies hepatitis B virus vaccine [Hepatitis B Virus Vaccine] Allergy (Severe, Verified 08/13/23 08:08) RASH HPI HPI Comments History of Present Illness Details 43 y/o male patient who presents to walk in clinic with c/o chronic back pain. Reports pain was aggravated 3 days ago after a fall at home. [facility] Medical History Umbilical hernia Sleep apnea Diabetes mellitus Surgical History History of surgery History of surgery on arm Family History Father Hypertension Mother Hypertension Maternal Grandmother CAD (coronary artery disease) Maternal Grandfather Lung cancer Smoker Social History Household Members: Spouse Housing: Apartment Alcohol intake: never Patient Tobacco Use Status: Current everyday Tobacco user Tobacco use type: Cigarette Cigarette Packs Per Day: 1 Cigarettes Per Day: 20.0 e-Cigarette/Vaping Use: Never Used Second Hand Smoke Exposure: No Substance Use Type: Marijuana service: No Current occupational status: employed Current occupational exposures/hazards: No Cognitive needs: No Hearing needs: No Vision needs: Yes Review of Systems Const All systems reviewed & are unremarkable except as noted in HPI and below Physical Exam Vital Signs: Last Vital Signs Temp 97.7 F 08/13/23 08:05 Pulse 77 08/13/23 08:05 BP 130/88 08/13/23 08:05 Pulse Ox 98 08/13/23 08:05 Oxygen Delivery Method Room Air 08/13/23 08:05 BMI result Body Mass Index 47.6 Const General: no acute distress; No comfortable Nutritional Appearance: obese morbidly obese Orientation/consciousness: patient oriented x3 Back/Spine/Pelvis Thoracic/Lumbar Spine: pain with thoraco-lumbar ROM, thoraco-lumbar spasm, thoracic spinal tenderness and lumbar spinal tenderness Neuro General: patient oriented x3, gait normal and moves all extremities Psych Speech and movement: Normal speech and movement present Assessment & Plan Assessment & Plan (1) Lumbosacral pain: Code(s): M54.50 - Low back pain, unspecified Plan: - Advised Emergency room if pain is severe. - Rx'd Lido Patches - Continue taking Ibuprofen/Acetaminophen and Janny for pain relief - Advised to F/u with his Spine and pain doctors. Medications: New lidocaine 5% leave on most painful area for up to 12 hrs 1 patch topical DAILY 30 ea 0RF M54.50 - Low back pain, unspecified Coding Level of Care Code Est Pt Level 3 (29175) Diagnoses Lumbosacral pain M54.50 Time Spent (min) 15
== END 2023-08-13 09:01 | disposition home or self-care (01) ==
PROVIDERS: PCP Internal Medicine; Visit Provider Nurse Practitioner Family
DX: M54.50 Low back pain, unspecified (principal)
CPT/HCPCS: 99213

== ENCOUNTER 2023-08-13 08:59 | Emergency (ER) | payer BC, MEDICAID, SELFPAY ==
--- NOTE | ~2023-08-13 | XR_ITS ---
EXAMINATION: XR LUMBOSACRAL SPINE CLINICAL INFORMATION: Fall, right-sided pain. COMPARISON: CT abdomen/pelvis 12/22/2021. TECHNIQUE: Three views of the lumbosacral spine. FINDINGS: No evidence of acute compression deformity or subluxation. Mild to moderate multilevel intervertebral disc height loss and facet arthropathy leading to some degree of neural foraminal encroachment at L4-L5 and L5-S1. Symmetric SI joints. No significant paraspinal soft tissue abnormality. Moderate degree of stool burden in the colon. XR/XR lumbar spine 2-3V IMPRESSION: 1. No acute compression deformity or subluxation. 2. Lumbar spondylosis with their foraminal encroachment at L4-S1. 3. Moderate degree of stool content in the colon, correlate clinically for constipation.
--- NOTE | ~2023-08-13 | XR_ITS ---
EXAMINATION: XR RIBS, RIGHT CLINICAL INFORMATION: Fall. Right rib pain and tenderness. COMPARISON: Previous chest x-ray April 2019 TECHNIQUE: 3 views of the right ribs were obtained. FINDINGS: Lungs are clear. No consolidation, pneumothorax, or pleural effusion. The cardiomediastinal silhouette and pulmonary vasculature are normal. Degenerative changes of the spine. Ribs are intact. No fractures are identified. XR/XR ribs RT min 3V w CXR1V IMPRESSION: No rib fracture seen. No evidence for acute disease in the chest.
[2023-08-13 09:17] VITALS: BP 142/80; PULSE 73; RESP 19; TEMP 36.6; O2SAT 98; BMI 47.6
[2023-08-13 09:37] LABS: MANUAL DIFF FLAG NO
[2023-08-13 09:40] LABS: Appearance Urine Clear; Color Urine Yellow; Glucose Urine UA Negative (Negative); Leukocyte Esterase Urine Negative (Negative); Nitrite Urine Negative (Negative); PH 5.5 (5.0-9.0); Specific Gravity - Urine >= 1.030 (1.005-1.025); Urine Blood Negative (Negative); Urine Ketones Trace mg/dL (Negative); Urine Protein Negative (Neg-Trace)
[2023-08-13 09:40] LABS: Basophils Absolute Auto 0.1 X10*3/uL (0.0-0.2); Basophils Percent Auto 0.5 % (0-2); Eosinophils Absolute Auto 0.2 X10*3/uL (0.0-0.4); Eosinophils Percent Auto 2.4 % (0-4); Hematocrit 47.7 % (42.0-52.0); Hemoglobin 16.7 g/dl (14.0-18.0); Imm Gran Abs Auto 0.03 X10*3/uL (0.00-0.03); Imm Gran Pct Auto 0.3 % (0.0-0.4); Lymphocytes Absolute Auto 2.4 X10*3/uL (1.2-4.9); Lymphocytes Percent Auto 25.7 % (20-40); Mean Corpuscular Hemoglobin 30.5 pg (27.0-33.0); Mean Platelet Volume 10.8 fL (9.4-12.4); Monocytes Absolute Auto 0.7 X10*3/uL (0.1-1.2); Monocytes Percent Auto 7.6 % (2-11); Neutrophils Absolute Auto 5.9 x10*3/uL (2.0-8.3); Neutrophils Percent Auto 63.5 % (45-73); Platelet Count 175 X10*3/uL (160-400); Red Blood Count 5.48 X10*6/uL (4.60-5.80); Red Cell Distribution Width 13.2 % (11.0-16.0); White Blood Count 9.2 X10*3/uL (4.8-10.8)
[2023-08-13 10:08] LABS: Alanine Aminotransferase 25 U/L (0-40); Albumin Level 4.2 g/dL (3.5-5.0); Alkaline Phosphatase 53 U/L (39-117); Anion Gap 14 (12-20); Aspartate Amino Transferase 19 U/L (5-37); Bilirubin Direct 0.1 mg/dL (0.0-0.5); Bilirubin Total 0.3 mg/dL (0.0-1.0); Blood Urea Nitrogen 17 mg/dL (9-16); Calcium 9.6 mg/dL (8.4-10.2); Carbon Dioxide 23 mmol/L (22-29); Chloride 106 mmol/L (96-108); Creatinine Clr Calc Pharmacy 216.1; Estimated Glomerular Filt Rate > 60; Glucose Random 109 mg/dL (60-115); Lipase 23 U/L (8-78); Potassium 4.2 mmol/L (3.3-5.1); Sodium 139 mmol/L (135-145)
--- NOTE | 2023-08-13 11:23 | ED.GENADULT ---
HPI - General Adult General Chief complaint: Back Pain/Injury Stated complaint: r side abd to back pain Time Seen by Provider: 08/13/23 13:08 Source: patient Mode of arrival: ambulatory Limitations: no limitations History of Present Illness HPI narrative: Patient is a 43-year-old male with history of T2DM, HTN presenting to the emergency department with complaint of right lateral rib pain and right lower back pain radiating over to right hip since Wednesday. Fell in living room on Wednesday night and landed on a basket of laundry. Denies head strike or loss of consciousness but states he hit his upper back on the coffee table. The following day he and his both ate leftovers and then a few hours later they both developed nausea. Patient reports that he dry heaves several times but did not vomit, denies diarrhea. States he typically drinks large amounts of caffeine but has not had any today. Denies any hematuria, hematochezia, melena. Denies any weakness, numbness, tingling to lower extremities. Denies saddle anesthesia or bowel or bladder incontinence. Denies fevers, history of cancer, IVDU. States he takes 800 mg of ibuprofen twice daily as well as Tylenol and gabapentin at baseline. States he was already seen at urgent care for same and prescribed lidocaine patches. MD complaint: Rib pain, back pain Onset (ago): day(s) Location: back Radiation: other (Right hip) Quality: aching Pain Consistency: constant Relieving factors: none Exacerbating factors: movement Associated symptoms: denies other symptoms Treatments prior to arrival: NSAID and other Related Data Previous Rx's ?Medication ?Instructions ?Recorded ibuprofen 800 mg tablet 800 mg PO Q8H PRN pain #20 tabs 08/27/21 lancets 28 gauge (FreeStyle #100 ea 01/08/22 Lancets) lancets (OneTouch UltraSoft #100 ea 01/16/22 Lancets) blood sugar diagnostic (OneTouch #100 ea 01/27/22 Verio test strips) blood-glucose meter (OneTouch #1 ea 01/27/22 Verio Flex Meter) lancets (OneTouch UltraSoft #200 ea 01/27/22 Lancets) enalapril maleate 20 mg tablet 20 mg PO BID #180 tabs 05/17/22 sildenafil 50 mg tablet (Viagra) 50 mg PO DAILY PRN sexual activity 02/25/23 #20 tabs metformin 500 mg tablet 1,000 mg (2 x 500 mg) PO BID #360 03/03/23 tabs gabapentin 300 mg capsule 900 mg (3 x 300 mg) PO TID #270 04/19/23 caps cyclobenzaprine 5 mg tablet 5 mg PO TID PRN muscle spasm #10 08/13/23 tabs lidocaine 5 % topical patch 1 patch topical DAILY #30 ea 08/13/23 Allergies Allergy/AdvReac Type Severity Reaction Status Date / Time hepatitis B virus vaccine Allergy Severe RASH Verified 08/13/23 09:21 [Hepatitis B Virus Vaccine] Review of Systems Review of Systems: As per HPI. Yes all other systems are reviewed and are negative Constitutional: Constitutional: Reports as per HPI [facility] Past Medical History Medical History Umbilical hernia Sleep apnea Diabetes mellitus Surgical History History of surgery History of surgery on arm Family History Family History Father Hypertension Mother Hypertension Maternal Grandmother CAD (coronary artery disease) Maternal Grandfather Lung cancer Smoker Social History Social History Household Members: Spouse Housing: Apartment Alcohol intake: never Patient Tobacco Use Status: Current everyday Tobacco user Tobacco use type: Cigarette Cigarette Packs Per Day: 1 Cigarettes Per Day: 20.0 e-Cigarette/Vaping Use: Never Used Second Hand Smoke Exposure: No Substance Use Type: Marijuana Advance Directives: No Advance Directives Information Provided: No service: No Current occupational status: employed Current occupational exposures/hazards: No Cognitive needs: No Hearing needs: No Vision needs: Yes Physical Exam ED Vital Signs: Vital Signs - 24 hr 08/13/23 09:17 Temperature 98 F Pulse Rate 73 Respiratory Rate 19 Blood Pressure 142/80 H Pulse Oximetry 98 Oxygen Delivery Method Room Air BMI result Body Mass Index 47.6 Vital signs have been reviewed and appear to be correct. Blood pressure elevated. Heart rate normal. Respiratory rate normal. Temperature normal. Oxygen saturation normal. Const General: cooperative and no acute distress Nutritional Appearance: obese Orientation/consciousness: oriented to person, oriented to place, oriented to time and patient oriented x3 Limitations: no limitations HENMT Head: Yes normocephalic and Yes atraumatic Ears: external ears normal General nose exam: Normal external nose present Face and sinus: Yes face symmetric Mouth: oropharynx normal and moist mucous membranes Throat: Yes uvula midline Eyes Pupils: Equal, round and reactive pupils present Neck Neck: Yes normal visual inspection, Yes no meningeal signs and Yes supple Chest Chest palpation & inspection: normal inspection of the chest and tenderness rib right mid-axillary line involving the 9th rib, involving the 10th rib and involving the 11th rib Resp Effort & Inspection: normal respiratory effort and able to speak in complete sentences Auscultation: clear to auscultation bilaterally Cardio Rate: regular rate Rhythm: regular rhythm Heart sounds: S1 normal heart sound present and S2 normal heart sound present GI Palpation (GI): Soft to palpation and nontender Auscultation: normoactive bowel sounds General: Yes no CVA tenderness Back/Spine/Pelvis Back: no CVA tenderness Cervical Spine: normal cervical lordosis, cervical ROM normal, No Cervical spine tenderness and No step off deformity Thoracic/Lumbar Spine: thoracic and lumbar spine normal to inspection, thoraco-lumbar ROM normal, straight leg raise negative bilaterally, pain with thoraco-lumbar ROM, paraspinal muscle tenderness on the right in the upper lumbar, No thoracic spinal tenderness and lumbar spinal tenderness at L1 and at L2 Skin General skin exam: elasticity normal and turgor normal Neuro General: oriented to person, oriented to place, oriented to time, patient oriented x3, gait normal, tone normal, moves all extremities, Normal light touch and pain sensation, no meningeal signs, no focal motor deficits, CN's II-XI intact bilaterally and deep tendon reflexes 2+ bilaterally Cranial nerves: Yes Equal, round and reactive pupils present Cognition (Neuro): normal cognition Motor exam (neuro): 5/5 motor strength present throughout, Normal motor muscle tone present throughout and Motor abnormalities not present Sensory Exam: Normal double simultaneous stimulation for sensation Extrem General: Yes full ROM, Yes no pedal edema and Yes no calf tenderness Psych Mental Status: mental status grossly normal Affect: normal affect Thought process: Normal thought process present Medical Decision Making Medical Decision Making MDM Narrative: Patient is a 43-year-old male with history of T2DM, HTN presenting to the emergency department with complaint of right lateral rib pain and right lower back pain radiating over to right hip since Wednesday. On exam patient is awake, A+Ox3, VS WNL, afebrile, normal neurological exam without focal deficits, physical exam findings as above. Given reported symptoms and physical exam findings, initial differential includes rib contusion, rib fracture, lumbar strain, lumbar radiculopathy, degenerative disc disease, disc herniation, spinal stenosis, spondylosis. Less likely vertebral fracture. Do not suspect malignancy/mass, SEA, cauda equina/cord compression. Labs notable for no anemia, no evidence of KIMBERLEY. X-ray ribs notable for no acute fracture. X-ray lumbar spine notable for no evidence of compression fracture/deformity, subluxation; lumbar spondylosis at L4-S1. My interpretation is in agreement with the radiologist's interpretation. Results discussed with patient and all questions answered. Will treat patient with course of cyclobenzaprine, patient states he does not need additional prescription for lidocaine patches as he just received a prescription for this at urgent Care. Instructed patient follow-up with his primary care provider as well as pain management as he has been seen there previously. Return precautions discussed. Patient verbalized understanding of and agreement with plan. Differential Diagnosis Differential Diagnoses: The differential diagnosis associated with the presentation includes As per MDM. Admission/Observation Consideration of admission/observation: Escalation of care including admission/observation considered Patient would have been admitted to the hospital had their work up had any findings where hospital admission was appropriate and their clinical presentation warranted hospital admission. Lab Data [facility] Lab Attestation statement: I reviewed the patient's lab results. As per MDM. 08/13/23 09:32 08/13/23 09:32 Labs: Lab Results 08/13/23 08/13/23 Range/Units 09:28 09:32 WBC 9.2 (4.8-10.8) X10*3/uL RBC 5.48 (4.60-5.80) X10*6/uL Hgb 16.7 D (14.0-18.0) g/dl Hct 47.7 D (42.0-52.0) % MCV 87.0 (80.0-98.0) fL MCH 30.5 (27.0-33.0) pg MCHC 35.0 (31.0-36.0) g/dl RDW 13.2 (11.0-16.0) % Plt Count 175 (160-400) X10*3/uL MPV 10.8 (9.4-12.4) fL Immature Gran % (Auto) 0.3 (0.0-0.4) % Neut % (Auto) 63.5 (45-73) % Lymph % (Auto) 25.7 (20-40) % [place] % (Auto) 7.6 (2-11) % Eos % (Auto) 2.4 (0-4) % Baso % (Auto) 0.5 (0-2) % Lymph # (Auto) 2.4 (1.2-4.9) X10*3/uL [place] # (Auto) 0.7 (0.1-1.2) X10*3/uL Eos # (Auto) 0.2 (0.0-0.4) X10*3/uL Baso # (Auto) 0.1 (0.0-0.2) X10*3/uL Abs Immat Gran (auto) 0.03 (0.00-0.03) X10*3/uL Absolute Neuts (auto) 5.9 (2.0-8.3) x10*3/uL Absolute Nucleated RBC 0.000 (0.0-0.012) X10*3/uL Nucleated RBC % (auto) 0.0 (0.0-0.2) /100WBC Sodium 139 (135-145) mmol/L Potassium 4.2 (3.3-5.1) mmol/L Chloride 106 (96-108) mmol/L Carbon Dioxide 23 (22-29) mmol/L Anion Gap 14 (12-20) BUN 17 H (9-16) mg/dL Creatinine 0.68 (0.5-1.4) mg/dL Estim Creat Clear Calc 216.1 Estimated GFR > 60 Random Glucose 109 (60-115) mg/dL Calcium 9.6 (8.4-10.2) mg/dL Total Bilirubin 0.3 (0.0-1.0) mg/dL Direct Bilirubin 0.1 (0.0-0.5) mg/dL AST 19 (5-37) U/L ALT 25 (0-40) U/L Alkaline Phosphatase 53 (39-117) U/L Total Protein 7.0 (6.5-8.0) g/dL Albumin 4.2 (3.5-5.0) g/dL Lipase 23 (8-78) U/L Urine Color Yellow Urine Appearance Clear Urine pH 5.5 (5.0-9.0) Ur Specific [place] >= 1.030 H (1.005-1.025) Urine Protein Negative (Neg-Trace) mg/dL Urine Glucose (UA) Negative (Negative) mg/dL Urine Ketones Trace (Negative) mg/dL Urine Blood Negative (Negative) Urine Nitrite Negative (Negative) Ur Leukocyte Esterase Negative (Negative) Independent Interpretation I performed an independent interpretation of an: Plain X-Ray Interpretation: Rib x-ray without evidence of fracture. Lumbar x-ray is without evidence of compression fracture/deformity, subluxation; lumbar spondylosis at L4-S1 Radiology Impression Discussion of test interpretation with radiology: I have reviewed the radiologist's reading. Radiologist Impression: XR/XR ribs RT min 3V w CXR1V IMPRESSION: No rib fracture seen. No evidence for acute disease in the chest. XR/XR lumbar spine 2-3V IMPRESSION: 1. No acute compression deformity or subluxation. 2. Lumbar spondylosis with their foraminal encroachment at L4-S1. 3. Moderate degree of stool content in the colon, correlate clinically for constipation. External Record Review External record reviewed: Inpatient record, Office record and Outpatient record Prescription Management I considered prescription management with: Other Discharge Plan Discharge Clinical Impression: Lumbar radiculopathy, Contusion of rib Patient Disposition: Home, Self-Care Instructions: Contusion in Adults (ED), Lumbar Radiculopathy (ED), Rib Contusion (ED) Additional Instructions: You were evaluated in the emergency department today for rib and back pain. Your evaluation did not show signs of medical conditions requiring emergent intervention at this time. We recommended that you use ibuprofen or Tylenol per package directions every 6 hours as needed for pain. If necessary, you can alternate these medications so that you take one medication every 3 hours. For instance, at noon take ibuprofen, then at 3:00 p.m. take Tylenol, then at 6:00 p.m. take ibuprofen. You have been prescribed a muscle relaxer which you may take every 8 hours as needed for spasms. Please schedule an appointment for follow-up with your primary care physician this week for further evaluation of your symptoms. Return to the emergency department if you experience worsening back pain, difficulty walking, fevers, numbness, tingling, incontinence, groin numbness or tingling, or any other concerning symptoms. Prescriptions: New cyclobenzaprine 5 mg tablet 5 mg PO TID PRN (Reason: muscle spasm) Qty: 10 0RF No Action (DME) lancets [FreeStyle Lancets] 28 gauge misc See Rx Instructions .Route Qty: 100 5RF Rx Instructions: Tests 4X/day (DME) lancets [OneTouch UltraSoft Lancets] Misc See Rx Instructions .Route Qty: 100 6RF Rx Instructions: tests blood sugars 4 X/day (DME) OneTouch Verio test strips Strip See Rx Instructions .Route Qty: 100 0RF Rx Instructions: As directed tests sugar 4 X/day (DME) blood-glucose meter [OneTouch Verio Flex meter] [facility] See Rx Instructions .Route Qty: 1 0RF Rx Instructions: As directed. Checks bolld sugars 4 X/day (DME) lancets [OneTouch UltraSoft Lancets] Misc See Rx Instructions .Route Qty: 200 1RF Rx Instructions: As directed enalapril maleate 20 mg tablet 20 mg PO BID Qty: 180 8RF sildenafil [Viagra] 50 mg tablet 50 mg PO DAILY PRN (Reason: sexual activity) Qty: 20 4RF Rx Instructions: administer 30 minutes to 4 hours before activity metformin 500 mg tablet 1,000 mg PO BID Qty: 360 2RF ibuprofen 800 mg tablet 800 mg PO Q8H PRN (Reason: pain) Qty: 20 0RF gabapentin 300 mg capsule 900 mg PO TID Qty: 270 5RF lidocaine 5 % adhesive patch,medicated 1 patch topical DAILY Qty: 30 0RF Rx Instructions: leave on most painful area for up to 12 hrs Print Language: Chinese
[2023-08-13 13:15] VITALS: BP 133/83; PULSE 55; RESP 18; TEMP 36.1; O2SAT 99
== END 2023-08-13 13:20 | disposition home or self-care (01) ==
PROVIDERS: Emergency Provider Emergency Medicine; PCP Internal Medicine
DX: M54.16 Radiculopathy, lumbar region (principal); S20.211A Contusion of right front wall of thorax, initial encounter; E11.9 Type 2 diabetes mellitus without complications; I10 Essential (primary) hypertension; W18.30XA Fall on same level, unspecified, initial encounter; Y93.9 Activity, unspecified; Y92.9 Unspecified place or not applicable; Y99.9 Unspecified external cause status
CPT/HCPCS: 36415; 71101; 72100; 80048; 80076; 81003; 83690; 85025; 99282; 99283

== ENCOUNTER 2023-11-09 11:11 | Outpatient (AMB) | payer BC, MEDICAID, SELFPAY ==
[2023-11-09 11:12] VITALS: BP 150/88; PULSE 67; O2SAT 99; BMI 46.9
--- NOTE | 2023-11-09 11:12 | MHC.PC.OV ---
Vital Signs 11/09/23 11:12 Height 6 ft Weight 346 lb BMI 46.9 BP 150/88 H Blood Pressure Location Lt brachial Position Sitting Pulse 67 Pulse Source Pulse Oximeter Pulse Oximetry (%) 99 Oxygen Delivery Method Room Air Intake Visit Reasons: ED Follow up [employer]ane [employer]er: Not Required per policy Accompanied by: Self / Same As Patient Allergies hepatitis B virus vaccine [Hepatitis B Virus Vaccine] Allergy (Severe, Verified 11/09/23 11:12) RASH Medication List - Last Reconciled 11/09/23 by Vic Garcia MD blood sugar diagnostic (OneTouch Verio test strips) As directed tests sugar 4 X/day blood-glucose meter (OneTouch Verio Flex Meter) As directed. Checks bolld sugars 4 X/day cyclobenzaprine 5 mg PO TID PRN enalapril maleate 20 mg PO BID gabapentin 900 mg (3 x 300 mg) PO TID ibuprofen 800 mg PO Q8H PRN lancets (OneTouch UltraSoft Lancets) As directed lancets (OneTouch UltraSoft Lancets) tests blood sugars 4 X/day lancets (FreeStyle Lancets) Tests 4X/day lidocaine 5% 1 patch topical DAILY metformin 1,000 mg (2 x 500 mg) PO BID sildenafil (Viagra) 50 mg PO DAILY PRN Tobacco use date assessed: 04/19/23 Dental Screening Dental Screen Date: 04/19/23 HPI ED Follow up HPI Details lower back pain radiating down left leg; has outside mri done; went to [facility] and would like another opinion [facility] Medical History Umbilical hernia Sleep apnea Diabetes mellitus Surgical History History of surgery History of surgery on arm Family History Father Hypertension Mother Hypertension Maternal Grandmother CAD (coronary artery disease) Maternal Grandfather Lung cancer Smoker Social History Household Members: Spouse Housing: Apartment Alcohol intake: never Patient Tobacco Use Status: Current everyday Tobacco user Tobacco use type: Cigarette Cigarette Packs Per Day: 1 Cigarettes Per Day: 20.0 e-Cigarette/Vaping Use: Never Used Second Hand Smoke Exposure: No Substance Use Type: Marijuana service: No Current occupational status: employed Current occupational exposures/hazards: No Cognitive needs: No Hearing needs: No Vision needs: Yes Questionnaire Thrive Questionnaire Date Thrive assessed: 04/19/23 LUIS-7 AMB Questionnaire LUIS-7 Date LUIS - 7 assessed: 04/19/23 Source: Developed by Drs. Leon Brandon, Andria Barrientos, Jourdan Huitron and colleagues, with an educational vahe from [employer]. Review of Systems Const Denies chills, Denies headache(s) and Denies weight loss ENT Denies headache(s) Card Denies chest pain, Denies syncope, Denies irregular heart rhythm and Denies dyspnea Resp Denies chest congestion, Denies cough and Denies dyspnea GI Denies abdominal pain, Denies change in stool character, Denies nausea and Denies vomiting Musc Denies deformity and Denies joint swelling Neuro Denies syncope and Denies headache(s) Physical exam (Primary Care) Vital Signs: Last Vital Signs Pulse 67 11/09/23 11:12 BP 150/88 H 11/09/23 11:12 Pulse Ox 99 11/09/23 11:12 Oxygen Delivery Method Room Air 11/09/23 11:12 BMI result Body Mass Index 46.9 Tobacco/Smoking Status: Tobacco use Status Tobacco use date assessed 04/19/23 11/09/23 11:12 Patient Tobacco Use Status Current everyday Tobacco 11/09/23 11:12 Tobacco use type Cigarette 11/09/23 11:12 e-Cigarette/Vaping Use Never Used 11/09/23 11:12 Thrive Assessment: Date of Thrive Assessment Date Thrive assessed 04/19/23 11/09/23 11:12 Const General: cooperative, comfortable, no acute distress and alert Neck Neck: Yes no lymphadenopathy Thyroid: Thyroid normal Resp Effort & Inspection: normal respiratory effort Auscultation: clear to auscultation bilaterally Percussion: percussion normal Cardio Jugular venous distension: no JVD Palpation: normal PMI Rate: regular rate Rhythm: regular rhythm Heart sounds: S1 normal heart sound present and S2 normal heart sound present GI Inspection: Yes normal to inspection Palpation (GI): No hepatosplenomegaly present Skin General skin exam: no rashes or lesions noted Extrem General: Yes no clubbing, cyanosis or edema Assessment and Plan Assessment & Plan (1) Low back pain: Code(s): M54.50 - Low back pain, unspecified Plan: referred Orders: Referrals Neurosurgery Referral M54.50 - Low back pain, unspecified Coding Level of Care Code Est Pt Level 3 (70013) Diagnoses Low back pain M54.50
== END 2023-11-09 11:47 | disposition home or self-care (01) ==
PROVIDERS: PCP Internal Medicine; Visit Provider Internal Medicine
DX: M54.50 Low back pain, unspecified (principal)
CPT/HCPCS: 99213

== ENCOUNTER 2024-08-10 15:43 | Outpatient (AMB) | payer BC, MEDICAID, SELFPAY ==
[2024-08-10 15:50] VITALS: BP 128/84; PULSE 75; RESP 16; TEMP 37; O2SAT 98; BMI 44.4
--- NOTE | 2024-08-10 15:50 | A.OFFPC_ITS ---
Vital Signs 08/10/24 15:50 Height 6 ft Weight 327 lb 9.6 oz BMI 44.4 BP 128/84 Blood Pressure Location Lt brachial Position Sitting Respiration 16 Pulse 75 Pulse Source Pulse Oximeter Temp 98.6 F Temp Source Oral Pulse Oximetry (%) 98 Oxygen Delivery Method Room Air Intake Visit Reasons: annual exam/monae Dr Garcia Perioperative Tech Required: No Accompanied by: Self / Same As Patient Allergies hepatitis B virus vaccine [Hepatitis B Virus Vaccine] Allergy (Severe, Verified 08/10/24 16:13) RASH Medication List - Last Reconciled 08/10/24 by CHIQUI Pardo enalapril maleate 20 mg PO BID gabapentin 900 mg (3 x 300 mg) PO TID 30 days metformin 1,000 mg (2 x 500 mg) PO BID sildenafil (Viagra) 50 mg PO DAILY PRN Tobacco use date assessed: 08/10/24 Dental Screening Dental Screen Date: 08/10/24 Did you have a dental visit in the last 12 months?: No Did you have a dental problem in the last 6 months where you did not have access to dental care?: No Was dental information given to patient?: Patient has dentist HPI annual exam/monae Dr Garcia HPI Details Dentist:no up to date Eye: up to date Snellen: Right: Left: Corrected vision: glasses, STI screening: Colonoscopy: cologuard Pap Smer:n/a PHQ-9: Flu: missed it this past year COVID:x2 Tdap: will give today in office Diet: Regular Exercise: occasionally walks The patient is a 44-year-old male presenting for a physical examination and transition of care. He reports ongoing dental pain due to a suspected infection and possibly impacted wisdom tooth, managed with painkillers. Financial constraints have hindered dental visits, affecting care continuity. Significant [id number] analgesic use includes ibuprofen and acetaminophen. The patient has nicotine dependence, smoking half to a full pack per day. Knee pain is noted, primarily in the right knee, with a burning sensation and aching exacerbated by specific movements. He mentions a history of lumbar sprain managed previously with medication, showing no adherence to recent therapy; persistent residual sciatic nerve pain is also suspected. Diabetes management appears adequate with an A1c of 5.9, showing good glycemic control. The patient has a history of umbilical hernia repair and prior lumbar sprain. The vaccination history is inconsistent due to healthcare access issues, with tetanus last administered in 2012. He reports missing recent flu vaccinations due to personal life disruptions. The patient experienced significant weight loss, improved but open conjunctive management challenges, impacting hypertensive management adjustments. ON LICENSE OF [facility] Medical History Umbilical hernia Sleep apnea Diabetes mellitus Surgical History History of surgery History of surgery on arm Family History Father Hypertension Mother Hypertension Maternal Grandmother CAD (coronary artery disease) Maternal Grandfather Lung cancer Smoker Social History Household Members: Spouse Housing: Apartment Alcohol intake: never Patient Tobacco Use Status: Current everyday Tobacco user Tobacco use type: Cigarette Cigarette Packs Per Day: 0.5 Cigarettes Per Day: 10 e-Cigarette/Vaping Use: Never Used Second Hand Smoke Exposure: No Substance Use Type: Marijuana service: No Current occupational status: employed Current occupational exposures/hazards: No Cognitive needs: No Hearing needs: No Vision needs: Yes (Glasses) Questionnaire PHQ-9 Over the last 2 weeks, how often have you been bothered by any of the following problems? 1. Little interest or pleasure in doing things: nearly every day 2. Feeling down, depressed, or hopeless: not at all 3. Trouble falling or staying asleep, or sleeping too much: not at all 4. Feeling tired or having little energy: not at all 5. Poor appetite or overeating: not at all 6. Feeling bad about yourself - or that you are a failure or have let yourself or your family down: not at all 7. Trouble concentrating on things, such as reading the newspaper or watching television: not at all 8. Moving or speaking so slowly that other people could have noticed. Or the opposite - being so fidgety or restless that you have been moving around a lot more than usual: not at all 9. Thoughts that you would be better off or of hurting yourself in some way: not at all Total score: 3 Depression Screening Interpretation: Negative Depression Screening Done: Yes 17321 - PHQ-9 Billing: Yes Source: Developed by Andria Brown, Jourdan Huitron and colleagues, with an educational vahe from [employer]. Thrive Questionnaire Date Thrive assessed: 08/10/24 I am a: Patient What is your living situation today?: I have a steady place to live Within the past 12 months, did the food you bought not last and you didn't have the money to get more?: Never true Within the past 12 months, did you worry whether your food would run out before you got money to buy more?: Never true Do you have trouble paying for medicines?: Yes Do you have trouble getting transportation to medical appointments?: No Do you have trouble paying your heating and electricity bill?: No Do you have trouble taking care of your child, family member or friend?: No Do you have trouble with day-to-day activities such as bathing, preparing meals, shopping, managing finances, etc.?: No Are you currently unemployed and looking for a job?: No Are you interested in more education?: No Please select the resources that you would like help with: Paying for medicine Currently or been in a relationship where the following occur: No concerns reported THRIVE Score: 0 AUDIT C Alcohol Use Questionnaire (AUDIT-C) 1. How often do you have a drink containing alcohol?: Never Total Score: 0 Score Reviewed/Action Taken: Yes LUIS-7 AMB Questionnaire LUIS-7 Date LUIS - 7 assessed: 08/10/24 Feeling nervous, anxious, or on edge: 3 = Nearly every day Not being able to stop or control worryin = Not at all Worrying too much about different things: 0 = Not at all Trouble relaxin = Nearly every day Being so restless that it is hard to sit still: 0 = Not at all Becoming easily annoyed or irritable: 0 = Not at all Feeling afraid as if something awful might happen: 0 = Not at all Total LUIS-7 score (0-4 normal; 5-9 mild; 10-14 moderate; 15-21 severe): 6 Source: Developed by Andria Brown Kurt Kroenke and colleagues, with an educational vahe from [employer]. LUIS-7 Assessment Billing LUIS-7 Assessment Tool: LUIS-7 Assessment 74723 Review of Systems Const Denies headache(s) and Reports weight loss (Intentional) Eyes Denies loss of vision ENT Denies vertigo, Denies dizziness, Denies headache(s), Denies sore throat and Reports other (Mouth pain and rotten teeth) Card Denies chest pain, Denies leg edema and Denies lightheadedness Resp Denies cough, Denies hemoptysis and Denies wheezing GI Denies abdominal pain, Denies melena, Denies constipation, Denies diarrhea and Denies vomiting Denies dysuria, Denies urinary frequency and Denies urinary urgency Musc Reports back pain (resolved mostly after trying his friend gordo), Reports arthralgias (right knee), Denies joint swelling, Reports numbness (bilateral feet) and Denies tingling Neuro Denies Abnormal speech present, Denies behavioral changes, Denies vertigo, Denies dizziness, Denies headache(s), Denies loss of vision, Denies memory loss, Reports numbness (bilateral feet) and Denies tingling Psych Denies anxiety, Denies behavioral changes, Denies depression, Denies memory loss and Denies panic attacks Mannie/Lymph Denies easy bleeding and Denies easy bruising Aller/Immun Denies wheezing Physical exam (Primary Care) Vital Signs: Last Vital Signs Temp 98.6 F 08/10/24 15:50 Pulse 75 08/10/24 15:50 Resp 16 08/10/24 15:50 BP 128/84 08/10/24 15:50 Pulse Ox 98 08/10/24 15:50 Oxygen Delivery Method Room Air 08/10/24 15:50 BMI result Body Mass Index 44.4 Tobacco/Smoking Status: Tobacco use Status Tobacco use date assessed 08/10/24 08/10/24 16:08 Patient Tobacco Use Status Current everyday Tobacco 08/10/24 15:51 Tobacco use type Cigarette 08/10/24 15:51 e-Cigarette/Vaping Use Never Used 08/10/24 15:51 PHQ-9: PHQ-9 Score PHQ-9: Total score 3 08/10/24 16:25 Depression Screening Interpretation: Negative Thrive Assessment: Date of Thrive Assessment Date Thrive assessed 08/10/24 08/10/24 16:08 Currently or been in a relationship where the following occur: No concerns reported Const General: healthy appearing, no acute distress, alert and awake Nutritional Appearance: well nourished Orientation/consciousness: oriented to person, oriented to place and oriented to time HENMT Ears: TM's normal bilaterally General nose exam: Normal nasal mucous membranes and turbinates present Teeth and gingiva: gingiva abnormal diffusely erythematous and tender Eyes Conjunctivae: conjunctivae normal Sclerae: sclerae normal Pupils: Equal, round and reactive pupils present Neck Neck: Yes no lymphadenopathy and Yes no JVD Thyroid: Thyroid normal Carotids: no bruits Resp Effort & Inspection: normal respiratory effort and not tachypneic Auscultation: no crackles, no rales, no rhonchi and no wheezes Cardio Rate: regular rate Rhythm: regular rhythm Heart sounds: no murmurs and normal S1 and S2 GI Palpation (GI): Soft to palpation, nontender, no hepatomegaly and no splenomegaly Auscultation: normal bowel sounds Skin General skin exam: no rashes or lesions noted and dry skin Neuro General: oriented to person, oriented to place and oriented to time Cranial nerves: Yes Equal, round and reactive pupils present Speech: No Abnormal speech present Gait exam (Neuro): Normal gait present Motor exam (neuro): no tremor noted Extrem Right upper extremity: full ROM Left upper extremity: full ROM Right lower extremity: full ROM; no edema Left lower extremity: full ROM; no edema Psych Mental Status: mental status grossly normal Speech and movement: Normal speech and movement present Affect: normal affect Attitude: cooperative Thought process: Normal thought process present Results AMB Hemoglobin A1c AMB Hemoglobin A1c 5.9 % Last Edit by Rosalba Cooper CMA on 08/10/24 16:10 Immunizations Boostrix Tdap 2.5 Lf unit-8 mcg-5 Lf/0.5 mL intramuscular syringe Performing Provider: CHIQUI Pardo [place] Administered by: Rosalba Cooper CMA on 08/10/24 16:33 Dose Route Admin Location Dispensed Lot Number Expiration Date [facility] Curb Attendant 0.5 mL IM Right Deltoid 0.5 mL [id number] 12/05/26 [id number] [employer] VIS Given Date VIS Provided VIS Publication Date 08/10/24 Single Vaccine 24 Eligibility Eligibility Date Funding Source Not [facility] Eligible 08/10/24 Private Results Reviewed Results Reviewed: Laboratory Last Values Hgb A1c (Clinic) 5.9 % (4.0-6.0) 08/10/24 16:09 Coding Level of Care Code Est Pt Prev Care 18-39y(51774) Diagnoses Physical exam Z00.00 Type 2 diabetes mellitus with morbid obesity E11.69; E66.01 Poorly controlled type 2 diabetes mellitus E11.65 Morbid obesity E66.01 Hypertension, unspecified type I10 Hypertension type: unspecified Chronic pain of right knee M25.561; G89.29 Chronicity: chronic 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 Nicotine use Z72.0 Umbilical hernia without obstruction and without gangrene K42.9 Obstruction and gangrene presence: without obstruction or gangrene Gingivitis K05.10 Additional Codes LUIS-7 Assessment Billing - LUIS-7 Assessment Tool: LUIS-7 Assessment 37746 ([id number]) PHQ-9 - 49932 - PHQ-9 Billing: Yes ([id number]) Time Spent (min) 40 Assessment & Plan Assessment & Plan (1) Physical exam: Code(s): Z00.00 - Encounter for general adult medical examination without abnormal findings Category: Medical (2) Type 2 diabetes mellitus with morbid obesity: Code(s): E11.69 - Type 2 diabetes mellitus with other specified complication; E66.01 - Morbid (severe) obesity due to excess calories Category: Medical (3) Poorly controlled type 2 diabetes mellitus: Code(s): E11.65 - Type 2 diabetes mellitus with hyperglycemia Category: Medical (4) Morbid obesity: Code(s): E66.01 - Morbid (severe) obesity due to excess calories Category: Medical (5) Hypertension: Code(s): I10 - Essential (primary) hypertension Category: Medical Qualifiers: Hypertension type: unspecified Qualified Code(s): I10 - Essential (primary) hypertension (6) Right knee pain: Code(s): M25.561 - Pain in right knee Category: Medical Qualifiers: Chronicity: chronic Qualified Code(s): M25.561 - Pain in right knee; G89.29 - Other chronic pain (7) Lumbar and sacral spondylarthritis: Code(s): M47.817 - Spondylosis without myelopathy or radiculopathy, lumbosacral region Category: Medical (8) Nicotine use: Code(s): Z72.0 - Tobacco use Category: Medical (9) Umbilical hernia: Code(s): K42.9 - Umbilical hernia without obstruction or gangrene Category: Medical Qualifiers: Obstruction and gangrene presence: without obstruction or gangrene Qualified Code(s): K42.9 - Umbilical hernia without obstruction or gangrene (10) Gingivitis: Code(s): K05.10 - Chronic gingivitis, plaque induced Category: Medical Plan Preventative guidelines reviewed with the patient. No recent labs were completed. A1c was done in office 5.9%. Patient is up-to-date on dental and eye exam. The patient received a tetanus booster during the visit, addressing the overdue immunization. Augmentin was prescribed to temporarily manage the suspected dental infection, providing symptomatic relief pending dental evaluation. Further management of his chronic conditions includes diabetes mellitus with notable control, where recent labs reflect an A1c at desirable levels, and ongoing hypertension management through lifestyle modifications. A plan for routine labs was executed, including cholesterol screening, to monitor and manage his condition optimally. Knee pain was evaluated for further imaging via x-ray, and Cologuard testing was proposed for colorectal cancer screening due to age appropriateness. Comprehensive lifestyle and social guidance was provided, focusing on reinstating regular influenza vaccinations and encouragement towards smoking cessation to enhance long-term health outcomes. A return visit is planned in four months to assess the effectiveness of interventions and adjust the management plan accordingly. Patient was informed and verbally consented to the use of an ambient scribe for clinic note documentation during this visit. Orders: Orders AMB Hemoglobin A1c Today E11.9 - Type 2 diabetes mellitus without complications TDaP Immunization Today Z23 - Encounter for immunization XR knee RT 3V Today M25.561 - Pain in right knee Complete Blood Count Auto Diff Today E11.65 - Type 2 diabetes mellitus with hyperglycemia, E11.69 - Type 2 diabetes mellitus with other specified complication, E66.01 - Morbid (severe) obesity due to excess calories, I10 - Essential (primary) hypertension, M25.561 - Pain in right knee, M47.817 - Spondylosis without myelopathy or radiculopathy, lumbosacral region, M54.50 - Low back pain, unspecified Lipid Panel Today E11.65 - Type 2 diabetes mellitus with hyperglycemia, E11.69 - Type 2 diabetes mellitus with other specified complication, E66.01 - Morbid (severe) obesity due to excess calories, I10 - Essential (primary) hypertension, M25.561 - Pain in right knee, M47.817 - Spondylosis without myelopathy or radiculopathy, lumbosacral region, M54.50 - Low back pain, unspecified UA CC w/rflx Micro + Cult Today E11.65 - Type 2 diabetes mellitus with hyperglycemia, E11.69 - Type 2 diabetes mellitus with other specified complication, E66.01 - Morbid (severe) obesity due to excess calories, I10 - Essential (primary) hypertension, M25.561 - Pain in right knee, M47.817 - Spondylosis without myelopathy or radiculopathy, lumbosacral region, M54.50 - Low back pain, unspecified TSH reflex Free T4 Today E11.65 - Type 2 diabetes mellitus with hyperglycemia, E11.69 - Type 2 diabetes mellitus with other specified complication, E66.01 - Morbid (severe) obesity due to excess calories, I10 - Essential (primary) hypertension, M25.561 - Pain in right knee, M47.817 - Spondylosis without myelopathy or radiculopathy, lumbosacral region, M54.50 - Low back pain, unspecified Comprehensive [place]. Panel Fast Today E11.65 - Type 2 diabetes mellitus with hyperglycemia, E11.69 - Type 2 diabetes mellitus with other specified complicat ion, E66.01 - Morbid (severe) obesity due to excess calories, I10 - Essential (primary) hypertension, M25.561 - Pain in right knee, M47.817 - Spondylosis without myelopathy or radiculopathy, lumbosacral region, M54.50 - Low back pain, unspecified Vitamin D 25-OH Total Today E11.65 - Type 2 diabetes mellitus with hyperglycemia, E11.69 - Type 2 diabetes mellitus with other specified complication, E66.01 - Morbid (severe) obesity due to excess calories, I10 - Essential (primary) hypertension, M25.561 - Pain in right knee, M47.817 - Spondylosis without myelopathy or radiculopathy, lumbosacral region, M54.50 - Low back pain, unspecified Glucose Fasting Today E11.65 - Type 2 diabetes mellitus with hyperglycemia, E11.69 - Type 2 diabetes mellitus with other specified complication, E66.01 - Morbid (severe) obesity due to excess calories, I10 - Essential (primary) hypertension, M25.561 - Pain in right knee, M47.817 - Spondylosis without myel opathy or radiculopathy, lumbosacral region, M54.50 - Low back pain, unspecified Referrals Cologuard Test Z12.11 - Encounter for screening for malignant neoplasm of colon, Z12.12 - Encounter for screening for malignant neoplasm of rectum Medications: New amoxicillin-pot clavulanate 875-125 mg 1 tab PO BID 10 days 20 tabs 0RF Refilled sildenafil (Viagra) administer 30 minutes to 4 hours before activity 50 mg PO DAILY PRN 20 tabs 4RF sexual activity gabapentin 900 mg (3 x 300 mg) PO TID 30 days 270 caps 0RF
== END 2024-08-10 16:48 | disposition home or self-care (01) ==
LOC: HO.HMCH 15:43
DX: Z00.00 Encounter for general adult medical examination without abnormal findings (principal); E11.69 Type 2 diabetes mellitus with other specified complication; Z68.41 Body mass index [BMI] 40.0-44.9, adult; E66.01 Morbid (severe) obesity due to excess calories; E11.65 Type 2 diabetes mellitus with hyperglycemia; E11.9 Type 2 diabetes mellitus without complications; I10 Essential (primary) hypertension; M25.561 Pain in right knee; M47.817 Spondylosis without myelopathy or radiculopathy, lumbosacral region; Z72.0 Tobacco use; K42.9 Umbilical hernia without obstruction or gangrene; Z23 Encounter for immunization

== ENCOUNTER → 2024-08-10 15:43 | Outpatient (BNVA) | payer BC, SELFPAY | DX: Z00.00 Encounter for general adult medical examination without abnormal findings (principal); Z23 Encounter for immunization; E11.69 Type 2 diabetes mellitus with other specified complication; E66.01 Morbid (severe) obesity due to excess calories; Z68.41 Body mass index [BMI] 40.0-44.9, adult; E11.65 Type 2 diabetes mellitus with hyperglycemia; I10 Essential (primary) hypertension; M25.561 Pain in right knee; G89.29 Other chronic pain; M47.817 Spondylosis without myelopathy or radiculopathy, lumbosacral region; K42.9 Umbilical hernia without obstruction or gangrene; K05.10 Chronic gingivitis, plaque induced; Z72.0 Tobacco use | CPT/HCPCS: 83036; 90471; 90715; 96127 ==